=== PATIENT | male | born 1955 | race African-American/Black ===

== ENCOUNTER 2017-11-21 19:51 | Emergency (ER) | payer MEDICARE, MEDICAID ==
[~2017-11-21] VITALS: Ht 177.8 cm; Wt 61.0 kg
[2017-11-21] MEDS ORDERED: SODIUM CHLORIDE 0.9% 1,000 ML IV ONE (20:51)
[2017-11-21] MEDS ORDERED: VANCOMYCIN 1 G PREMIX 200 ML IV SCH (21:00)
[2017-11-21 21:15] LABS: EOSINOPHILS % 1.5 % (0.0-5.0); HEMATOCRIT. 34.4 % (42.0-52.0); HEMOGLOBIN. 10.4 g/dL (14.0-18.0); LYMPHOCYTES % 13.8 % (20.0-50.0); MEAN CORPUSCULAR HEMOGLOBIN 22.1 pg (28.0-32.0); MEAN PLATELET VOLUME 7.6 fl (7.4-10.4); MONOCYTES % 3.9 % (2.0-8.0); NEUTROPHILS % 79.8 % (40.0-76.0); PLATELET 410 x1000/uL (130-400); RED BLOOD CELL COUNT 4.72 mill/uL (4.7-6.1); RED CELL DISTRIBUTION WIDTH 20.7 % (11.6-14.6)
[2017-11-21 21:18] LABS: CHLORIDE 112 mEq/L (98-107)
[2017-11-21 21:25] LABS: BETA HYDROXYBUTYRATE 0.1 mMol/L (0.0-0.3)
[2017-11-22 01:08] LABS: CLARITY URINE CLEAR (CLEAR); COLOR URINE YELLOW (YELLOW); KETONES URINE NEGATIVE (NEGATIVE); LEUKOCYTE ESTERASE URINE NEGATIVE (NEGATIVE); NITRITE URINE NEGATIVE (NEGATIVE); OCCULT BLOOD URINE NEGATIVE (NEGATIVE); PROTEIN URINE 1+ (NEGATIVE); SPECIFIC GRAVITY URINE 1.033 (1.005-1.030)
[2017-11-22 07:39] VITALS: BP 138/88
== END 2017-11-22 08:36 | disposition short-term general hospital (02) ==
LOC: ER 21:19
DX: B08.4 Enteroviral vesicular stomatitis with exanthem (principal); M79.89 Other specified soft tissue disorders; E11.65 Type 2 diabetes mellitus with hyperglycemia
CPT/HCPCS: 36415; 71045; 73140; 80053; 81003; 82010; 85025; 93005; 96365; 99285; J3370; J7030

== ENCOUNTER 2020-09-15 14:27 | Inpatient (IN) | payer MEDICARE, MEDICAID ==
[~2020-09-15] VITALS: Ht 177.8 cm; Wt 72.7 kg
[2020-09-15] MEDS ORDERED: SODIUM CHLORIDE 0.9% 1,000 ML IV ONE (15:30)
[2020-09-15 15:56] LABS: EOSINOPHILS % 0.3 % (0.0-5.0); HEMATOCRIT. 35.1 % (42.0-52.0); HEMOGLOBIN. 10.3 g/dL (14.0-18.0); LYMPHOCYTES % 8.9 % (20.0-50.0); MEAN CORPUSCULAR HEMOGLOBIN 21.9 pg (28.0-32.0); MEAN CORPUSCULAR VOLUME 74.3 fL (80.0-94.0); MEAN PLATELET VOLUME 7.6 fl (7.4-10.4); MONOCYTES % 4.5 % (2.0-8.0); NEUTROPHILS % 85.3 % (40.0-76.0); PLATELET 399 x1000/uL (130-400); RED BLOOD CELL COUNT 4.72 mill/uL (4.7-6.1); RED CELL DISTRIBUTION WIDTH 20.1 % (11.6-14.6)
[2020-09-15] MEDS ORDERED: LORAZEPAM 2MG/ML CPJ IV ONE (16:00)
[2020-09-15 16:04] LABS: CHLORIDE 109 mEq/L (98-107)
[2020-09-15] MEDS ORDERED: SODIUM CHLORIDE 0.9% 1000ML BAG (SEPSIS BOLUS) IV ONE (16:45)
[2020-09-15 17:42] LABS: CLARITY URINE CLEAR (CLEAR); COLOR URINE YELLOW (YELLOW); KETONES URINE 1+ (NEGATIVE); LEUKOCYTE ESTERASE URINE NEGATIVE (NEGATIVE); NITRITE URINE NEGATIVE (NEGATIVE); OCCULT BLOOD URINE NEGATIVE (NEGATIVE); PROTEIN URINE TRACE (NEGATIVE)
[2020-09-15] MEDS ORDERED: ONDANSETRON HCL 4MG/2ML INJ IV PRN (18:00)
[2020-09-15] MEDS ORDERED: CEFTRIAXONE 1 G PREMIX 50 ML IV SCH (18:00)
[2020-09-15] MEDS ORDERED: AZITHROMYCIN 500 MG in DEXT 5% WATER 250 ML IV SCH (19:00)
[2020-09-15] MEDS: DEXT 5%/0.45% NACL 1000ML 1,000 ML IV SCH (20:24)
[2020-09-15] MEDS: HEPARIN 5000 UNITS/ML VIAL SUBCUT SCH (21:47)
[2020-09-16 04:00] VITALS: BP 112/61
[2020-09-16 04:08] VITALS: BP 112/61
[2020-09-16 08:00] VITALS: BP 104/59
[2020-09-16] MEDS: HEPARIN 5000 UNITS/ML VIAL SUBCUT SCH ×2 (08:57→21:26)
[2020-09-16 09:10] LABS: BASOPHILS % 0.3 % (0.0-2.0); EOSINOPHILS % 0.7 % (0.0-5.0); HEMATOCRIT. 35.2 % (42.0-52.0); HEMOGLOBIN. 10.5 g/dL (14.0-18.0); LYMPHOCYTES % 8.6 % (20.0-50.0); MEAN CORPUSCULAR HEMOGLOBIN 22.2 pg (28.0-32.0); MEAN CORPUSCULAR VOLUME 74.8 fL (80.0-94.0); MEAN PLATELET VOLUME 7.7 fl (7.4-10.4); MONOCYTES % 3.2 % (2.0-8.0); NEUTROPHILS % 87.2 % (40.0-76.0); PLATELET 412 x1000/uL (130-400); RED BLOOD CELL COUNT 4.71 mill/uL (4.7-6.1); RED CELL DISTRIBUTION WIDTH 20.1 % (11.6-14.6)
[2020-09-16 09:22] LABS: CHLORIDE 110 mEq/L (98-107)
[2020-09-16] MEDS: DEXT 5%/0.45% NACL 1000ML 1,000 ML IV SCH (10:50)
[2020-09-16 12:00] VITALS: BP 113/57
[2020-09-16 16:00] VITALS: BP 123/59
[2020-09-16] MEDS: AZITHROMYCIN 500 MG in DEXT 5% WATER 250 ML IV SCH (17:10)
[2020-09-16] MEDS: PANTOPRAZOLE SODIUM 40 MG/VIAL IV SCH (17:10)
[2020-09-16] MEDS: MORPHINE SULFATE 2 MG/ML CPJ (NOT FOR IM USE) IV PRN ×2 (19:04→22:51)
[2020-09-16 20:00] VITALS: BP 121/67
[2020-09-16] MEDS: CEFTRIAXONE 1,000 MG in DEXTROSE 5% WATER 50 ML IV SCH (22:51)
[2020-09-17] VITALS: BP 139/86
[2020-09-17] MEDS: IPRATROPIUM/ALBUTEROL 0.5-3(2.5)MG/3ML NEB HHN SCH ×4 (02:53→21:49)
[2020-09-17] MEDS: DEXT 5%/0.45% NACL 1000ML 1,000 ML IV SCH (03:50)
[2020-09-17 04:00] VITALS: BP 114/66
[2020-09-17] MEDS: MORPHINE SULFATE 2 MG/ML CPJ (NOT FOR IM USE) IV PRN ×2 (05:21→20:33)
[2020-09-17 07:46] LABS: BASOPHILS % 0.9 % (0.0-2.0); EOSINOPHILS % 2.2 % (0.0-5.0); HEMATOCRIT. 37.3 % (42.0-52.0); HEMOGLOBIN. 11.1 g/dL (14.0-18.0); LYMPHOCYTES % 11.6 % (20.0-50.0); MEAN CORPUSCULAR HEMOGLOBIN 22.3 pg (28.0-32.0); MEAN CORPUSCULAR VOLUME 75.4 fL (80.0-94.0); MEAN PLATELET VOLUME 8.3 fl (7.4-10.4); MONOCYTES % 6.5 % (2.0-8.0); NEUTROPHILS % 78.8 % (40.0-76.0); PLATELET 408 x1000/uL (130-400); RED BLOOD CELL COUNT 4.95 mill/uL (4.7-6.1)
[2020-09-17 07:56] LABS: CHLORIDE 107 mEq/L (98-107)
[2020-09-17 08:00] VITALS: BP 104/60
[2020-09-17 08:15] LABS: TOTAL IRON BINDING CAPACITY 337 ug/dL (250-450)
[2020-09-17 08:21] LABS: FOLIC ACID (FOLATE) SERUM 14.7 ng/mL (>5.38)
[2020-09-17] MEDS: HEPARIN 5000 UNITS/ML VIAL SUBCUT SCH ×2 (09:00→20:32)
[2020-09-17] MEDS: PANTOPRAZOLE SODIUM 40 MG/VIAL IV SCH (09:00)
[2020-09-17 12:00] VITALS: BP 109/61
[2020-09-17] MEDS: IRON SUCROSE COMPLEX 100 MG/5 ML ML IV SCH (13:26)
[2020-09-17 16:00] VITALS: BP 111/66
[2020-09-17] MEDS: AZITHROMYCIN 500 MG in DEXT 5% WATER 250 ML IV SCH (17:10)
[2020-09-17 20:00] VITALS: BP 114/66
[2020-09-17] MEDS: CEFTRIAXONE 1,000 MG in DEXTROSE 5% WATER 50 ML IV SCH (20:32)
[2020-09-17] MEDS: ATORVASTATIN CALCIUM 10MG TABLET PO SCH (20:32)
[2020-09-18] VITALS (7 sets, daily range): BP systolic 102–122; BP diastolic 58–68
[2020-09-18] MEDS: IPRATROPIUM/ALBUTEROL 0.5-3(2.5)MG/3ML NEB HHN SCH ×5 (01:42→21:40)
[2020-09-18] MEDS: DEXT 5%/0.45% NACL 1000ML 1,000 ML IV SCH ×2 (04:28→15:08)
[2020-09-18] MEDS: PANTOPRAZOLE SODIUM 40 MG/VIAL IV SCH (09:29)
[2020-09-18] MEDS: HEPARIN 5000 UNITS/ML VIAL SUBCUT SCH ×2 (09:29→20:03)
[2020-09-18] MEDS: IRON SUCROSE COMPLEX 100 MG/5 ML ML IV SCH (09:30)
[2020-09-18] MEDS: MORPHINE SULFATE 2 MG/ML CPJ (NOT FOR IM USE) IV PRN ×3 (09:30→20:04)
[2020-09-18 09:52] LABS: BASOPHILS % 1.1 % (0.0-2.0); EOSINOPHILS % 3.4 % (0.0-5.0); HEMATOCRIT. 37.7 % (42.0-52.0); HEMOGLOBIN. 11.1 g/dL (14.0-18.0); LYMPHOCYTES % 16.3 % (20.0-50.0); MEAN CORPUSCULAR HEMOGLOBIN 22.7 pg (28.0-32.0); MEAN CORPUSCULAR VOLUME 76.8 fL (80.0-94.0); MONOCYTES % 8.4 % (2.0-8.0); NEUTROPHILS % 70.8 % (40.0-76.0); RED CELL DISTRIBUTION WIDTH 20.2 % (11.6-14.6)
[2020-09-18 10:15] LABS: CHLORIDE 105 mEq/L (98-107)
[2020-09-18 10:39] LABS: BG BASE EXCESS 0.7 mmol/L (-2.0-2.0); BG CARBOXYHEMOGLOBIN 0.5 % (0.5-1.5); BG DEOXYHEMOGLOBIN 9.6 % (0.0-5.0); BG HCO3 ACT 25.8 mmol/L (22.0-26.0); BG METHEMOGLOBIN 0.3 % (0.0-1.5); BG OXYGEN SATURATION 90.3 % (92.0-98.5); BG OXYHEMOGLOBIN 89.6 % (94.0-97.0); BG PCO2 43.5 mmHg (35.0-45.0); BG PH 7.391 (7.350-7.450); BG PO2 58.6 mmHg (75.0-100.0); BG SAMPLE SITE RIGHT BRACHIAL; BG TOTAL HEMOGLOBIN 10.5 g/dL (12.0-18.0); BG VENT MODE ROOM AIR
[2020-09-18 10:56] LABS: PLATELET 338 x1000/uL (130-400)
[2020-09-18 10:57] LABS: MEAN PLATELET VOLUME 8.6 fl (7.4-10.4)
[2020-09-18 11:51] LABS: *AMPHETAMINES SCREEN URINE NEGATIVE (NEGATIVE); CANNABINOID URINE SCREEN NEGATIVE (NEGATIVE); OPIATES URINE SCREEN PRESUMTIVE POSITIVE (NEGATIVE)
[2020-09-18 11:52] LABS: *BARBITURATES SCREEN URINE NEGATIVE (NEGATIVE); *BENZODIAZEPINES SCREEN URINE NEGATIVE (NEGATIVE)
[2020-09-18 11:56] LABS: PHENCYCLIDINE URINE SCREEN NEGATIVE (NEGATIVE)
[2020-09-18 11:59] LABS: METHADONE URINE SCREEN NEGATIVE (NEGATIVE)
[2020-09-18 12:00] LABS: *COCAINE SCREEN URINE NEGATIVE (NEGATIVE)
[2020-09-18] MEDS: DOCUSATE SODIUM 250MG CAPSULE PO SCH (12:00)
[2020-09-18] MEDS: AZITHROMYCIN 500 MG in DEXT 5% WATER 250 ML IV SCH (17:21)
[2020-09-18] MEDS: ACETAMINOPHEN 325MG TABLET PO PRN (18:16)
[2020-09-18] MEDS: ATORVASTATIN CALCIUM 10MG TABLET PO SCH (20:03)
[2020-09-18] MEDS: CEFTRIAXONE 1,000 MG in DEXTROSE 5% WATER 50 ML IV SCH (20:03)
[2020-09-18] MEDS: TRAZODONE HCL 50MG TABLET PO PRN (20:32)
[2020-09-19] VITALS: BP 90/56
[2020-09-19] MEDS: IPRATROPIUM/ALBUTEROL 0.5-3(2.5)MG/3ML NEB HHN SCH ×4 (02:10→20:24)
[2020-09-19 08:00] VITALS: BP 114/56
[2020-09-19] MEDS: IRON SUCROSE COMPLEX 100 MG/5 ML ML IV SCH (09:33)
[2020-09-19] MEDS: DOCUSATE SODIUM 250MG CAPSULE PO SCH (09:33)
[2020-09-19] MEDS: PANTOPRAZOLE SODIUM 40 MG/VIAL IV SCH (09:33)
[2020-09-19] MEDS: HEPARIN 5000 UNITS/ML VIAL SUBCUT SCH ×2 (09:33→20:01)
[2020-09-19] MEDS: MORPHINE SULFATE 2 MG/ML CPJ (NOT FOR IM USE) IV PRN ×3 (10:09→20:05)
[2020-09-19 10:15] LABS: BASOPHILS % 0.9 % (0.0-2.0); EOSINOPHILS % 4.4 % (0.0-5.0); HEMATOCRIT. 36.4 % (42.0-52.0); HEMOGLOBIN. 10.6 g/dL (14.0-18.0); LYMPHOCYTES % 15.4 % (20.0-50.0); MEAN CORPUSCULAR HEMOGLOBIN 22.1 pg (28.0-32.0); MEAN CORPUSCULAR VOLUME 76.1 fL (80.0-94.0); MEAN PLATELET VOLUME 8.2 fl (7.4-10.4); MONOCYTES % 5.3 % (2.0-8.0); PLATELET 273 x1000/uL (130-400); RED BLOOD CELL COUNT 4.78 mill/uL (4.7-6.1); RED CELL DISTRIBUTION WIDTH 20.1 % (11.6-14.6)
[2020-09-19 10:19] LABS: CHLORIDE 105 mEq/L (98-107)
[2020-09-19 12:00] VITALS: BP 116/59
[2020-09-19 16:00] VITALS: BP 123/57
[2020-09-19] MEDS: AZITHROMYCIN 500 MG in DEXT 5% WATER 250 ML IV SCH (17:10)
[2020-09-19] MEDS: DEXT 5%/0.45% NACL 1000ML 1,000 ML IV SCH (17:42)
[2020-09-19] MEDS: CEFTRIAXONE 1,000 MG in DEXTROSE 5% WATER 50 ML IV SCH (20:00)
[2020-09-19] MEDS: ATORVASTATIN CALCIUM 10MG TABLET PO SCH (20:00)
[2020-09-19 21:08] VITALS: BP 108/70
[2020-09-20] VITALS: BP 131/61
[2020-09-20] MEDS: MORPHINE SULFATE 2 MG/ML CPJ (NOT FOR IM USE) IV PRN ×2 (00:06→06:19)
[2020-09-20] MEDS: IPRATROPIUM/ALBUTEROL 0.5-3(2.5)MG/3ML NEB HHN SCH ×4 (03:16→21:27)
[2020-09-20 04:00] VITALS: BP 127/50
[2020-09-20] MEDS ORDERED: BIMA2.5D4 EACHEYE (07:21)
[2020-09-20 08:00] VITALS: BP 132/72
[2020-09-20] MEDS: PANTOPRAZOLE SODIUM 40 MG/VIAL IV SCH (08:54)
[2020-09-20] MEDS: HYDROCODONE/ACETAMINOPHEN 10/325MG TABLET PO PRN ×2 (08:55→18:25)
[2020-09-20] MEDS: HEPARIN 5000 UNITS/ML VIAL SUBCUT SCH ×2 (08:55→21:12)
[2020-09-20] MEDS: DOCUSATE SODIUM 250MG CAPSULE PO SCH (08:55)
[2020-09-20] MEDS: MEROPENEM 1,000 MG in SODIUM CHLORIDE 0.9% 100 ML IV SCH ×2 (11:33→21:12)
[2020-09-20 12:00] VITALS: BP 104/50
[2020-09-20] MEDS: DEXT 5%/0.45% NACL 1000ML 1,000 ML IV SCH (12:17)
[2020-09-20 16:00] VITALS: BP 119/56
[2020-09-20 20:00] VITALS: BP 107/59
[2020-09-20] MEDS: ATORVASTATIN CALCIUM 10MG TABLET PO SCH (21:12)
[2020-09-20] MEDS: TRAZODONE HCL 50MG TABLET PO PRN (21:57)
[2020-09-21] VITALS: BP 121/61
[2020-09-21] MEDS: HYDROCODONE/ACETAMINOPHEN 10/325MG TABLET PO PRN ×5 (00:08→23:05)
[2020-09-21] MEDS: IPRATROPIUM/ALBUTEROL 0.5-3(2.5)MG/3ML NEB HHN SCH ×4 (01:19→22:05)
[2020-09-21 04:00] VITALS: BP 134/59
[2020-09-21] MEDS: MEROPENEM 1,000 MG in SODIUM CHLORIDE 0.9% 100 ML IV SCH ×3 (05:03→23:05)
[2020-09-21 08:00] VITALS: BP 122/69
[2020-09-21] MEDS: HEPARIN 5000 UNITS/ML VIAL SUBCUT SCH ×2 (08:52→21:00)
[2020-09-21] MEDS: DOCUSATE SODIUM 250MG CAPSULE PO SCH (08:52)
[2020-09-21] MEDS: DEXT 5%/0.45% NACL 1000ML 1,000 ML IV SCH (08:52)
[2020-09-21] MEDS: PANTOPRAZOLE SODIUM 40 MG/VIAL IV SCH (08:52)
[2020-09-21] MEDS: MORPHINE SULFATE 2 MG/ML CPJ (NOT FOR IM USE) IV PRN (08:53)
[2020-09-21 12:00] VITALS: BP 110/76
[2020-09-21 16:00] VITALS: BP 122/70
[2020-09-21 20:00] VITALS: BP 129/67
[2020-09-21] MEDS: ATORVASTATIN CALCIUM 10MG TABLET PO SCH (23:04)
[2020-09-21] MEDS: TRAZODONE HCL 50MG TABLET PO PRN (23:04)
[2020-09-22] VITALS: BP 128/69
[2020-09-22] MEDS: IPRATROPIUM/ALBUTEROL 0.5-3(2.5)MG/3ML NEB HHN SCH ×4 (02:40→20:42)
[2020-09-22 04:00] VITALS: BP 116/58
[2020-09-22] MEDS: MEROPENEM 1,000 MG in SODIUM CHLORIDE 0.9% 100 ML IV SCH ×3 (05:30→21:10)
[2020-09-22] MEDS: DEXT 5%/0.45% NACL 1000ML 1,000 ML IV SCH ×2 (05:36→17:10)
[2020-09-22 08:00] VITALS: BP 134/62
[2020-09-22] MEDS ORDERED: POTASSIUM CHLORIDE 20MEQ TABLET SR PO NR (09:15)
[2020-09-22] MEDS: DOCUSATE SODIUM 250MG CAPSULE PO SCH (09:26)
[2020-09-22] MEDS: PANTOPRAZOLE SODIUM 40 MG/VIAL IV SCH ×2 (09:26→21:11)
[2020-09-22] MEDS: HEPARIN 5000 UNITS/ML VIAL SUBCUT SCH (09:27)
[2020-09-22 10:02] LABS: BG BASE EXCESS 2.5 mmol/L (-2.0-2.0); BG CARBOXYHEMOGLOBIN 0.6 % (0.5-1.5); BG DEOXYHEMOGLOBIN 10.3 % (0.0-5.0); BG FRACTION INSPIRED OXYGEN 21; BG HCO3 ACT 27.5 mmol/L (22.0-26.0); BG METHEMOGLOBIN 0.3 % (0.0-1.5); BG OXYGEN SATURATION 89.6 % (92.0-98.5); BG OXYHEMOGLOBIN 88.8 % (94.0-97.0); BG PCO2 44.6 mmHg (35.0-45.0); BG PH 7.408 (7.350-7.450); BG SAMPLE SITE RIGHT RADIAL; BG TOTAL HEMOGLOBIN 10.7 g/dL (12.0-18.0); BG VENT MODE ROOM AIR
[2020-09-22] MEDS: HYDROCODONE/ACETAMINOPHEN 10/325MG TABLET PO PRN ×3 (10:05→21:30)
[2020-09-22 16:00] VITALS: BP 122/64
[2020-09-22 20:00] VITALS: BP 120/70
[2020-09-22] MEDS: BUDESONIDE 0.5MG/2ML NEB HHN SCH (20:42)
[2020-09-22] MEDS: ATORVASTATIN CALCIUM 10MG TABLET PO SCH (21:10)
[2020-09-23] VITALS: BP 105/60
[2020-09-23] MEDS: IPRATROPIUM/ALBUTEROL 0.5-3(2.5)MG/3ML NEB HHN SCH ×3 (01:42→21:38)
[2020-09-23 04:00] VITALS: BP 127/68
[2020-09-23] MEDS: MEROPENEM 1,000 MG in SODIUM CHLORIDE 0.9% 100 ML IV SCH ×3 (06:15→21:00)
[2020-09-23 07:25] LABS: INR 1.1; PARTIAL THROMBOPLASTIN TIME 36.2 sec (23.4-31.0); PROTHROMBIN TIME 11.9 sec (9.6-11.0)
[2020-09-23 07:35] LABS: BASOPHILS % 1.6 % (0.0-2.0); HEMATOCRIT. 30.8 % (42.0-52.0); HEMOGLOBIN. 9.4 g/dL (14.0-18.0); LYMPHOCYTES % 20.2 % (20.0-50.0); MEAN CORPUSCULAR HEMOGLOBIN 22.8 pg (28.0-32.0); MEAN CORPUSCULAR VOLUME 74.8 fL (80.0-94.0); MEAN PLATELET VOLUME 7.8 fl (7.4-10.4); NEUTROPHILS % 65.2 % (40.0-76.0); PLATELET 385 x1000/uL (130-400); RED BLOOD CELL COUNT 4.12 mill/uL (4.7-6.1)
[2020-09-23 08:34] LABS: CHLORIDE 103 mEq/L (98-107)
[2020-09-23] MEDS: DOCUSATE SODIUM 250MG CAPSULE PO SCH (09:00)
[2020-09-23] MEDS: DEXT 5%/0.45% NACL 1000ML 1,000 ML IV SCH (09:21)
[2020-09-23] MEDS: PANTOPRAZOLE SODIUM 40 MG/VIAL IV SCH ×2 (09:21→20:59)
[2020-09-23 12:00] VITALS: BP 121/74
[2020-09-23] MEDS: BUDESONIDE 0.5MG/2ML NEB HHN SCH ×2 (13:06→21:38)
[2020-09-23 16:00] VITALS: BP 136/72
[2020-09-23] MEDS ORDERED: PROPOFOL 200MG/20ML VIAL IV ONE (17:30)
[2020-09-23] MEDS ORDERED: LIDOCAINE HCL 1% 20ML VIAL (Pyxis) INJ ONE ×2 (17:30→17:36)
[2020-09-23] MEDS ORDERED: ONDANSETRON HCL 4MG/2ML INJ IV PRN (18:15)
[2020-09-23] MEDS ORDERED: HYDROMORPHONE HCL/PF 2MG/ML CPJ IV PRN (18:15)
[2020-09-23] MEDS ORDERED: MEPERIDINE HCL/PF 25MG/ML CPJ IV PRN (18:15)
[2020-09-23] MEDS ORDERED: LABETALOL 5MG/ML SYR 20 MG/4 ML SYRINGE IV PRN (18:15)
[2020-09-23 20:00] VITALS: BP 121/71
[2020-09-23] MEDS: ATORVASTATIN CALCIUM 10MG TABLET PO SCH (21:00)
[2020-09-24] VITALS: BP 137/71
[2020-09-24] MEDS: IPRATROPIUM/ALBUTEROL 0.5-3(2.5)MG/3ML NEB HHN SCH ×4 (02:15→21:13)
[2020-09-24] MEDS: DEXT 5%/0.45% NACL 1000ML 1,000 ML IV SCH ×2 (02:30→19:03)
[2020-09-24 04:00] VITALS: BP 207/121
[2020-09-24] MEDS: MEROPENEM 1,000 MG in SODIUM CHLORIDE 0.9% 100 ML IV SCH ×3 (05:45→20:37)
[2020-09-24 08:00] VITALS: BP 128/69
[2020-09-24] MEDS: DOCUSATE SODIUM 250MG CAPSULE PO SCH (08:35)
[2020-09-24] MEDS: BUDESONIDE 0.5MG/2ML NEB HHN SCH ×2 (09:41→21:10)
[2020-09-24] MEDS: PANTOPRAZOLE SODIUM 40 MG/VIAL IV SCH ×2 (10:11→20:37)
[2020-09-24 12:00] VITALS: BP 131/66
[2020-09-24 16:00] VITALS: BP 131/68
[2020-09-24 20:00] VITALS: BP 133/74
[2020-09-24] MEDS: MORPHINE SULFATE 2 MG/ML CPJ (NOT FOR IM USE) IV PRN (20:38)
[2020-09-24] MEDS: ATORVASTATIN CALCIUM 10MG TABLET PO SCH (21:00)
[2020-09-24] MEDS: TRAZODONE HCL 50MG TABLET PO PRN (22:56)
[2020-09-25] VITALS: BP 129/69
[2020-09-25] MEDS: MORPHINE SULFATE 2 MG/ML CPJ (NOT FOR IM USE) IV PRN ×6 (00:58→22:06)
[2020-09-25] MEDS: IPRATROPIUM/ALBUTEROL 0.5-3(2.5)MG/3ML NEB HHN SCH ×4 (01:35→21:11)
[2020-09-25] MEDS: MEROPENEM 1,000 MG in SODIUM CHLORIDE 0.9% 100 ML IV SCH (05:09)
[2020-09-25] MEDS: BUDESONIDE 0.5MG/2ML NEB HHN SCH (07:47)
[2020-09-25 08:00] VITALS: BP 103/55
[2020-09-25] MEDS: DOCUSATE SODIUM 250MG CAPSULE PO SCH (08:49)
[2020-09-25] MEDS: PANTOPRAZOLE SODIUM 40 MG/VIAL IV SCH ×2 (08:50→21:13)
[2020-09-25] MEDS: DEXT 5%/0.45% NACL 1000ML 1,000 ML IV SCH (12:30)
[2020-09-25] MEDS: LIDOCAINE/PRILOCAINE CREAM 5 GM TUBE TOP SCH (15:38)
[2020-09-25 16:00] VITALS: BP_SYST 120; BP_SYST 126; BP_DIAS 84
[2020-09-25 20:00] VITALS: BP 145/73
[2020-09-25] MEDS: ATORVASTATIN CALCIUM 10MG TABLET PO SCH (21:00)
[2020-09-26] VITALS: BP 121/64
[2020-09-26] MEDS: IPRATROPIUM/ALBUTEROL 0.5-3(2.5)MG/3ML NEB HHN SCH ×4 (02:43→20:18)
[2020-09-26 04:00] VITALS: BP 124/62
[2020-09-26] MEDS: DEXT 5%/0.45% NACL 1000ML 1,000 ML IV SCH (06:52)
[2020-09-26 08:00] VITALS: BP 123/66
[2020-09-26] MEDS: LIDOCAINE/PRILOCAINE CREAM 5 GM TUBE TOP SCH (08:42)
[2020-09-26] MEDS: DOCUSATE SODIUM 250MG CAPSULE PO SCH (08:42)
[2020-09-26] MEDS: PANTOPRAZOLE SODIUM 40 MG/VIAL IV SCH ×2 (08:42→21:16)
[2020-09-26] MEDS: MORPHINE SULFATE 2 MG/ML CPJ (NOT FOR IM USE) IV PRN ×3 (08:43→17:19)
[2020-09-26 12:00] VITALS: BP 127/66
[2020-09-26] MEDS: MEROPENEM 1,000 MG in SODIUM CHLORIDE 0.9% 100 ML IV SCH ×2 (12:59→21:16)
[2020-09-26 16:00] VITALS: BP 135/70
[2020-09-26 16:50] LABS: BASOPHILS % 1.3 % (0.0-2.0); EOSINOPHILS % 3.7 % (0.0-5.0); HEMATOCRIT. 39.7 % (42.0-52.0); HEMOGLOBIN. 11.5 g/dL (14.0-18.0); LYMPHOCYTES % 17.8 % (20.0-50.0); MEAN CORPUSCULAR HEMOGLOBIN 22.8 pg (28.0-32.0); MEAN CORPUSCULAR VOLUME 78.4 fL (80.0-94.0); MEAN PLATELET VOLUME 7.9 fl (7.4-10.4); MONOCYTES % 5.7 % (2.0-8.0); NEUTROPHILS % 71.5 % (40.0-76.0); PLATELET 369 x1000/uL (130-400); RED BLOOD CELL COUNT 5.06 mill/uL (4.7-6.1); RED CELL DISTRIBUTION WIDTH 21.1 % (11.6-14.6)
[2020-09-26 16:57] LABS: CHLORIDE 104 mEq/L (98-107)
[2020-09-26 20:00] VITALS: BP 151/67
[2020-09-26] MEDS: ATORVASTATIN CALCIUM 10MG TABLET PO SCH (21:00)
[2020-09-27] VITALS: BP 120/53
[2020-09-27] MEDS: IPRATROPIUM/ALBUTEROL 0.5-3(2.5)MG/3ML NEB HHN SCH ×3 (03:02→20:43)
[2020-09-27 08:00] VITALS: BP 105/54
[2020-09-27] MEDS: DOCUSATE SODIUM 250MG CAPSULE PO SCH (09:00)
[2020-09-27] MEDS: PANTOPRAZOLE SODIUM 40 MG/VIAL IV SCH ×2 (09:00→21:01)
[2020-09-27] MEDS: LIDOCAINE/PRILOCAINE CREAM 5 GM TUBE TOP SCH (09:18)
[2020-09-27 10:48] LABS: INR 1.2; PARTIAL THROMBOPLASTIN TIME 34.7 sec (23.4-31.0); PROTHROMBIN TIME 12.7 sec (9.6-11.0)
[2020-09-27 11:09] LABS: CHLORIDE 104 mEq/L (98-107)
[2020-09-27] MEDS ORDERED: LIDOCAINE HCL 1% 20ML VIAL (Pyxis) INJ ONE (11:57)
[2020-09-27 12:00] VITALS: BP 109/64
[2020-09-27] MEDS: DEXT 5%/0.45% NACL 1000ML 1,000 ML IV SCH (13:09)
[2020-09-27] MEDS: MORPHINE SULFATE 2 MG/ML CPJ (NOT FOR IM USE) IV PRN ×3 (13:09→21:20)
[2020-09-27] MEDS: MEROPENEM 1,000 MG in SODIUM CHLORIDE 0.9% 100 ML IV SCH ×2 (13:10→21:02)
[2020-09-27 16:00] VITALS: BP 106/64
[2020-09-27] MEDS: BLOOD SUGAR DIAGNOSTIC STRIP TEST SCH (17:40)
[2020-09-27] MEDS ORDERED: DEXTROSE 50% WATER 50ML SYRINGE IV NR (17:45)
[2020-09-27] MEDS: TOTAL PARENTERAL NUTRITION 2,500 ML IV SCH (18:28)
[2020-09-27 20:00] VITALS: BP 109/57
[2020-09-27] MEDS: ATORVASTATIN CALCIUM 10MG TABLET PO SCH (20:42)
[2020-09-27] MEDS ORDERED: CHLORHEXIDINE GLUCONATE 4% EXTERNAL USE TOP SCH (21:00)
[2020-09-27] MEDS: FAT EMULSIONS 500 ML IV SCH (21:56)
[2020-09-28] VITALS (51 sets, daily range): BP systolic 76–149; BP diastolic 31–73
[2020-09-28] MEDS: BLOOD SUGAR DIAGNOSTIC STRIP TEST SCH ×5 (00:55→17:12)
[2020-09-28] MEDS: MORPHINE SULFATE 2 MG/ML CPJ (NOT FOR IM USE) IV PRN ×4 (02:15→22:16)
[2020-09-28] MEDS: IPRATROPIUM/ALBUTEROL 0.5-3(2.5)MG/3ML NEB HHN SCH ×4 (02:40→21:02)
[2020-09-28] MEDS: MEROPENEM 1,000 MG in SODIUM CHLORIDE 0.9% 100 ML IV SCH ×3 (05:00→21:42)
[2020-09-28] MEDS: CHLORHEXIDINE GLUCONATE 4% EXTERNAL USE TOP SCH ×2 (05:02→09:00)
[2020-09-28] MEDS ORDERED: BUPIVACAINE HCL/PF 0.5% (5MG/ML) 10ML ONE (06:25)
[2020-09-28] MEDS ORDERED: SKIN ADHESIVE 0.7 GM EA TOP ONE (06:25)
[2020-09-28] MEDS ORDERED: TETRACAINE/BENZOCAINE/BUTAMBEN 20 GM SPRAY MM ONE (06:25)
[2020-09-28] MEDS ORDERED: BACITRACIN 50,000 UNITS/VIAL ONE (06:26)
[2020-09-28] MEDS: DEXT 5%/0.45% NACL 1000ML 1,000 ML IV SCH (06:30)
[2020-09-28 07:16] LABS: EOSINOPHILS % 3.9 % (0.0-5.0); HEMATOCRIT. 38.4 % (42.0-52.0); HEMOGLOBIN. 10.1 g/dL (14.0-18.0); LYMPHOCYTES % 9.6 % (20.0-50.0); MEAN CORPUSCULAR HEMOGLOBIN 23.6 pg (28.0-32.0); MEAN CORPUSCULAR VOLUME 89.6 fL (80.0-94.0); MONOCYTES % 4.9 % (2.0-8.0); NEUTROPHILS % 80.6 % (40.0-76.0); PLATELET 349 x1000/uL (130-400); RED BLOOD CELL COUNT 4.28 mill/uL (4.7-6.1)
[2020-09-28] MEDS ORDERED: MORPHINE SULFATE/PF 1MG/ML 10ML AMP ONE (07:33)
[2020-09-28] MEDS ORDERED: ROCURONIUM BROMIDE 10MG/ML VIAL 5ML IV ONE ×2 (07:37→10:18)
[2020-09-28] MEDS ORDERED: DEXAMETHASONE 4MG/ML 1ML VIAL ONE (07:49)
[2020-09-28] MEDS ORDERED: CEFAZOLIN SODIUM 1000MG/VIAL ONE (07:49)
[2020-09-28] MEDS ORDERED: ALBUMIN HUMAN 12.5G/250ML (5%) IV ONE ×2 (08:13→08:15)
[2020-09-28] MEDS ORDERED: ALBUMIN HUMAN 25GM/100ML (25%) IV ONE (08:16)
[2020-09-28] MEDS ORDERED: METOPROLOL TARTRATE 5MG/5ML VIAL IV ONE (08:20)
[2020-09-28] MEDS ORDERED: HYDRALAZINE 20MG/ML VIAL ONE (08:25)
[2020-09-28] MEDS: LIDOCAINE/PRILOCAINE CREAM 5 GM TUBE TOP SCH (09:00)
[2020-09-28] MEDS: DOCUSATE SODIUM 250MG CAPSULE PO SCH (09:00)
[2020-09-28] MEDS: PANTOPRAZOLE SODIUM 40 MG/VIAL IV SCH ×2 (09:00→21:49)
[2020-09-28] MEDS ORDERED: CALCIUM CHLORIDE 1GM/10ML SYR IV ONE (09:30)
[2020-09-28] MEDS ORDERED: BACITRACIN 15GM TUBE TOP ONE (09:49)
[2020-09-28] MEDS ORDERED: VASOPRESSIN 20 UNIT/ML 1ML ONE (09:49)
[2020-09-28] MEDS ORDERED: KETOROLAC 30MG/ML VIAL ONE (10:58)
[2020-09-28] MEDS ORDERED: NEOSTIGMINE METHYLSULFATE 1MG/ML 10 ML VIAL ONE (11:07)
[2020-09-28] MEDS ORDERED: GLYCOPYRROLATE 0.2 MG/ML 2ML VIAL ONE (11:07)
[2020-09-28] MEDS ORDERED: MAGNESIUM 1 G PREMIX 100 ML IV PRN (11:15)
[2020-09-28] MEDS ORDERED: MAGNESIUM 2 G PREMIX 50 ML IV PRN (11:15)
[2020-09-28] MEDS ORDERED: ONDANSETRON HCL 4MG/2ML INJ IV PRN (11:15)
[2020-09-28] MEDS ORDERED: ALBUMIN HUMAN 25GM/100ML (25%) IV NR (11:15)
[2020-09-28] MEDS ORDERED: ALBUMIN HUMAN 12.5G/250ML (5%) IV PRN (11:15)
[2020-09-28] MEDS ORDERED: DOPAMINE 400MG/250ML PREMIX 250 ML IV SCH (11:15)
[2020-09-28] MEDS ORDERED: FAMOTIDINE 20MG/2ML VIAL IV SCH (11:15)
[2020-09-28] MEDS ORDERED: SODIUM CHLORIDE 0.9% 500 ML IV PRN (11:15)
[2020-09-28] MEDS ORDERED: CALCIUM CHLORIDE 3,000 MG in DEXT 5% WATER 250 ML IV PRN (11:15)
[2020-09-28] MEDS ORDERED: KCL 10MEQ/50ML PREMIX 200 ML IV PRN (11:45)
[2020-09-28] MEDS ORDERED: KCL 10MEQ/50ML PREMIX 150 ML IV PRN (11:45)
[2020-09-28] MEDS ORDERED: KCL 10MEQ/50ML PREMIX 100 ML IV PRN (11:45)
[2020-09-28 12:01] LABS: BG BASE EXCESS 1.5 mmol/L (-2.0-2.0); BG CARBOXYHEMOGLOBIN 0.3 % (0.5-1.5); BG DEOXYHEMOGLOBIN 0.6 % (0.0-5.0); BG FRACTION INSPIRED OXYGEN 40; BG HCO3 ACT 28.1 mmol/L (22.0-26.0); BG METHEMOGLOBIN 0.2 % (0.0-1.5); BG OXYGEN SATURATION 99.4 % (92.0-98.5); BG OXYHEMOGLOBIN 98.9 % (94.0-97.0); BG PCO2 54.9 mmHg (35.0-45.0); BG PH 7.327 (7.350-7.450); BG PO2 239.6 mmHg (75.0-100.0); BG SAMPLE SITE ALINE; BG TOTAL HEMOGLOBIN 9.4 g/dL (12.0-18.0); BG VENT MODE MASK - SIMPLE
[2020-09-28 12:30] LABS: HEMATOCRIT. 27.6 % (42.0-52.0); HEMOGLOBIN. 8.4 g/dL (14.0-18.0); MEAN CORPUSCULAR HEMOGLOBIN 22.8 pg (28.0-32.0); MEAN CORPUSCULAR VOLUME 75.2 fL (80.0-94.0); MEAN PLATELET VOLUME 7.7 fl (7.4-10.4); PLATELET 326 x1000/uL (130-400); RED BLOOD CELL COUNT 3.67 mill/uL (4.7-6.1); RED CELL DISTRIBUTION WIDTH 21.2 % (11.6-14.6)
[2020-09-28] MEDS ORDERED: MAGNESIUM SULFATE 3 GM in DEXT 5% WATER 100 ML IV PRN (12:30)
[2020-09-28 12:42] LABS: CHLORIDE 106 mEq/L (98-107)
[2020-09-28 13:06] LABS: PLATELET ESTIMATE NORMAL
[2020-09-28 13:08] LABS: PHOSPHORUS 2.4 mg/dL (2.5-4.9)
[2020-09-28 13:46] LABS: PLATELET ESTIMATE NORMAL
[2020-09-28] MEDS: CEFAZOLIN 1000MG PREMIX 50 ML IV SCH ×2 (13:48→21:36)
[2020-09-28 13:55] LABS: INR 1.3; PARTIAL THROMBOPLASTIN TIME 30.5 sec (23.4-31.0); PROTHROMBIN TIME 13.6 sec (9.6-11.0)
[2020-09-28] MEDS: LIDOCAINE HCL 4% CREAM 76GM TUBE TP SCH (15:00)
[2020-09-28] MEDS ORDERED: BACITRACIN 15GM TUBE TOP SCH (17:00)
[2020-09-28] MEDS: KETOROLAC 30MG/ML VIAL IV PRN (17:15)
[2020-09-28] MEDS: TOTAL PARENTERAL NUTRITION 2,500 ML IV SCH (18:07)
[2020-09-28 19:01] LABS: BG BASE EXCESS -1.7 mmol/L (-2.0-2.0); BG CARBOXYHEMOGLOBIN 0.6 % (0.5-1.5); BG DEOXYHEMOGLOBIN 12.7 % (0.0-5.0); BG FRACTION INSPIRED OXYGEN 21; BG HCO3 ACT 24.1 mmol/L (22.0-26.0); BG METHEMOGLOBIN 0.3 % (0.0-1.5); BG OXYGEN SATURATION 87.2 % (92.0-98.5); BG OXYHEMOGLOBIN 86.4 % (94.0-97.0); BG PCO2 45.7 mmHg (35.0-45.0); BG PO2 53.5 mmHg (75.0-100.0); BG SAMPLE SITE ALINE; BG TOTAL HEMOGLOBIN 8.8 g/dL (12.0-18.0); BG VENT MODE ROOM AIR
[2020-09-28 19:16] LABS: HEMOGLOBIN. 7.9 g/dL (14.0-18.0); MEAN CORPUSCULAR VOLUME 79.4 fL (80.0-94.0); MEAN PLATELET VOLUME 7.7 fl (7.4-10.4); PLATELET 220 x1000/uL (130-400); RED BLOOD CELL COUNT 3.28 mill/uL (4.7-6.1)
[2020-09-28] MEDS ORDERED: FUROSEMIDE 40MG/4ML VIAL IVP NR (20:00)
[2020-09-28 20:13] LABS: PLATELET ESTIMATE NORMAL
[2020-09-28] MEDS: ATORVASTATIN CALCIUM 10MG TABLET PO SCH (21:00)
[2020-09-28] MEDS: FAT EMULSIONS 500 ML IV SCH (21:06)
[2020-09-28] MEDS ORDERED: MAGNESIUM 2 G PREMIX 50 ML IV NR (21:30)
[2020-09-29] VITALS (57 sets, daily range): BP systolic 22–174; BP diastolic 14–93
[2020-09-29] MEDS: BLOOD SUGAR DIAGNOSTIC STRIP TEST SCH ×3 (00:04→11:39)
[2020-09-29] MEDS: IPRATROPIUM/ALBUTEROL 0.5-3(2.5)MG/3ML NEB HHN SCH ×6 (00:29→21:01)
[2020-09-29] MEDS: DEXT 5%/0.45% NACL 1000ML 1,000 ML IV SCH (01:46)
[2020-09-29] MEDS: KETOROLAC 30MG/ML VIAL IV PRN (03:16)
[2020-09-29] MEDS: CEFAZOLIN 1000MG PREMIX 50 ML IV SCH ×2 (05:00→12:13)
[2020-09-29 05:54] LABS: CHLORIDE 101 mEq/L (98-107)
[2020-09-29] MEDS: MEROPENEM 1,000 MG in SODIUM CHLORIDE 0.9% 100 ML IV SCH ×3 (06:00→22:10)
[2020-09-29 06:05] LABS: HEMATOCRIT. 32.6 % (42.0-52.0); HEMOGLOBIN. 10.5 g/dL (14.0-18.0); MEAN CORPUSCULAR VOLUME 80.8 fL (80.0-94.0); PLATELET 185 x1000/uL (130-400); RED BLOOD CELL COUNT 4.04 mill/uL (4.7-6.1); RED CELL DISTRIBUTION WIDTH 20.2 % (11.6-14.6)
[2020-09-29 06:18] LABS: PHOSPHORUS 0.7 mg/dL (2.5-4.9)
[2020-09-29] MEDS ORDERED: FUROSEMIDE 40MG/4ML VIAL IVP NR (07:15)
[2020-09-29] MEDS: PANTOPRAZOLE SODIUM 40 MG/VIAL IV SCH ×2 (07:59→21:23)
[2020-09-29] MEDS: MORPHINE SULFATE 2 MG/ML CPJ (NOT FOR IM USE) IV PRN (08:00)
[2020-09-29] MEDS ORDERED: MAGNESIUM 2 G PREMIX 50 ML IV ONE (08:00)
[2020-09-29 08:07] LABS: BG BASE EXCESS -0.1 mmol/L (-2.0-2.0); BG CARBOXYHEMOGLOBIN 0.3 % (0.5-1.5); BG DEOXYHEMOGLOBIN 2.8 % (0.0-5.0); BG HCO3 ACT 24.6 mmol/L (22.0-26.0); BG METHEMOGLOBIN 0.3 % (0.0-1.5); BG OXYGEN SATURATION 97.2 % (92.0-98.5); BG OXYHEMOGLOBIN 96.6 % (94.0-97.0); BG PCO2 40.6 mmHg (35.0-45.0); BG PH 7.401 (7.350-7.450); BG PO2 98.4 mmHg (75.0-100.0); BG SAMPLE SITE ALINE; BG TOTAL HEMOGLOBIN 10.5 g/dL (12.0-18.0); BG VENT MODE NASAL CANNULA
[2020-09-29] MEDS: LIDOCAINE HCL 4% CREAM 76GM TUBE TP SCH (08:18)
[2020-09-29] MEDS: DOCUSATE SODIUM 250MG CAPSULE PO SCH (09:00)
[2020-09-29] MEDS ORDERED: SODIUM PHOS,M-BASIC-D-BASIC 30 MM in SODIUM CHLORIDE 0.9% 500 ML IV SCH (11:00)
[2020-09-29] MEDS ORDERED: SODIUM PHOS,M-BASIC-D-BASIC 20 MM in SODIUM CHLORIDE 0.9% 250 ML IV SCH (12:00)
[2020-09-29] MEDS ORDERED: ALBUMIN HUMAN 25GM/100ML (25%) IV NR (13:00)
[2020-09-29 14:44] LABS: PLATELET ESTIMATE NORMAL
[2020-09-29] MEDS ORDERED: BACITRACIN 50,000 UNITS/VIAL ONE (17:23)
[2020-09-29] MEDS ORDERED: BUPIVACAINE HCL/PF 0.5% (5MG/ML) 10ML ONE (17:23)
[2020-09-29] MEDS ORDERED: LIDOCAINE HCL 1% 20ML VIAL (Pyxis) INJ ONE (17:23)
[2020-09-29] MEDS ORDERED: ROCURONIUM BROMIDE 10MG/ML VIAL 5ML IV ONE (18:37)
[2020-09-29] MEDS ORDERED: HYDROMORPHONE HCL/PF 2MG/ML (OR) ONE (18:39)
[2020-09-29] MEDS ORDERED: CALCIUM CHLORIDE 1GM/10ML SYR IV ONE (18:54)
[2020-09-29] MEDS: TOTAL PARENTERAL NUTRITION 2,500 ML IV SCH (20:18)
[2020-09-29] MEDS: ATORVASTATIN CALCIUM 10MG TABLET PO SCH (20:20)
[2020-09-30] VITALS (22 sets, daily range): BP systolic 76–164; BP diastolic 41–94
[2020-09-30] MEDS: ATORVASTATIN CALCIUM 10MG TABLET PO SCH (01:09)
[2020-09-30] MEDS: TRAZODONE HCL 50MG TABLET PO PRN (01:10)
[2020-09-30] MEDS: ACETAMINOPHEN 325MG TABLET PO PRN (01:11)
[2020-09-30] MEDS: IPRATROPIUM/ALBUTEROL 0.5-3(2.5)MG/3ML NEB HHN SCH ×6 (04:30→21:08)
[2020-09-30 06:46] LABS: CHLORIDE 107 mEq/L (98-107); HEMATOCRIT. 34.4 % (42.0-52.0); HEMOGLOBIN. 10.8 g/dL (14.0-18.0); MEAN CORPUSCULAR HEMOGLOBIN 25.6 pg (28.0-32.0); MEAN CORPUSCULAR VOLUME 81.3 fL (80.0-94.0); MEAN PLATELET VOLUME 8.3 fl (7.4-10.4); PLATELET 187 x1000/uL (130-400); RED BLOOD CELL COUNT 4.24 mill/uL (4.7-6.1); RED CELL DISTRIBUTION WIDTH 20.6 % (11.6-14.6)
[2020-09-30 06:53] LABS: PHOSPHORUS 1.1 mg/dL (2.5-4.9)
[2020-09-30] MEDS: MEROPENEM 1,000 MG in SODIUM CHLORIDE 0.9% 100 ML IV SCH ×2 (07:24→16:24)
[2020-09-30] MEDS ORDERED: MORPHINE SULFATE 2 MG/ML CPJ (NOT FOR IM USE) IV PRN (07:30)
[2020-09-30] MEDS: DOCUSATE SODIUM 250MG CAPSULE PO SCH (08:15)
[2020-09-30] MEDS: PANTOPRAZOLE SODIUM 40 MG/VIAL IV SCH ×2 (08:15→20:51)
[2020-09-30] MEDS: LIDOCAINE HCL 4% CREAM 76GM TUBE TP SCH (08:16)
[2020-09-30] MEDS ORDERED: HYDRALAZINE 20MG/ML VIAL IV PRN (10:00)
[2020-09-30 10:41] LABS: PLATELET ESTIMATE NORMAL
[2020-09-30] MEDS ORDERED: SODIUM PHOS,M-BASIC-D-BASIC 20 MM in DEXT 5% WATER 243.3333 ML IV SCH (11:00)
[2020-09-30] MEDS ORDERED: MAGNESIUM 2 G PREMIX 50 ML IV NR (13:00)
[2020-09-30] MEDS: MORPHINE SULFATE 2 MG/ML CPJ (NOT FOR IM USE) IV PRN ×2 (16:25→19:58)
[2020-09-30] MEDS ORDERED: BISACODYL 10MG SUPP PR PRN (17:00)
[2020-09-30] MEDS ORDERED: MINERAL OIL ENEMA 133ML PR NR (18:30)
[2020-10-01] VITALS (12 sets, daily range): BP systolic 95–145; BP diastolic 57–83
[2020-10-01] MEDS: IPRATROPIUM/ALBUTEROL 0.5-3(2.5)MG/3ML NEB HHN SCH ×6 (00:33→20:25)
[2020-10-01] MEDS: MORPHINE SULFATE 2 MG/ML CPJ (NOT FOR IM USE) IV PRN ×2 (01:17→08:05)
[2020-10-01] MEDS: MEROPENEM 1,000 MG in SODIUM CHLORIDE 0.9% 100 ML IV SCH ×4 (01:30→21:40)
[2020-10-01] MEDS: TOTAL PARENTERAL NUTRITION 1,600 ML IV SCH ×2 (05:56→21:45)
[2020-10-01 07:00] LABS: HEMATOCRIT. 35.5 % (42.0-52.0); HEMOGLOBIN. 11.2 g/dL (14.0-18.0); MEAN CORPUSCULAR HEMOGLOBIN 26.1 pg (28.0-32.0); MEAN CORPUSCULAR VOLUME 82.4 fL (80.0-94.0); PLATELET 182 x1000/uL (130-400); RED CELL DISTRIBUTION WIDTH 21.3 % (11.6-14.6)
[2020-10-01 07:07] LABS: CHLORIDE 101 mEq/L (98-107)
[2020-10-01 07:17] LABS: PHOSPHORUS 1.7 mg/dL (2.5-4.9)
[2020-10-01] MEDS: PANTOPRAZOLE SODIUM 40 MG/VIAL IV SCH ×2 (08:03→21:39)
[2020-10-01] MEDS: LIDOCAINE HCL 4% CREAM 76GM TUBE TP SCH ×2 (08:06→09:00)
[2020-10-01] MEDS: HYDROCODONE/ACETAMINOPHEN 5/325MG TABLET JT PRN ×3 (10:48→22:35)
[2020-10-01 14:21] LABS: PLATELET ESTIMATE NORMAL
[2020-10-01] MEDS: DOCUSATE SODIUM SUGAR FREE 100MG/10ML UDC NG SCH (16:55)
[2020-10-01] MEDS: ACETYLCYSTEINE 100MG/ML 10% VIAL 4ML INH SCH (17:22)
[2020-10-01] MEDS ORDERED: SODIUM PHOS,M-BASIC-D-BASIC 20 MM in DEXT 5% WATER 243.3333 ML IV NR (18:30)
[2020-10-01] MEDS: ATORVASTATIN CALCIUM 10MG TABLET PO SCH (21:39)
[2020-10-01] MEDS: FAT EMULSIONS 500 ML IV SCH ×2 (21:40→23:33)
[2020-10-02] VITALS (26 sets, daily range): BP systolic 101–154; BP diastolic 47–98
[2020-10-02] MEDS: IPRATROPIUM/ALBUTEROL 0.5-3(2.5)MG/3ML NEB HHN SCH ×4 (00:57→13:40)
[2020-10-02] MEDS: ACETYLCYSTEINE 100MG/ML 10% VIAL 4ML INH SCH ×3 (00:58→13:40)
[2020-10-02] MEDS ORDERED: AMIODARONE HCL 900 MG in DEXT 5% WATER 482 ML IV PRN (03:30)
[2020-10-02] MEDS ORDERED: AMIODARONE HCL 150 MG in DEXT 5% WATER 100 ML IV NR (03:30)
[2020-10-02] MEDS: MEROPENEM 1,000 MG in SODIUM CHLORIDE 0.9% 100 ML IV SCH ×3 (06:00→23:46)
[2020-10-02] MEDS: DOCUSATE SODIUM SUGAR FREE 100MG/10ML UDC NG SCH ×3 (08:50→16:43)
[2020-10-02] MEDS: HYDROCODONE/ACETAMINOPHEN 5/325MG TABLET JT PRN ×3 (08:50→19:57)
[2020-10-02] MEDS: PANTOPRAZOLE SODIUM 40 MG/VIAL IV SCH ×2 (08:51→23:46)
[2020-10-02 09:22] LABS: HEMATOCRIT. 39.4 % (42.0-52.0); HEMOGLOBIN. 12.1 g/dL (14.0-18.0); MEAN CORPUSCULAR HEMOGLOBIN 25.7 pg (28.0-32.0); MEAN CORPUSCULAR VOLUME 83.6 fL (80.0-94.0); MEAN PLATELET VOLUME 8.3 fl (7.4-10.4); PLATELET 227 x1000/uL (130-400); RED BLOOD CELL COUNT 4.71 mill/uL (4.7-6.1)
[2020-10-02 09:33] LABS: CHLORIDE 98 mEq/L (98-107)
[2020-10-02] MEDS ORDERED: MAGNESIUM SULFATE 3 GM in DEXT 5% WATER 96 ML IV NR (11:30)
[2020-10-02 12:36] LABS: PLATELET ESTIMATE NORMAL
[2020-10-02 12:59] LABS: PHOSPHORUS 2.2 mg/dL (2.5-4.9)
[2020-10-02 16:33] LABS: BG BASE EXCESS 4.9 mmol/L (-2.0-2.0); BG DEOXYHEMOGLOBIN 2.4 % (0.0-5.0); BG FRACTION INSPIRED OXYGEN 28; BG HCO3 ACT 28.9 mmol/L (22.0-26.0); BG METHEMOGLOBIN 0.2 % (0.0-1.5); BG OXYGEN SATURATION 97.6 % (92.0-98.5); BG OXYHEMOGLOBIN 96.4 % (94.0-97.0); BG PH 7.476 (7.350-7.450); BG PO2 98.7 mmHg (75.0-100.0); BG SAMPLE SITE LEFT RADIAL; BG VENT MODE NASAL CANNULA
[2020-10-02] MEDS: MORPHINE SULFATE 2 MG/ML CPJ (NOT FOR IM USE) IV PRN (16:42)
[2020-10-02] MEDS ORDERED: TOTAL PARENTERAL NUTRITION 1,000 ML IV SCH (21:00)
[2020-10-02] MEDS ORDERED: HEPARIN 5000 UNITS/ML VIAL SUBCUT SCH (21:00)
[2020-10-02] MEDS ORDERED: AMIODARONE HCL 200 MG TABLET PO NR (21:00)
[2020-10-02] MEDS: IPRATROPIUM/ALBUTEROL 0.5-3(2.5)MG/3ML NEB HHN PRN (21:07)
[2020-10-02] MEDS ORDERED: IOHEXOL-350 100 ML BOTTLE ONE (21:11)
[2020-10-02] MEDS: ATORVASTATIN CALCIUM 10MG TABLET PO SCH (23:46)
[2020-10-03] VITALS (14 sets, daily range): BP systolic 106–140; BP diastolic 64–97
[2020-10-03] MEDS: HYDROCODONE/ACETAMINOPHEN 5/325MG TABLET JT PRN ×3 (02:04→21:12)
[2020-10-03] MEDS: IPRATROPIUM/ALBUTEROL 0.5-3(2.5)MG/3ML NEB HHN PRN (03:18)
[2020-10-03 06:25] LABS: HEMATOCRIT. 39.6 % (42.0-52.0); HEMOGLOBIN. 12.3 g/dL (14.0-18.0); MEAN CORPUSCULAR HEMOGLOBIN 26.2 pg (28.0-32.0); MEAN CORPUSCULAR VOLUME 84.2 fL (80.0-94.0); MEAN PLATELET VOLUME 8.6 fl (7.4-10.4); PLATELET 236 x1000/uL (130-400); RED BLOOD CELL COUNT 4.71 mill/uL (4.7-6.1); RED CELL DISTRIBUTION WIDTH 20.6 % (11.6-14.6)
[2020-10-03 06:29] LABS: CHLORIDE 95 mEq/L (98-107)
[2020-10-03] MEDS: MEROPENEM 1,000 MG in SODIUM CHLORIDE 0.9% 100 ML IV SCH ×4 (06:34→22:25)
[2020-10-03] MEDS ORDERED: AMIODARONE HCL 200 MG TABLET JT SCH (09:00)
[2020-10-03] MEDS: PANTOPRAZOLE SODIUM 40 MG/VIAL IV SCH ×2 (09:55→21:11)
[2020-10-03] MEDS: DOCUSATE SODIUM SUGAR FREE 100MG/10ML UDC NG SCH ×2 (09:55→16:01)
[2020-10-03] MEDS ORDERED: FUROSEMIDE 40MG/4ML VIAL IVP NR (10:45)
[2020-10-03] MEDS ORDERED: AMIODARONE HCL 50MG/ML 3ML VIAL IV ONE (11:30)
[2020-10-03] MEDS ORDERED: AMIODARONE HCL 150 MG in DEXT 5% WATER 100 ML IV ONE (11:45)
[2020-10-03] MEDS ORDERED: DILTIAZEM HCL 5MG/ML 5ML VIAL IV PRN ×2 (12:00→15:45)
[2020-10-03] MEDS ORDERED: MAGNESIUM 2 G PREMIX 50 ML IV NR (13:00)
[2020-10-03] MEDS ORDERED: AMIODARONE HCL 150 MG in DEXT 5% WATER 100 ML IV SCH (13:00)
[2020-10-03] MEDS ORDERED: DILTIAZEM HCL 5MG/ML 5ML VIAL IV SCH (14:15)
[2020-10-03 14:29] LABS: PLATELET ESTIMATE NORMAL
[2020-10-03] MEDS: AMIODARONE HCL 900 MG in DEXT 5% WATER 482 ML IV SCH (15:38)
[2020-10-03] MEDS ORDERED: DILTIAZEM HCL 30MG TABLET PO SCH (18:00)
[2020-10-03] MEDS ORDERED: DILTIAZEM HCL 5MG/ML 5ML VIAL IV NR (21:00)
[2020-10-03] MEDS: ATORVASTATIN CALCIUM 10MG TABLET PO SCH (21:12)
[2020-10-03] MEDS ORDERED: MAGNESIUM SULFATE 3 GM in DEXT 5% WATER 96 ML IV NR (23:15)
[2020-10-03] MEDS ORDERED: AMIODARONE HCL 150 MG in DEXT 5% WATER 100 ML IV NR (23:15)
[2020-10-03] MEDS: TRAZODONE HCL 50MG TABLET PO PRN (23:33)
[2020-10-03] MEDS: METOPROLOL TARTRATE 25MG TABLET PO SCH (23:34)
[2020-10-04] VITALS (58 sets, daily range): BP systolic 47–156; BP diastolic 17–103
[2020-10-04] MEDS: MORPHINE SULFATE 2 MG/ML CPJ (NOT FOR IM USE) IV PRN (01:15)
[2020-10-04] MEDS ORDERED: IPRATROPIUM/ALBUTEROL 0.5-3(2.5)MG/3ML NEB HHN PRN (01:30)
[2020-10-04] MEDS ORDERED: FUROSEMIDE 40MG/4ML VIAL IVP NR (02:00)
[2020-10-04 03:42] LABS: BG BASE EXCESS 1.2 mmol/L (-2.0-2.0); BG CARBOXYHEMOGLOBIN 1.4 % (0.5-1.5); BG DEOXYHEMOGLOBIN 5.7 % (0.0-5.0); BG FRACTION INSPIRED OXYGEN 28; BG HCO3 ACT 24.2 mmol/L (22.0-26.0); BG METHEMOGLOBIN 0.2 % (0.0-1.5); BG OXYGEN SATURATION 94.2 % (92.0-98.5); BG OXYHEMOGLOBIN 92.7 % (94.0-97.0); BG PCO2 33.6 mmHg (35.0-45.0); BG PH 7.476 (7.350-7.450); BG PO2 67.5 mmHg (75.0-100.0); BG SAMPLE SITE RIGHT RADIAL; BG VENT MODE NASAL CANNULA
[2020-10-04] MEDS: DILTIAZEM HCL 60MG TABLET PO SCH ×4 (06:07→18:00)
[2020-10-04] MEDS: MEROPENEM 1,000 MG in SODIUM CHLORIDE 0.9% 100 ML IV SCH ×2 (06:07→12:54)
[2020-10-04 07:00] LABS: HEMATOCRIT. 44.2 % (42.0-52.0); HEMOGLOBIN. 14.1 g/dL (14.0-18.0); MEAN CORPUSCULAR HEMOGLOBIN 26.3 pg (28.0-32.0); MEAN CORPUSCULAR VOLUME 82.5 fL (80.0-94.0); MEAN PLATELET VOLUME 8.1 fl (7.4-10.4); PLATELET 266 x1000/uL (130-400); RED BLOOD CELL COUNT 5.36 mill/uL (4.7-6.1); RED CELL DISTRIBUTION WIDTH 20.2 % (11.6-14.6)
[2020-10-04 07:15] LABS: CHLORIDE 93 mEq/L (98-107)
[2020-10-04] MEDS: DOCUSATE SODIUM SUGAR FREE 100MG/10ML UDC NG SCH ×2 (09:05→17:00)
[2020-10-04] MEDS: PANTOPRAZOLE SODIUM 40 MG/VIAL IV SCH ×2 (09:05→20:46)
[2020-10-04] MEDS: METOPROLOL TARTRATE 25MG TABLET PO SCH ×2 (09:52→21:00)
[2020-10-04] MEDS ORDERED: ENOXAPARIN 40MG/0.4ML SYR SUBCUT NR (11:30)
[2020-10-04 12:20] LABS: CREATINE KINASE MB FRACTION 1.5 ng/mL (0.5-3.6)
[2020-10-04] MEDS: HYDROCODONE/ACETAMINOPHEN 5/325MG TABLET JT PRN (12:54)
[2020-10-04] MEDS ORDERED: SODIUM POLYSTYRENE SULFONATE 15 G/60 ML BOT PO SCH (14:00)
[2020-10-04] MEDS: AMIODARONE HCL 900 MG in DEXT 5% WATER 482 ML IV SCH (14:20)
[2020-10-04 15:30] LABS: ATYPICAL LYMPHOCYTES 2; NUCLEATED RED BLOOD CELLS 1 /100 WBC; PLATELET ESTIMATE NORMAL
[2020-10-04] MEDS ORDERED: DIGOXIN 500MCG/2ML AMP IV NR (16:30)
[2020-10-04] MEDS ORDERED: SODIUM CHLORIDE 0.9% 250 ML IV NR (16:30)
[2020-10-04] MEDS ORDERED: DIGOXIN 500MCG/2ML AMP IV PRN (17:00)
[2020-10-04] MEDS: PHENYLEPHRINE 100 MG in DEXT 5% WATER 240 ML IV PRN (19:34)
[2020-10-04] MEDS ORDERED: FENTANYL CITRATE/PF 50MCG/ML 2ML VIAL IV NR (19:37)
[2020-10-04] MEDS ORDERED: LIDOCAINE HCL/PF 1% 10 MG/ML 5ML VIAL ONE (19:40)
[2020-10-04] MEDS ORDERED: NOREPINEPHRINE 32 MG in DEXT 5% WATER 218 ML IV PRN (20:00)
[2020-10-04] MEDS ORDERED: VASOPRESSIN 20 UNIT in SODIUM CHLORIDE 0.9% 99 ML IV PRN (20:00)
[2020-10-04] MEDS ORDERED: MIDODRINE HCL 5MG TABLET PO SCH (20:00)
[2020-10-04] MEDS: ATORVASTATIN CALCIUM 10MG TABLET PO SCH (20:46)
[2020-10-04] MEDS ORDERED: AMIODARONE HCL 150 MG in DEXT 5% WATER 100 ML IV NR (21:00)
[2020-10-04 21:23] LABS: HEMATOCRIT. 44.2 % (42.0-52.0); HEMOGLOBIN. 13.9 g/dL (14.0-18.0); MEAN CORPUSCULAR HEMOGLOBIN 26.3 pg (28.0-32.0); MEAN CORPUSCULAR VOLUME 83.7 fL (80.0-94.0); MEAN PLATELET VOLUME 8.4 fl (7.4-10.4); PLATELET 296 x1000/uL (130-400); RED BLOOD CELL COUNT 5.28 mill/uL (4.7-6.1); RED CELL DISTRIBUTION WIDTH 20.5 % (11.6-14.6)
[2020-10-04 21:55] LABS: ATYPICAL LYMPHOCYTES 3; NUCLEATED RED BLOOD CELLS 3 /100 WBC; PLATELET ESTIMATE NORMAL
[2020-10-04 21:58] LABS: PHOSPHORUS 5.1 mg/dL (2.5-4.9)
[2020-10-04] MEDS ORDERED: ALBUMIN HUMAN 25GM/500ML (5%) IV NR (23:00)
[2020-10-05] VITALS (139 sets, daily range): BP systolic 63–174; BP diastolic 19–153
[2020-10-05] MEDS ORDERED: CEFTRIAXONE 1,000 MG in DEXTROSE 5% WATER 50 ML IV NR
[2020-10-05] MEDS ORDERED: MIDODRINE HCL 5MG TABLET PO NR (00:30)
[2020-10-05] MEDS: DILTIAZEM HCL 60MG TABLET PO SCH ×4 (00:30→17:34)
[2020-10-05] MEDS: MEROPENEM 1,000 MG in SODIUM CHLORIDE 0.9% 100 ML IV SCH (00:32)
[2020-10-05] MEDS: METOPROLOL TARTRATE 25MG TABLET PO SCH ×3 (00:32→21:00)
[2020-10-05] MEDS: HYDROCODONE/ACETAMINOPHEN 5/325MG TABLET JT PRN ×4 (01:21→19:52)
[2020-10-05] MEDS: PHENYLEPHRINE 100 MG in DEXT 5% WATER 240 ML IV PRN ×2 (05:45→20:03)
[2020-10-05 06:23] LABS: MEAN CORPUSCULAR HEMOGLOBIN 25.4 pg (28.0-32.0); MEAN CORPUSCULAR VOLUME 82.4 fL (80.0-94.0); MEAN PLATELET VOLUME 8.4 fl (7.4-10.4); PLATELET 266 x1000/uL (130-400); RED BLOOD CELL COUNT 4.74 mill/uL (4.7-6.1); RED CELL DISTRIBUTION WIDTH 20.8 % (11.6-14.6)
[2020-10-05 06:37] LABS: CHLORIDE 101 mEq/L (98-107)
[2020-10-05 06:49] LABS: PHOSPHORUS 4.3 mg/dL (2.5-4.9)
[2020-10-05] MEDS ORDERED: KCL 10MEQ/50ML PREMIX 150 ML IV PRN (08:00)
[2020-10-05] MEDS ORDERED: MAGNESIUM SULFATE 3 GM in DEXT 5% WATER 100 ML IV PRN (08:00)
[2020-10-05] MEDS ORDERED: MAGNESIUM 1 G PREMIX 100 ML IV PRN (08:00)
[2020-10-05] MEDS ORDERED: KCL 10MEQ/50ML PREMIX 200 ML IV PRN (08:00)
[2020-10-05] MEDS ORDERED: MAGNESIUM 2 G PREMIX 50 ML IV PRN (08:00)
[2020-10-05] MEDS: DOCUSATE SODIUM SUGAR FREE 100MG/10ML UDC NG SCH ×2 (08:14→16:28)
[2020-10-05] MEDS: MIDODRINE HCL 5MG TABLET PO SCH ×3 (09:17→16:34)
[2020-10-05] MEDS: PANTOPRAZOLE SODIUM 40 MG/VIAL IV SCH ×2 (09:19→22:08)
[2020-10-05] MEDS: KCL 10MEQ/50ML PREMIX 100 ML IV PRN ×2 (10:02→11:35)
[2020-10-05 10:03] LABS: NUCLEATED RED BLOOD CELLS 1 /100 WBC; PLATELET ESTIMATE NORMAL
[2020-10-05] MEDS ORDERED: DIGOXIN 500MCG/2ML AMP IV NR (10:45)
[2020-10-05] MEDS ORDERED: AMIODARONE HCL 150 MG in DEXT 5% WATER 100 ML IV SCH (11:30)
[2020-10-05] MEDS ORDERED: ALBUMIN HUMAN 25GM/500ML (5%) IV NR (12:00)
[2020-10-05 13:59] LABS: HEMATOCRIT 37.1 % (42.0-52.0); HEMOGLOBIN 11.6 g/dL (14.0-18.0)
[2020-10-05] MEDS: AMIODARONE HCL 200 MG TABLET JT SCH ×2 (16:33→22:03)
[2020-10-05] MEDS ORDERED: AMIODARONE HCL 200 MG TABLET JT SCH (21:00)
[2020-10-05] MEDS: MICAFUNGIN 100 MG in SODIUM CHLORIDE 0.9% 100 ML IV SCH (22:02)
[2020-10-05] MEDS: ATORVASTATIN CALCIUM 10MG TABLET PO SCH (22:03)
[2020-10-05] MEDS: TRAZODONE HCL 50MG TABLET PO PRN (22:03)
[2020-10-06] VITALS (72 sets, daily range): BP systolic 74–172; BP diastolic 16–106
[2020-10-06] MEDS: DILTIAZEM HCL 60MG TABLET PO SCH ×2 (01:08→07:16)
[2020-10-06 06:56] LABS: HEMATOCRIT. 33.9 % (42.0-52.0); HEMOGLOBIN. 10.4 g/dL (14.0-18.0); MEAN CORPUSCULAR HEMOGLOBIN 25.5 pg (28.0-32.0); MEAN CORPUSCULAR VOLUME 83.4 fL (80.0-94.0); MEAN PLATELET VOLUME 8.6 fl (7.4-10.4); PLATELET 253 x1000/uL (130-400); RED BLOOD CELL COUNT 4.06 mill/uL (4.7-6.1); RED CELL DISTRIBUTION WIDTH 20.3 % (11.6-14.6)
[2020-10-06 07:11] LABS: CHLORIDE 104 mEq/L (98-107)
[2020-10-06 08:29] LABS: PLATELET ESTIMATE NORMAL
[2020-10-06] MEDS: MIDODRINE HCL 5MG TABLET PO SCH ×3 (09:00→18:03)
[2020-10-06] MEDS: METOPROLOL TARTRATE 25MG TABLET PO SCH ×2 (09:00→21:00)
[2020-10-06] MEDS: ENOXAPARIN 40MG/0.4ML SYR SUBCUT SCH (09:00)
[2020-10-06] MEDS: AMIODARONE HCL 200 MG TABLET JT SCH ×2 (09:41→21:10)
[2020-10-06] MEDS: DOCUSATE SODIUM SUGAR FREE 100MG/10ML UDC NG SCH ×2 (09:41→17:30)
[2020-10-06] MEDS: PANTOPRAZOLE SODIUM 40 MG/VIAL IV SCH ×2 (09:41→21:10)
[2020-10-06 11:15] LABS: BG BASE EXCESS 0.9 mmol/L (-2.0-2.0); BG CARBOXYHEMOGLOBIN 0.4 % (0.5-1.5); BG DEOXYHEMOGLOBIN 0.8 % (0.0-5.0); BG FRACTION INSPIRED OXYGEN 99.9; BG HCO3 ACT 24.9 mmol/L (22.0-26.0); BG METHEMOGLOBIN 0.3 % (0.0-1.5); BG OXYGEN SATURATION 99.2 % (92.0-98.5); BG OXYHEMOGLOBIN 98.5 % (94.0-97.0); BG PCO2 37.6 mmHg (35.0-45.0); BG PH 7.439 (7.350-7.450); BG PO2 191.2 mmHg (75.0-100.0); BG SAMPLE SITE RIGHT RADIAL; BG TOTAL HEMOGLOBIN 11.4 g/dL (12.0-18.0); BG VENT MODE MASK - NRB
[2020-10-06] MEDS: DILTIAZEM HCL 90MG TABLET PO SCH ×2 (12:00→17:30)
[2020-10-06] MEDS: HYDROCODONE/ACETAMINOPHEN 5/325MG TABLET PO PRN ×3 (12:44→22:39)
[2020-10-06] MEDS: FERROUS SULFATE 325MG TABLET PO SCH ×2 (13:42→17:29)
[2020-10-06] MEDS ORDERED: DIGOXIN 500MCG/2ML AMP IV SCH (18:00)
[2020-10-06] MEDS ORDERED: MORPHINE SULFATE 2 MG/ML CPJ (NOT FOR IM USE) IV NR (18:15)
[2020-10-06] MEDS: ATORVASTATIN CALCIUM 10MG TABLET PO SCH (21:10)
[2020-10-06] MEDS: MICAFUNGIN 100 MG in SODIUM CHLORIDE 0.9% 100 ML IV SCH (21:10)
[2020-10-06] MEDS: SODIUM CHLORIDE 23.4% 77 MEQ in DEXT 10% WATER 1,000 ML IV SCH (23:48)
[2020-10-06] MEDS: MEROPENEM 500 MG in SODIUM CHLORIDE 0.9% 50 ML IV SCH (23:49)
[2020-10-07] VITALS (76 sets, daily range): BP systolic 72–133; BP diastolic 31–75
[2020-10-07] MEDS: HYDROCODONE/ACETAMINOPHEN 5/325MG TABLET PO PRN ×2 (02:57→06:42)
[2020-10-07 05:49] LABS: HEMATOCRIT. 37.6 % (42.0-52.0); HEMOGLOBIN. 11.4 g/dL (14.0-18.0); MEAN CORPUSCULAR HEMOGLOBIN 25.7 pg (28.0-32.0); MEAN CORPUSCULAR VOLUME 84.9 fL (80.0-94.0); PLATELET 244 x1000/uL (130-400); RED BLOOD CELL COUNT 4.43 mill/uL (4.7-6.1); RED CELL DISTRIBUTION WIDTH 20.4 % (11.6-14.6)
[2020-10-07 05:51] LABS: CHLORIDE 106 mEq/L (98-107)
[2020-10-07] MEDS: DILTIAZEM HCL 90MG TABLET PO SCH ×4 (06:41→18:28)
[2020-10-07] MEDS ORDERED: BUPIVACAINE HCL/PF 0.25% (2.5MG/ML) 10ML ONE (06:54)
[2020-10-07] MEDS ORDERED: TETRACAINE/BENZOCAINE/BUTAMBEN 20 GM SPRAY MM ONE (06:55)
[2020-10-07] MEDS ORDERED: SKIN ADHESIVE 0.7 GM EA TOP ONE ×2 (06:55→06:56)
[2020-10-07] MEDS ORDERED: BACITRACIN 15GM TUBE TOP ONE ×2 (06:56→07:43)
[2020-10-07] MEDS ORDERED: BACITRACIN 50,000 UNITS/VIAL ONE ×2 (06:56→07:44)
[2020-10-07 06:59] LABS: PLATELET ESTIMATE NORMAL
[2020-10-07] MEDS ORDERED: BUPIVACAINE HCL/PF 0.5% (5MG/ML) 10ML ONE (07:44)
[2020-10-07] MEDS ORDERED: SODIUM CHLORIDE 0.9% INJ 10ML FLUSH IVF ONE (07:44)
[2020-10-07] MEDS ORDERED: THROMBIN (BOVINE) 5000 UNITS/VIAL TOP ONE (07:44)
[2020-10-07] MEDS: FERROUS SULFATE 325MG TABLET PO SCH ×3 (08:20→18:47)
[2020-10-07] MEDS: METOPROLOL TARTRATE 25MG TABLET PO SCH ×2 (09:00→21:11)
[2020-10-07] MEDS: DOCUSATE SODIUM SUGAR FREE 100MG/10ML UDC NG SCH ×2 (09:00→17:56)
[2020-10-07] MEDS: MEROPENEM 500 MG in SODIUM CHLORIDE 0.9% 50 ML IV SCH ×2 (09:00→16:16)
[2020-10-07] MEDS: PANTOPRAZOLE SODIUM 40 MG/VIAL IV SCH ×2 (09:00→20:56)
[2020-10-07] MEDS: MIDODRINE HCL 5MG TABLET PO SCH ×3 (09:00→17:56)
[2020-10-07] MEDS: AMIODARONE HCL 200 MG TABLET JT SCH ×2 (09:00→20:57)
[2020-10-07] MEDS ORDERED: ONDANSETRON HCL 4MG/2ML INJ ONE (09:45)
[2020-10-07] MEDS ORDERED: PROPOFOL 200MG/20ML VIAL IV ONE (09:48)
[2020-10-07] MEDS ORDERED: ROCURONIUM BROMIDE 10MG/ML VIAL 5ML IV ONE (09:48)
[2020-10-07] MEDS ORDERED: FENTANYL CITRATE/PF 50MCG/ML 2ML VIAL ONE (09:49)
[2020-10-07] MEDS ORDERED: MORPHINE SULFATE/PF 1MG/ML 10ML AMP ONE (09:51)
[2020-10-07] MEDS ORDERED: ETOMIDATE 2MG/ML 10ML VIAL IV ONE (10:14)
[2020-10-07] MEDS ORDERED: ALBUMIN HUMAN 12.5G/250ML (5%) IV ONE (11:32)
[2020-10-07] MEDS ORDERED: NEOSTIGMINE METHYLSULFATE 1MG/ML 10 ML VIAL ONE (11:49)
[2020-10-07] MEDS ORDERED: CALCIUM CHLORIDE 5,000 MG in DEXT 5% WATER 500 ML IV PRN (12:00)
[2020-10-07] MEDS ORDERED: MAGNESIUM 1 G PREMIX 100 ML IV PRN (12:00)
[2020-10-07] MEDS ORDERED: MAGNESIUM 2 G PREMIX 50 ML IV PRN (12:00)
[2020-10-07] MEDS ORDERED: MAGNESIUM SULFATE 3 GM in DEXT 5% WATER 100 ML IV PRN (12:00)
[2020-10-07] MEDS ORDERED: CALCIUM CHLORIDE 3,000 MG in DEXT 5% WATER 250 ML IV PRN (12:00)
[2020-10-07] MEDS ORDERED: SODIUM CHLORIDE 0.9% 500 ML IV PRN (12:00)
[2020-10-07] MEDS ORDERED: ALBUMIN HUMAN 12.5G/250ML (5%) IV PRN (12:00)
[2020-10-07] MEDS ORDERED: ALBUMIN HUMAN 25GM/100ML (25%) IV PRN (12:00)
[2020-10-07] MEDS ORDERED: ONDANSETRON HCL 4MG/2ML INJ IV PRN (12:00)
[2020-10-07 12:39] LABS: BG BASE EXCESS -0.8 mmol/L (-2.0-2.0); BG CARBOXYHEMOGLOBIN 0.1 % (0.5-1.5); BG DEOXYHEMOGLOBIN 3.9 % (0.0-5.0); BG HCO3 ACT 24.8 mmol/L (22.0-26.0); BG METHEMOGLOBIN 0.1 % (0.0-1.5); BG OXYGEN SATURATION 96.1 % (92.0-98.5); BG OXYHEMOGLOBIN 95.9 % (94.0-97.0); BG PCO2 45.5 mmHg (35.0-45.0); BG PH 7.355 (7.350-7.450); BG PO2 92.3 mmHg (75.0-100.0); BG SAMPLE SITE ALINE; BG TOTAL HEMOGLOBIN 10.5 g/dL (12.0-18.0); BG VENT MODE MASK - SIMPLE
[2020-10-07] MEDS ORDERED: AMIODARONE HCL 150 MG in DEXT 5% WATER 100 ML IV SCH (13:00)
[2020-10-07] MEDS: PHENYLEPHRINE 100 MG in DEXT 5% WATER 240 ML IV PRN (14:40)
[2020-10-07 14:44] LABS: HEMATOCRIT. 27.5 % (42.0-52.0); HEMOGLOBIN. 8.6 g/dL (14.0-18.0); MEAN CORPUSCULAR VOLUME 83.2 fL (80.0-94.0); MEAN PLATELET VOLUME 8.1 fl (7.4-10.4); PLATELET 251 x1000/uL (130-400); RED CELL DISTRIBUTION WIDTH 20.7 % (11.6-14.6)
[2020-10-07] MEDS: FAMOTIDINE 20MG/2ML VIAL IV SCH (14:44)
[2020-10-07 14:51] LABS: CHLORIDE 108 mEq/L (98-107)
[2020-10-07] MEDS: IPRATROPIUM/ALBUTEROL 0.5-3(2.5)MG/3ML NEB HHN SCH ×3 (14:52→20:33)
[2020-10-07 14:57] LABS: PHOSPHORUS 3.4 mg/dL (2.5-4.9)
[2020-10-07 14:58] LABS: INR 1.2; PARTIAL THROMBOPLASTIN TIME 46.8 sec (23.4-31.0); PROTHROMBIN TIME 12.6 sec (9.6-11.0)
[2020-10-07 15:25] LABS: PLATELET ESTIMATE NORMAL
[2020-10-07] MEDS: KETOROLAC 30MG/ML VIAL IV PRN ×2 (15:34→20:29)
[2020-10-07 15:46] LABS: HEMATOCRIT. 26.6 % (42.0-52.0); HEMOGLOBIN. 8.3 g/dL (14.0-18.0); MEAN CORPUSCULAR HEMOGLOBIN 25.6 pg (28.0-32.0); MEAN PLATELET VOLUME 8.1 fl (7.4-10.4); PLATELET 247 x1000/uL (130-400); RED BLOOD CELL COUNT 3.24 mill/uL (4.7-6.1); RED CELL DISTRIBUTION WIDTH 20.2 % (11.6-14.6)
[2020-10-07] MEDS: KCL 10MEQ/50ML PREMIX 100 ML IV PRN ×2 (15:55→17:33)
[2020-10-07] MEDS ORDERED: FUROSEMIDE 40MG/4ML VIAL IVP NR (16:00)
[2020-10-07] MEDS ORDERED: BACITRACIN 15GM TUBE TOP SCH (17:00)
[2020-10-07 17:17] LABS: NUCLEATED RED BLOOD CELLS 1 /100 WBC; PLATELET ESTIMATE NORMAL
[2020-10-07] MEDS ORDERED: DEXTROSE 50% WATER 50ML SYRINGE IV ONE (18:04)
[2020-10-07] MEDS: SODIUM CHLORIDE 23.4% 77 MEQ in DEXT 10% WATER 1,000 ML IV SCH (18:10)
[2020-10-07] MEDS: ATORVASTATIN CALCIUM 10MG TABLET PO SCH (20:56)
[2020-10-07] MEDS: MICAFUNGIN 100 MG in SODIUM CHLORIDE 0.9% 100 ML IV SCH (21:12)
[2020-10-08] VITALS (91 sets, daily range): BP systolic 84–127; BP diastolic 33–73
[2020-10-08] MEDS: MEROPENEM 500 MG in SODIUM CHLORIDE 0.9% 50 ML IV SCH ×3 (00:13→16:06)
[2020-10-08 00:14] LABS: HEMATOCRIT. 40.1 % (42.0-52.0); HEMOGLOBIN. 12.2 g/dL (14.0-18.0); MEAN CORPUSCULAR HEMOGLOBIN 26.2 pg (28.0-32.0); MEAN CORPUSCULAR VOLUME 86.3 fL (80.0-94.0); MEAN PLATELET VOLUME 8.6 fl (7.4-10.4); PLATELET 256 x1000/uL (130-400); RED BLOOD CELL COUNT 4.64 mill/uL (4.7-6.1); RED CELL DISTRIBUTION WIDTH 18.4 % (11.6-14.6)
[2020-10-08] MEDS: IPRATROPIUM/ALBUTEROL 0.5-3(2.5)MG/3ML NEB HHN SCH ×6 (00:15→20:21)
[2020-10-08 01:03] LABS: PLATELET ESTIMATE NORMAL
[2020-10-08 02:53] LABS: INR 1.1; PROTHROMBIN TIME 11.9 sec (9.6-11.0)
[2020-10-08] MEDS: DILTIAZEM HCL 90MG TABLET PO SCH ×4 (06:00→17:48)
[2020-10-08 06:36] LABS: HEMATOCRIT. 37.2 % (42.0-52.0); HEMOGLOBIN. 11.8 g/dL (14.0-18.0); MEAN CORPUSCULAR HEMOGLOBIN 26.6 pg (28.0-32.0); MEAN CORPUSCULAR VOLUME 83.9 fL (80.0-94.0); MEAN PLATELET VOLUME 8.4 fl (7.4-10.4); PLATELET 285 x1000/uL (130-400); RED BLOOD CELL COUNT 4.44 mill/uL (4.7-6.1); RED CELL DISTRIBUTION WIDTH 18.3 % (11.6-14.6)
[2020-10-08] MEDS ORDERED: MIDODRINE HCL 5MG TABLET PO SCH (07:15)
[2020-10-08 07:36] LABS: CHLORIDE 109 mEq/L (98-107)
[2020-10-08] MEDS: FERROUS SULFATE 325MG TABLET PO SCH ×3 (07:47→17:48)
[2020-10-08] MEDS: SODIUM CHLORIDE 23.4% 77 MEQ in DEXT 10% WATER 1,000 ML IV SCH (07:48)
[2020-10-08] MEDS: KETOROLAC 30MG/ML VIAL IV PRN (07:48)
[2020-10-08] MEDS: PHENYLEPHRINE 100 MG in DEXT 5% WATER 240 ML IV PRN (09:05)
[2020-10-08] MEDS: FAMOTIDINE 20MG/2ML VIAL IV SCH (09:06)
[2020-10-08] MEDS: DOCUSATE SODIUM SUGAR FREE 100MG/10ML UDC NG SCH ×2 (09:06→17:49)
[2020-10-08] MEDS: PANTOPRAZOLE SODIUM 40 MG/VIAL IV SCH ×2 (09:06→21:27)
[2020-10-08] MEDS: MIDODRINE HCL 5MG TABLET PO SCH ×3 (09:09→17:49)
[2020-10-08] MEDS: METOPROLOL TARTRATE 25MG TABLET PO SCH ×2 (09:09→21:00)
[2020-10-08] MEDS: AMIODARONE HCL 200 MG TABLET JT SCH ×2 (09:12→21:00)
[2020-10-08] MEDS: BLOOD SUGAR DIAGNOSTIC STRIP TEST SCH ×2 (12:22→18:03)
[2020-10-08 12:52] LABS: PLATELET ESTIMATE NORMAL
[2020-10-08] MEDS: HYDROCODONE/ACETAMINOPHEN 5/325MG TABLET PO PRN (16:24)
[2020-10-08] MEDS: MICAFUNGIN 100 MG in SODIUM CHLORIDE 0.9% 100 ML IV SCH (21:13)
[2020-10-08] MEDS: TOTAL PARENTERAL NUTRITION 1,800 ML IV SCH (21:19)
[2020-10-08] MEDS: ATORVASTATIN CALCIUM 10MG TABLET PO SCH (21:27)
[2020-10-09] VITALS (86 sets, daily range): BP systolic 67–141; BP diastolic 37–78
[2020-10-09] MEDS: IPRATROPIUM/ALBUTEROL 0.5-3(2.5)MG/3ML NEB HHN SCH ×6 (00:24→20:40)
[2020-10-09] MEDS: HYDROCODONE/ACETAMINOPHEN 5/325MG TABLET PO PRN ×4 (00:41→23:28)
[2020-10-09] MEDS: MEROPENEM 500 MG in SODIUM CHLORIDE 0.9% 50 ML IV SCH ×3 (00:42→15:38)
[2020-10-09] MEDS: BLOOD SUGAR DIAGNOSTIC STRIP TEST SCH ×4 (00:43→18:28)
[2020-10-09] MEDS: PHENYLEPHRINE 100 MG in DEXT 5% WATER 240 ML IV PRN (03:08)
[2020-10-09 06:50] LABS: HEMOGLOBIN. 10.9 g/dL (14.0-18.0); MEAN CORPUSCULAR VOLUME 84.4 fL (80.0-94.0); MEAN PLATELET VOLUME 8.9 fl (7.4-10.4); PLATELET 356 x1000/uL (130-400); RED BLOOD CELL COUNT 4.03 mill/uL (4.7-6.1); RED CELL DISTRIBUTION WIDTH 18.6 % (11.6-14.6)
[2020-10-09 06:54] LABS: CHLORIDE 110 mEq/L (98-107)
[2020-10-09] MEDS: DILTIAZEM HCL 90MG TABLET PO SCH ×4 (07:15→17:52)
[2020-10-09] MEDS: FERROUS SULFATE 325MG TABLET PO SCH ×3 (08:28→17:55)
[2020-10-09] MEDS: MIDODRINE HCL 5MG TABLET PO SCH ×3 (08:28→17:53)
[2020-10-09] MEDS: AMIODARONE HCL 200 MG TABLET JT SCH ×2 (08:29→21:20)
[2020-10-09] MEDS: PANTOPRAZOLE SODIUM 40 MG/VIAL IV SCH ×2 (08:30→20:30)
[2020-10-09] MEDS: FAMOTIDINE 20MG/2ML VIAL IV SCH (08:31)
[2020-10-09] MEDS: DOCUSATE SODIUM SUGAR FREE 100MG/10ML UDC NG SCH ×2 (08:31→17:52)
[2020-10-09] MEDS: METOPROLOL TARTRATE 25MG TABLET PO SCH ×2 (08:31→20:53)
[2020-10-09 10:41] LABS: PLATELET ESTIMATE NORMAL
[2020-10-09] MEDS: KCL 10MEQ/50ML PREMIX 100 ML IV PRN (11:35)
[2020-10-09] MEDS: MICAFUNGIN 100 MG in SODIUM CHLORIDE 0.9% 100 ML IV SCH (20:30)
[2020-10-09] MEDS: FAT EMULSIONS 500 ML IV SCH (20:32)
[2020-10-09] MEDS: TOTAL PARENTERAL NUTRITION 1,800 ML IV SCH (20:45)
[2020-10-09] MEDS: ATORVASTATIN CALCIUM 10MG TABLET PO SCH (20:53)
[2020-10-10] VITALS (14 sets, daily range): BP systolic 90–120; BP diastolic 47–79
[2020-10-10] MEDS: BLOOD SUGAR DIAGNOSTIC STRIP TEST SCH ×5 (00:14→17:34)
[2020-10-10] MEDS: MEROPENEM 500 MG in SODIUM CHLORIDE 0.9% 50 ML IV SCH ×3 (00:22→15:03)
[2020-10-10] MEDS: IPRATROPIUM/ALBUTEROL 0.5-3(2.5)MG/3ML NEB HHN SCH ×3 (00:50→09:52)
[2020-10-10] MEDS: HYDROCODONE/ACETAMINOPHEN 5/325MG TABLET PO PRN ×2 (05:12→07:45)
[2020-10-10] MEDS: DILTIAZEM HCL 90MG TABLET PO SCH ×4 (06:00→17:32)
[2020-10-10] MEDS: FERROUS SULFATE 325MG TABLET PO SCH ×3 (07:47→18:45)
[2020-10-10 08:46] LABS: CHLORIDE 108 mEq/L (98-107)
[2020-10-10] MEDS: METOPROLOL TARTRATE 25MG TABLET PO SCH ×2 (09:00→21:00)
[2020-10-10] MEDS: MIDODRINE HCL 5MG TABLET PO SCH ×3 (09:21→18:45)
[2020-10-10] MEDS: PANTOPRAZOLE SODIUM 40 MG/VIAL IV SCH ×2 (09:21→20:41)
[2020-10-10 09:22] LABS: HEMATOCRIT. 35.7 % (42.0-52.0); MEAN CORPUSCULAR HEMOGLOBIN 26.4 pg (28.0-32.0); MEAN CORPUSCULAR VOLUME 85.8 fL (80.0-94.0); MEAN PLATELET VOLUME 8.6 fl (7.4-10.4); PLATELET 378 x1000/uL (130-400); RED BLOOD CELL COUNT 4.17 mill/uL (4.7-6.1); RED CELL DISTRIBUTION WIDTH 18.6 % (11.6-14.6)
[2020-10-10] MEDS: FAMOTIDINE 20MG/2ML VIAL IV SCH (09:22)
[2020-10-10] MEDS: AMIODARONE HCL 200 MG TABLET JT SCH ×2 (09:24→21:36)
[2020-10-10] MEDS: ENOXAPARIN 40MG/0.4ML SYR SUBCUT SCH (09:26)
[2020-10-10] MEDS: DOCUSATE SODIUM SUGAR FREE 100MG/10ML UDC NG SCH ×2 (09:32→18:44)
[2020-10-10] MEDS ORDERED: TRAMADOL 50MG TABLET PO PRN (10:45)
[2020-10-10] MEDS: METOCLOPRAMIDE HCL 10MG/2ML VIAL IV SCH ×2 (12:15→18:44)
[2020-10-10 13:46] LABS: PLATELET ESTIMATE NORMAL
[2020-10-10] MEDS: HYDROCODONE/ACETAMINOPHEN 10/325MG TABLET PO PRN ×2 (14:21→19:46)
[2020-10-10] MEDS: DIGOXIN 125MCG TABLET PO SCH (15:00)
[2020-10-10] MEDS ORDERED: LATA2.5D14 EACHEYE (15:49)
[2020-10-10] MEDS ORDERED: PANT40TA51 PO (15:49)
[2020-10-10] MEDS ORDERED: TRAM50TA3 PO (15:49)
[2020-10-10] MEDS ORDERED: CLON0.1T PO (15:49)
[2020-10-10] MEDS ORDERED: QUET100T33 PO (15:49)
[2020-10-10] MEDS ORDERED: RISP1SOL4 PO (15:49)
[2020-10-10] MEDS: IPRATROPIUM BROMIDE (0.02%) 0.5MG/2.5ML NEB HHN SCH ×2 (16:33→20:25)
[2020-10-10] MEDS: TOTAL PARENTERAL NUTRITION 1,800 ML IV SCH (20:44)
[2020-10-10] MEDS: DILTIAZEM HCL 125 MG in DEXT 5% WATER 100 ML IV SCH (20:58)
[2020-10-10] MEDS: ATORVASTATIN CALCIUM 10MG TABLET PO SCH (21:35)
[2020-10-10] MEDS: MICAFUNGIN 100 MG in SODIUM CHLORIDE 0.9% 100 ML IV SCH (21:37)
[2020-10-11] VITALS (11 sets, daily range): BP systolic 92–127; BP diastolic 49–77
[2020-10-11] MEDS: BLOOD SUGAR DIAGNOSTIC STRIP TEST SCH ×4 (00:59→17:18)
[2020-10-11] MEDS ORDERED: DEXTROSE 50% WATER 50ML SYRINGE IV ONE (01:10)
[2020-10-11] MEDS ORDERED: DEXTROSE 50% WATER 50ML SYRINGE IV NR ×2 (01:15→02:00)
[2020-10-11] MEDS: METOCLOPRAMIDE HCL 10MG/2ML VIAL IV SCH ×4 (01:19→17:18)
[2020-10-11] MEDS: MEROPENEM 500 MG in SODIUM CHLORIDE 0.9% 50 ML IV SCH ×3 (01:19→16:48)
[2020-10-11] MEDS ORDERED: DEXT 10% WATER 1,000 ML IV SCH (01:45)
[2020-10-11] MEDS: IPRATROPIUM BROMIDE (0.02%) 0.5MG/2.5ML NEB HHN SCH ×4 (01:50→20:39)
[2020-10-11] MEDS: HYDROCODONE/ACETAMINOPHEN 10/325MG TABLET PO PRN ×4 (04:27→22:50)
[2020-10-11] MEDS: DILTIAZEM HCL 90MG TABLET PO SCH ×4 (06:00→18:00)
[2020-10-11 06:29] LABS: HEMATOCRIT. 38.3 % (42.0-52.0); HEMOGLOBIN. 11.9 g/dL (14.0-18.0); MEAN CORPUSCULAR HEMOGLOBIN 26.6 pg (28.0-32.0); MEAN CORPUSCULAR VOLUME 85.8 fL (80.0-94.0); MEAN PLATELET VOLUME 8.5 fl (7.4-10.4); PLATELET 423 x1000/uL (130-400); RED BLOOD CELL COUNT 4.46 mill/uL (4.7-6.1); RED CELL DISTRIBUTION WIDTH 19.2 % (11.6-14.6)
[2020-10-11 06:40] LABS: CHLORIDE 107 mEq/L (98-107)
[2020-10-11] MEDS: DILTIAZEM HCL 125 MG in DEXT 5% WATER 100 ML IV SCH ×2 (07:06→19:53)
[2020-10-11] MEDS: METOPROLOL TARTRATE 25MG TABLET PO SCH ×2 (09:00→22:06)
[2020-10-11] MEDS: PANTOPRAZOLE SODIUM 40 MG/VIAL IV SCH ×2 (09:15→22:06)
[2020-10-11] MEDS: FERROUS SULFATE 325MG TABLET PO SCH ×3 (09:15→16:47)
[2020-10-11] MEDS: FAMOTIDINE 20MG/2ML VIAL IV SCH (09:15)
[2020-10-11] MEDS: DOCUSATE SODIUM SUGAR FREE 100MG/10ML UDC NG SCH ×2 (09:17→16:47)
[2020-10-11] MEDS: AMIODARONE HCL 200 MG TABLET JT SCH ×2 (09:17→22:03)
[2020-10-11] MEDS: MIDODRINE HCL 5MG TABLET PO SCH ×3 (09:18→16:47)
[2020-10-11] MEDS: ENOXAPARIN 40MG/0.4ML SYR SUBCUT SCH (09:19)
[2020-10-11] MEDS ORDERED: LACTULOSE 20G/30ML UDC JT ONE (11:00)
[2020-10-11 11:17] LABS: ATYPICAL LYMPHOCYTES 1
[2020-10-11 11:18] LABS: PLATELET ESTIMATE SLIGHTLY INCREASED
[2020-10-11] MEDS: POLYETHYLENE GLYCOL 3350 (17GM) 1 DOSE PACK JT SCH (11:49)
[2020-10-11] MEDS: DIGOXIN 125MCG TABLET PO SCH (17:18)
[2020-10-11] MEDS ORDERED: TOTAL PARENTERAL NUTRITION 1,000 ML IV SCH (21:00)
[2020-10-11] MEDS: ATORVASTATIN CALCIUM 10MG TABLET PO SCH (22:03)
[2020-10-11] MEDS: DEXT 10% WATER 1,000 ML IV SCH (22:03)
[2020-10-11] MEDS: TRAZODONE HCL 50MG TABLET PO PRN (22:04)
[2020-10-12] VITALS (13 sets, daily range): BP systolic 98–128; BP diastolic 53–70
[2020-10-12] MEDS: METOCLOPRAMIDE HCL 10MG/2ML VIAL IV SCH ×4 (00:17→17:34)
[2020-10-12] MEDS: MEROPENEM 500 MG in SODIUM CHLORIDE 0.9% 50 ML IV SCH ×3 (00:17→16:22)
[2020-10-12] MEDS: BLOOD SUGAR DIAGNOSTIC STRIP TEST SCH ×4 (00:18→17:35)
[2020-10-12] MEDS: DILTIAZEM HCL 90MG TABLET PO SCH ×4 (00:18→17:35)
[2020-10-12] MEDS: IPRATROPIUM BROMIDE (0.02%) 0.5MG/2.5ML NEB HHN SCH ×4 (01:57→18:31)
[2020-10-12] MEDS: HYDROCODONE/ACETAMINOPHEN 10/325MG TABLET PO PRN (05:00)
[2020-10-12 06:38] LABS: HEMATOCRIT. 37.6 % (42.0-52.0); HEMOGLOBIN. 11.8 g/dL (14.0-18.0); MEAN CORPUSCULAR HEMOGLOBIN 26.7 pg (28.0-32.0); MEAN CORPUSCULAR VOLUME 85.3 fL (80.0-94.0); MEAN PLATELET VOLUME 8.3 fl (7.4-10.4); PLATELET 411 x1000/uL (130-400); RED BLOOD CELL COUNT 4.41 mill/uL (4.7-6.1); RED CELL DISTRIBUTION WIDTH 18.7 % (11.6-14.6)
[2020-10-12 07:34] LABS: CHLORIDE 101 mEq/L (98-107)
[2020-10-12] MEDS: ENOXAPARIN 40MG/0.4ML SYR SUBCUT SCH ×3 (09:00→10:49)
[2020-10-12] MEDS: ERYTHROMYCIN EC 250MG TABLET JT SCH ×3 (09:00→22:00)
[2020-10-12] MEDS: PANTOPRAZOLE SODIUM 40 MG/VIAL IV SCH ×2 (09:27→22:26)
[2020-10-12] MEDS: DOCUSATE SODIUM SUGAR FREE 100MG/10ML UDC NG SCH ×2 (09:27→17:34)
[2020-10-12] MEDS: FAMOTIDINE 20MG/2ML VIAL IV SCH (09:30)
[2020-10-12] MEDS: FERROUS SULFATE 325MG TABLET PO SCH ×3 (09:30→17:34)
[2020-10-12] MEDS: METOPROLOL TARTRATE 25MG TABLET PO SCH ×2 (09:30→22:28)
[2020-10-12] MEDS: POLYETHYLENE GLYCOL 3350 (17GM) 1 DOSE PACK JT SCH (09:31)
[2020-10-12] MEDS: AMIODARONE HCL 200 MG TABLET JT SCH ×2 (09:31→22:26)
[2020-10-12] MEDS: MIDODRINE HCL 5MG TABLET PO SCH ×3 (09:31→17:35)
[2020-10-12] MEDS ORDERED: DILTIAZEM HCL 125 MG in DEXT 5% WATER 100 ML IV SCH (10:39)
[2020-10-12] MEDS: DILTIAZEM HCL 125 MG in DEXT 5% WATER 100 ML IV SCH (10:58)
[2020-10-12 12:20] LABS: PLATELET ESTIMATE INCREASED
[2020-10-12] MEDS: DEXT 10% WATER 1,000 ML IV SCH (16:22)
[2020-10-12] MEDS: DIGOXIN 125MCG TABLET PO SCH (17:34)
[2020-10-12] MEDS: IPRATROPIUM BROMIDE (0.02%) 0.5MG/2.5ML NEB HHN PRN (20:17)
[2020-10-12] MEDS: TOTAL PARENTERAL NUTRITION 1,000 ML IV SCH (22:25)
[2020-10-12] MEDS: ATORVASTATIN CALCIUM 10MG TABLET PO SCH (22:26)
[2020-10-12] MEDS: FAT EMULSIONS 500 ML IV SCH (22:26)
[2020-10-13] VITALS (25 sets, daily range): BP systolic 92–150; BP diastolic 41–91
[2020-10-13] MEDS: METOCLOPRAMIDE HCL 10MG/2ML VIAL IV SCH ×4 (00:24→22:05)
[2020-10-13] MEDS: DILTIAZEM HCL 90MG TABLET PO SCH ×3 (00:25→10:06)
[2020-10-13] MEDS: BLOOD SUGAR DIAGNOSTIC STRIP TEST SCH ×4 (00:25→17:17)
[2020-10-13] MEDS: MEROPENEM 500 MG in SODIUM CHLORIDE 0.9% 50 ML IV SCH ×3 (00:25→17:17)
[2020-10-13] MEDS: DEXTROSE 50% WATER 50ML SYRINGE IV PRN (00:29)
[2020-10-13] MEDS: DEXT 10% WATER 1,000 ML IV SCH ×4 (00:40→23:46)
[2020-10-13] MEDS: LORAZEPAM 0.5MG TABLET PO PRN ×2 (01:07→18:18)
[2020-10-13] MEDS: IPRATROPIUM BROMIDE (0.02%) 0.5MG/2.5ML NEB HHN SCH ×5 (02:13→20:35)
[2020-10-13] MEDS: ERYTHROMYCIN EC 250MG TABLET JT SCH (06:00)
[2020-10-13] MEDS: HYDROCODONE/ACETAMINOPHEN 10/325MG TABLET PO PRN ×2 (07:00→14:10)
[2020-10-13 07:07] LABS: HEMATOCRIT. 34.8 % (42.0-52.0); MEAN CORPUSCULAR HEMOGLOBIN 26.9 pg (28.0-32.0); MEAN CORPUSCULAR VOLUME 84.7 fL (80.0-94.0); MEAN PLATELET VOLUME 8.1 fl (7.4-10.4); PLATELET 437 x1000/uL (130-400); RED BLOOD CELL COUNT 4.11 mill/uL (4.7-6.1)
[2020-10-13 09:13] LABS: CHLORIDE 101 mEq/L (98-107)
[2020-10-13 09:37] LABS: DIGOXIN 0.6 ng/mL (0.9-2.0)
[2020-10-13] MEDS: POLYETHYLENE GLYCOL 3350 (17GM) 1 DOSE PACK JT SCH (10:01)
[2020-10-13] MEDS: PANTOPRAZOLE SODIUM 40 MG/VIAL IV SCH ×2 (10:02→22:05)
[2020-10-13] MEDS: FAMOTIDINE 20MG/2ML VIAL IV SCH (10:02)
[2020-10-13] MEDS: DOCUSATE SODIUM SUGAR FREE 100MG/10ML UDC NG SCH ×2 (10:02→16:55)
[2020-10-13] MEDS: METOPROLOL TARTRATE 25MG TABLET PO SCH (10:07)
[2020-10-13] MEDS: MIDODRINE HCL 5MG TABLET PO SCH ×3 (10:25→16:55)
[2020-10-13] MEDS: FERROUS SULFATE 325MG TABLET PO SCH ×3 (10:25→17:25)
[2020-10-13] MEDS: AMIODARONE HCL 200 MG TABLET JT SCH ×2 (10:27→21:00)
[2020-10-13] MEDS: DILTIAZEM HCL 125 MG in DEXT 5% WATER 100 ML IV SCH (11:16)
[2020-10-13 12:04] LABS: BG BASE EXCESS 2.5 mmol/L (-2.0-2.0); BG CARBOXYHEMOGLOBIN 0.6 % (0.5-1.5); BG DEOXYHEMOGLOBIN 17.4 % (0.0-5.0); BG FRACTION INSPIRED OXYGEN 36; BG HCO3 ACT 26.5 mmol/L (22.0-26.0); BG METHEMOGLOBIN 0.1 % (0.0-1.5); BG OXYGEN SATURATION 82.5 % (92.0-98.5); BG OXYHEMOGLOBIN 81.9 % (94.0-97.0); BG PCO2 38.5 mmHg (35.0-45.0); BG PH 7.455 (7.350-7.450); BG PO2 46.3 mmHg (75.0-100.0); BG SAMPLE SITE RIGHT RADIAL; BG TOTAL HEMOGLOBIN 12.2 g/dL (12.0-18.0); BG VENT MODE NASAL CANNULA
[2020-10-13 12:55] LABS: PLATELET ESTIMATE SLIGHTLY INCREASED
[2020-10-13 13:27] LABS: BG DEOXYHEMOGLOBIN 0.7 % (0.0-5.0); BG FRACTION INSPIRED OXYGEN 99.9; BG HCO3 ACT 26.7 mmol/L (22.0-26.0); BG METHEMOGLOBIN 0.1 % (0.0-1.5); BG OXYGEN SATURATION 99.3 % (92.0-98.5); BG OXYHEMOGLOBIN 99.2 % (94.0-97.0); BG PCO2 41.8 mmHg (35.0-45.0); BG PH 7.423 (7.350-7.450); BG PO2 279.4 mmHg (75.0-100.0); BG SAMPLE SITE RIGHT RADIAL; BG TOTAL HEMOGLOBIN 11.8 g/dL (12.0-18.0); BG VENT MODE MASK - NRB
[2020-10-13] MEDS: IPRATROPIUM BROMIDE (0.02%) 0.5MG/2.5ML NEB HHN PRN (17:12)
[2020-10-13] MEDS: ACETYLCYSTEINE 100MG/ML 10% VIAL 4ML INH SCH ×2 (17:12→20:35)
[2020-10-13] MEDS ORDERED: TOTAL PARENTERAL NUTRITION 1,000 ML IV SCH (21:00)
[2020-10-13] MEDS: ATORVASTATIN CALCIUM 10MG TABLET PO SCH (21:00)
[2020-10-13] MEDS ORDERED: TOTAL PARENTERAL NUTRITION 1,560 ML IV SCH (21:00)
[2020-10-14] VITALS (44 sets, daily range): BP systolic 64–131; BP diastolic 23–75
[2020-10-14] MEDS: IPRATROPIUM BROMIDE (0.02%) 0.5MG/2.5ML NEB HHN SCH ×4 (02:06→21:24)
[2020-10-14] MEDS: METOCLOPRAMIDE HCL 10MG/2ML VIAL IV SCH ×4 (04:00→21:33)
[2020-10-14 05:48] LABS: HEMATOCRIT. 33.5 % (42.0-52.0); HEMOGLOBIN. 10.4 g/dL (14.0-18.0); MEAN CORPUSCULAR HEMOGLOBIN 26.5 pg (28.0-32.0); MEAN CORPUSCULAR VOLUME 85.1 fL (80.0-94.0); MEAN PLATELET VOLUME 8.2 fl (7.4-10.4); PLATELET 426 x1000/uL (130-400); RED BLOOD CELL COUNT 3.94 mill/uL (4.7-6.1)
[2020-10-14 05:59] LABS: CHLORIDE 103 mEq/L (98-107)
[2020-10-14] MEDS ORDERED: DEXTROSE 20% WATER 500 ML IV SCH (06:00)
[2020-10-14] MEDS: BLOOD SUGAR DIAGNOSTIC STRIP TEST SCH ×4 (06:00→18:09)
[2020-10-14] MEDS ORDERED: TOTAL PARENTERAL NUTRITION 1,000 ML IV SCH (07:15)
[2020-10-14] MEDS: TOTAL PARENTERAL NUTRITION 1,000 ML IV SCH (07:34)
[2020-10-14] MEDS: FERROUS SULFATE 325MG TABLET PO SCH ×2 (08:20→13:02)
[2020-10-14] MEDS: POLYETHYLENE GLYCOL 3350 (17GM) 1 DOSE PACK JT SCH (08:59)
[2020-10-14] MEDS: DOCUSATE SODIUM SUGAR FREE 100MG/10ML UDC NG SCH ×2 (09:00→18:13)
[2020-10-14] MEDS: AMIODARONE HCL 200 MG TABLET JT SCH ×2 (09:00→20:54)
[2020-10-14] MEDS: MIDODRINE HCL 5MG TABLET PO SCH ×3 (09:00→18:13)
[2020-10-14] MEDS: FAMOTIDINE 20MG/2ML VIAL IV SCH (09:12)
[2020-10-14] MEDS: PANTOPRAZOLE SODIUM 40 MG/VIAL IV SCH ×2 (09:12→20:53)
[2020-10-14] MEDS: ENOXAPARIN 40MG/0.4ML SYR SUBCUT SCH (09:13)
[2020-10-14] MEDS: DILTIAZEM HCL 125 MG in DEXT 5% WATER 100 ML IV SCH (11:16)
[2020-10-14] MEDS ORDERED: TOTAL PARENTERAL NUTRITION 1,700 ML IV SCH ×2 (12:45→21:00)
[2020-10-14 13:58] LABS: PLATELET ESTIMATE SLIGHTLY INCREASED
[2020-10-14] MEDS: MORPHINE SULFATE 2 MG/ML CPJ (NOT FOR IM USE) IV PRN ×2 (14:38→20:53)
[2020-10-14] MEDS: ERYTHROMYCIN ETHYLSUCCINATE 200MG/5ML 100ML JT SCH ×2 (15:09→22:00)
[2020-10-14] MEDS: FERROUS SULFATE 300MG/5ML UDC JT SCH (18:13)
[2020-10-14] MEDS: FAT EMULSIONS 500 ML IV SCH (20:54)
[2020-10-14] MEDS: ATORVASTATIN CALCIUM 10MG TABLET PO SCH (20:54)
[2020-10-15] VITALS (40 sets, daily range): BP systolic 82–122; BP diastolic 44–81
[2020-10-15] MEDS: IPRATROPIUM BROMIDE (0.02%) 0.5MG/2.5ML NEB HHN SCH ×4 (01:24→20:09)
[2020-10-15] MEDS: MORPHINE SULFATE 2 MG/ML CPJ (NOT FOR IM USE) IV PRN ×4 (03:15→20:36)
[2020-10-15] MEDS: METOCLOPRAMIDE HCL 10MG/2ML VIAL IV SCH ×4 (04:20→21:27)
[2020-10-15 05:56] LABS: HEMATOCRIT. 34.7 % (42.0-52.0); HEMOGLOBIN. 11.4 g/dL (14.0-18.0); MEAN CORPUSCULAR HEMOGLOBIN 27.9 pg (28.0-32.0); MEAN CORPUSCULAR VOLUME 84.8 fL (80.0-94.0); MEAN PLATELET VOLUME 8.4 fl (7.4-10.4); PLATELET 454 x1000/uL (130-400); RED BLOOD CELL COUNT 4.09 mill/uL (4.7-6.1); RED CELL DISTRIBUTION WIDTH 18.7 % (11.6-14.6)
[2020-10-15] MEDS: BLOOD SUGAR DIAGNOSTIC STRIP TEST SCH ×5 (06:00→20:20)
[2020-10-15 06:03] LABS: CHLORIDE 103 mEq/L (98-107)
[2020-10-15] MEDS: ERYTHROMYCIN ETHYLSUCCINATE 200MG/5ML 100ML JT SCH ×3 (07:17→21:27)
[2020-10-15] MEDS: AMIODARONE HCL 200 MG TABLET JT SCH ×2 (08:33→21:27)
[2020-10-15] MEDS: POLYETHYLENE GLYCOL 3350 (17GM) 1 DOSE PACK JT SCH (08:33)
[2020-10-15] MEDS: DOCUSATE SODIUM SUGAR FREE 100MG/10ML UDC NG SCH ×2 (08:33→16:39)
[2020-10-15] MEDS: FERROUS SULFATE 300MG/5ML UDC JT SCH ×3 (08:33→18:31)
[2020-10-15] MEDS: ENOXAPARIN 40MG/0.4ML SYR SUBCUT SCH ×2 (08:34→09:00)
[2020-10-15] MEDS: FAMOTIDINE 20MG/2ML VIAL IV SCH (08:35)
[2020-10-15] MEDS: MIDODRINE HCL 5MG TABLET PO SCH ×3 (08:35→16:39)
[2020-10-15] MEDS: PANTOPRAZOLE SODIUM 40 MG/VIAL IV SCH ×2 (08:35→21:27)
[2020-10-15] MEDS ORDERED: BISACODYL 10MG SUPP PR PRN (11:00)
[2020-10-15] MEDS ORDERED: MAGNESIUM 2 G PREMIX 50 ML IV NR (11:00)
[2020-10-15 11:50] LABS: PLATELET ESTIMATE INCREASED
[2020-10-15] MEDS: MINERAL OIL ENEMA 133ML PR NR ×2 (12:00→15:33)
[2020-10-15] MEDS ORDERED: PHENOL/SODIUM PHENOLATE 1.4% SRPAY 177ML MM PRN (12:00)
[2020-10-15] MEDS ORDERED: DEXT 10% WATER 1,000 ML IV SCH ×2 (19:30→19:45)
[2020-10-15] MEDS: DEXTROSE 50% WATER 50ML SYRINGE IV PRN (20:15)
[2020-10-15] MEDS: TOTAL PARENTERAL NUTRITION 1,000 ML IV SCH (21:00)
[2020-10-15] MEDS: ATORVASTATIN CALCIUM 10MG TABLET PO SCH (21:27)
[2020-10-16] VITALS (52 sets, daily range): BP systolic 79–206; BP diastolic 35–169
[2020-10-16] MEDS: MORPHINE SULFATE 2 MG/ML CPJ (NOT FOR IM USE) IV PRN ×6 (00:22→21:23)
[2020-10-16] MEDS: BLOOD SUGAR DIAGNOSTIC STRIP TEST SCH ×6 (00:46→20:00)
[2020-10-16] MEDS: IPRATROPIUM BROMIDE (0.02%) 0.5MG/2.5ML NEB HHN SCH ×4 (01:29→20:43)
[2020-10-16] MEDS: METOCLOPRAMIDE HCL 10MG/2ML VIAL IV SCH ×4 (03:45→21:10)
[2020-10-16 05:00] LABS: BASOPHILS % 1.1 % (0.0-2.0); EOSINOPHILS % 1.5 % (0.0-5.0); HEMATOCRIT. 38.4 % (42.0-52.0); HEMOGLOBIN. 12.1 g/dL (14.0-18.0); LYMPHOCYTES % 7.3 % (20.0-50.0); MEAN CORPUSCULAR HEMOGLOBIN 26.6 pg (28.0-32.0); MEAN CORPUSCULAR VOLUME 84.2 fL (80.0-94.0); MEAN PLATELET VOLUME 8.1 fl (7.4-10.4); MONOCYTES % 7.7 % (2.0-8.0); NEUTROPHILS % 82.4 % (40.0-76.0); PLATELET 480 x1000/uL (130-400); RED BLOOD CELL COUNT 4.56 mill/uL (4.7-6.1); RED CELL DISTRIBUTION WIDTH 18.9 % (11.6-14.6)
[2020-10-16 05:08] LABS: CHLORIDE 104 mEq/L (98-107)
[2020-10-16] MEDS: ERYTHROMYCIN ETHYLSUCCINATE 200MG/5ML 100ML JT SCH ×3 (05:17→21:10)
[2020-10-16] MEDS ORDERED: LIDOCAINE HCL 1% 20ML VIAL (Pyxis) INJ ONE (07:42)
[2020-10-16] MEDS: FERROUS SULFATE 300MG/5ML UDC JT SCH ×3 (08:25→17:20)
[2020-10-16] MEDS: DOCUSATE SODIUM SUGAR FREE 100MG/10ML UDC NG SCH ×2 (08:25→17:20)
[2020-10-16] MEDS: MIDODRINE HCL 5MG TABLET PO SCH ×3 (08:26→17:21)
[2020-10-16] MEDS: FAMOTIDINE 20MG/2ML VIAL IV SCH (08:27)
[2020-10-16] MEDS: PANTOPRAZOLE SODIUM 40 MG/VIAL IV SCH ×2 (08:27→21:10)
[2020-10-16] MEDS: AMIODARONE HCL 200 MG TABLET JT SCH ×2 (08:27→21:10)
[2020-10-16] MEDS: POLYETHYLENE GLYCOL 3350 (17GM) 1 DOSE PACK JT SCH (09:00)
[2020-10-16] MEDS ORDERED: HYDROCODONE/ACETAMINOPHEN 5/325MG TABLET PO PRN (10:30)
[2020-10-16] MEDS: TOTAL PARENTERAL NUTRITION 1,000 ML IV SCH (11:00)
[2020-10-16] MEDS: FAT EMULSIONS 500 ML IV SCH (21:10)
[2020-10-17] VITALS (37 sets, daily range): BP systolic 95–125; BP diastolic 40–70
[2020-10-17] MEDS: MORPHINE SULFATE 2 MG/ML CPJ (NOT FOR IM USE) IV PRN ×5 (01:42→21:18)
[2020-10-17] MEDS: IPRATROPIUM BROMIDE (0.02%) 0.5MG/2.5ML NEB HHN SCH ×4 (02:08→20:14)
[2020-10-17] MEDS: LORAZEPAM 0.5MG TABLET PO PRN (03:52)
[2020-10-17] MEDS: METOCLOPRAMIDE HCL 10MG/2ML VIAL IV SCH ×4 (03:52→21:49)
[2020-10-17] MEDS: BLOOD SUGAR DIAGNOSTIC STRIP TEST SCH ×7 (04:00→21:41)
[2020-10-17] MEDS: ERYTHROMYCIN ETHYLSUCCINATE 200MG/5ML 100ML JT SCH ×3 (05:15→21:49)
[2020-10-17 05:49] LABS: CHLORIDE 102 mEq/L (98-107)
[2020-10-17 05:50] LABS: HEMATOCRIT. 36.8 % (42.0-52.0); HEMOGLOBIN. 12.1 g/dL (14.0-18.0); MEAN CORPUSCULAR HEMOGLOBIN 27.1 pg (28.0-32.0); MEAN CORPUSCULAR VOLUME 82.7 fL (80.0-94.0); MEAN PLATELET VOLUME 8.3 fl (7.4-10.4); PLATELET 489 x1000/uL (130-400); RED BLOOD CELL COUNT 4.46 mill/uL (4.7-6.1); RED CELL DISTRIBUTION WIDTH 18.9 % (11.6-14.6)
[2020-10-17] MEDS: FAMOTIDINE 20MG/2ML VIAL IV SCH (08:24)
[2020-10-17] MEDS: PANTOPRAZOLE SODIUM 40 MG/VIAL IV SCH ×2 (08:24→21:17)
[2020-10-17] MEDS: DOCUSATE SODIUM SUGAR FREE 100MG/10ML UDC NG SCH ×2 (08:24→17:01)
[2020-10-17] MEDS: POLYETHYLENE GLYCOL 3350 (17GM) 1 DOSE PACK JT SCH (08:25)
[2020-10-17] MEDS: ENOXAPARIN 40MG/0.4ML SYR SUBCUT SCH ×2 (08:25→08:46)
[2020-10-17] MEDS: AMIODARONE HCL 200 MG TABLET JT SCH ×2 (08:25→21:17)
[2020-10-17] MEDS: FERROUS SULFATE 300MG/5ML UDC JT SCH ×3 (08:25→17:21)
[2020-10-17] MEDS: MIDODRINE HCL 5MG TABLET PO SCH ×3 (08:32→17:04)
[2020-10-17 10:36] LABS: PLATELET ESTIMATE INCREASED
[2020-10-17] MEDS: TOTAL PARENTERAL NUTRITION 1,000 ML IV SCH (10:46)
[2020-10-17] MEDS: DEXTROSE 50% WATER 50ML SYRINGE IV PRN ×2 (17:15→19:55)
[2020-10-17] MEDS ORDERED: NON FORMULARY PATIENT HOME MED XX SCH (19:30)
[2020-10-17] MEDS ORDERED: TOTAL PARENTERAL NUTRITION 1,200 ML IV SCH (21:00)
[2020-10-18] VITALS (67 sets, daily range): BP systolic 81–134; BP diastolic 30–82
[2020-10-18] MEDS: BLOOD SUGAR DIAGNOSTIC STRIP TEST SCH ×6 (00:20→20:00)
[2020-10-18] MEDS: DEXTROSE 50% WATER 50ML SYRINGE IV PRN (00:20)
[2020-10-18] MEDS: MORPHINE SULFATE 2 MG/ML CPJ (NOT FOR IM USE) IV PRN ×7 (01:06→21:31)
[2020-10-18] MEDS: IPRATROPIUM BROMIDE (0.02%) 0.5MG/2.5ML NEB HHN SCH ×2 (01:25→20:57)
[2020-10-18] MEDS: METOCLOPRAMIDE HCL 10MG/2ML VIAL IV SCH ×4 (05:17→21:21)
[2020-10-18 05:39] LABS: HEMATOCRIT 34.2 % (42.0-52.0); HEMOGLOBIN 10.8 g/dL (14.0-18.0); MEAN CORPUSCULAR VOLUME 82.4 fL (80.0-94.0); PLATELET 519 x1000/uL (130-400); RED BLOOD CELL COUNT 4.16 mill/uL (4.7-6.1); RED CELL DISTRIBUTION WIDTH 18.8 % (11.6-14.6)
[2020-10-18 05:50] LABS: CHLORIDE 102 mEq/L (98-107)
[2020-10-18] MEDS: ERYTHROMYCIN ETHYLSUCCINATE 200MG/5ML 100ML JT SCH ×3 (06:16→21:21)
[2020-10-18] MEDS: IPRATROPIUM BROMIDE (0.02%) 0.5MG/2.5ML NEB HHN PRN ×2 (08:15→14:16)
[2020-10-18] MEDS: ENOXAPARIN 40MG/0.4ML SYR SUBCUT SCH (08:30)
[2020-10-18] MEDS: POLYETHYLENE GLYCOL 3350 (17GM) 1 DOSE PACK JT SCH (08:31)
[2020-10-18] MEDS: FERROUS SULFATE 300MG/5ML UDC JT SCH ×3 (08:31→17:39)
[2020-10-18] MEDS: FAMOTIDINE 20MG/2ML VIAL IV SCH (08:31)
[2020-10-18] MEDS: DOCUSATE SODIUM SUGAR FREE 100MG/10ML UDC NG SCH ×2 (08:31→16:19)
[2020-10-18] MEDS: AMIODARONE HCL 200 MG TABLET JT SCH ×2 (08:31→20:19)
[2020-10-18] MEDS: PANTOPRAZOLE SODIUM 40 MG/VIAL IV SCH ×2 (08:31→20:19)
[2020-10-18] MEDS: MIDODRINE HCL 5MG TABLET PO SCH ×3 (08:31→16:18)
[2020-10-18] MEDS ORDERED: TOTAL PARENTERAL NUTRITION 1,200 ML IV SCH (21:00)
[2020-10-19] VITALS (71 sets, daily range): BP systolic 87–129; BP diastolic 48–84
[2020-10-19] MEDS: IPRATROPIUM BROMIDE (0.02%) 0.5MG/2.5ML NEB HHN SCH ×5 (02:22→21:08)
[2020-10-19] MEDS: MORPHINE SULFATE 2 MG/ML CPJ (NOT FOR IM USE) IV PRN ×5 (02:41→19:35)
[2020-10-19] MEDS: BLOOD SUGAR DIAGNOSTIC STRIP TEST SCH ×6 (04:00→20:00)
[2020-10-19] MEDS: METOCLOPRAMIDE HCL 10MG/2ML VIAL IV SCH ×2 (04:25→11:03)
[2020-10-19] MEDS: ERYTHROMYCIN ETHYLSUCCINATE 200MG/5ML 100ML JT SCH ×2 (04:25→13:23)
[2020-10-19 07:49] LABS: CHLORIDE 99 mEq/L (98-107)
[2020-10-19 07:50] LABS: HEMATOCRIT. 35.4 % (42.0-52.0); HEMOGLOBIN. 11.5 g/dL (14.0-18.0); MEAN CORPUSCULAR VOLUME 83.2 fL (80.0-94.0); PLATELET 480 x1000/uL (130-400); RED BLOOD CELL COUNT 4.25 mill/uL (4.7-6.1); RED CELL DISTRIBUTION WIDTH 18.1 % (11.6-14.6)
[2020-10-19] MEDS: FERROUS SULFATE 300MG/5ML UDC JT SCH ×3 (08:38→17:56)
[2020-10-19] MEDS: FAMOTIDINE 20MG/2ML VIAL IV SCH (08:38)
[2020-10-19] MEDS: MIDODRINE HCL 5MG TABLET PO SCH ×3 (08:38→17:56)
[2020-10-19] MEDS: AMIODARONE HCL 200 MG TABLET JT SCH ×2 (08:38→21:19)
[2020-10-19] MEDS: ENOXAPARIN 40MG/0.4ML SYR SUBCUT SCH ×2 (08:38→09:00)
[2020-10-19] MEDS: PANTOPRAZOLE SODIUM 40 MG/VIAL IV SCH ×2 (08:38→21:19)
[2020-10-19] MEDS: POLYETHYLENE GLYCOL 3350 (17GM) 1 DOSE PACK JT SCH (09:00)
[2020-10-19] MEDS: DOCUSATE SODIUM SUGAR FREE 100MG/10ML UDC NG SCH ×2 (09:00→17:00)
[2020-10-19 10:58] LABS: PLATELET ESTIMATE INCREASED
[2020-10-19] MEDS ORDERED: LIDOCAINE HCL/EPINEPHRINE 1%-EPI 1:100,000 20 ML VIAL INFIL ONE (13:30)
[2020-10-19] MEDS ORDERED: LIDOCAINE HCL 1% 20ML VIAL (Pyxis) INJ INFIL ONE (14:00)
[2020-10-19] MEDS: FAT EMULSIONS 500 ML IV SCH (21:19)
[2020-10-19] MEDS: METOPROLOL TARTRATE 25MG TABLET PO SCH (21:20)
[2020-10-19] MEDS: TOTAL PARENTERAL NUTRITION 1,600 ML IV SCH (21:21)
[2020-10-20] VITALS (91 sets, daily range): BP systolic 69–131; BP diastolic 34–75
[2020-10-20] MEDS: MORPHINE SULFATE 2 MG/ML CPJ (NOT FOR IM USE) IV PRN ×4 (00:16→22:52)
[2020-10-20] MEDS: BLOOD SUGAR DIAGNOSTIC STRIP TEST SCH ×7 (00:17→23:48)
[2020-10-20] MEDS: IPRATROPIUM BROMIDE (0.02%) 0.5MG/2.5ML NEB HHN SCH ×4 (01:07→20:29)
[2020-10-20 02:28] LABS: CHLORIDE 99 mEq/L (98-107)
[2020-10-20 02:29] LABS: HEMATOCRIT. 34.3 % (42.0-52.0); HEMOGLOBIN. 11.4 g/dL (14.0-18.0); MEAN CORPUSCULAR HEMOGLOBIN 27.7 pg (28.0-32.0); MEAN CORPUSCULAR VOLUME 83.3 fL (80.0-94.0); MEAN PLATELET VOLUME 7.8 fl (7.4-10.4); PLATELET 477 x1000/uL (130-400); RED BLOOD CELL COUNT 4.12 mill/uL (4.7-6.1); RED CELL DISTRIBUTION WIDTH 17.9 % (11.6-14.6)
[2020-10-20 02:34] LABS: PHOSPHORUS 3.5 mg/dL (2.5-4.9)
[2020-10-20] MEDS ORDERED: DIGOXIN 500MCG/2ML AMP IV NR (04:30)
[2020-10-20] MEDS: DIGOXIN 500MCG/2ML AMP IV PRN ×2 (04:38→06:38)
[2020-10-20] MEDS ORDERED: MAGNESIUM 2 G PREMIX 50 ML IV NR (05:00)
[2020-10-20 08:12] LABS: PLATELET ESTIMATE SLIGHTLY INCREASED
[2020-10-20] MEDS: DOCUSATE SODIUM SUGAR FREE 100MG/10ML UDC NG SCH ×3 (09:00→16:40)
[2020-10-20] MEDS: POLYETHYLENE GLYCOL 3350 (17GM) 1 DOSE PACK JT SCH (09:00)
[2020-10-20] MEDS: FERROUS SULFATE 300MG/5ML UDC JT SCH ×3 (09:09→17:17)
[2020-10-20] MEDS: MIDODRINE HCL 5MG TABLET PO SCH ×3 (09:10→17:17)
[2020-10-20] MEDS: AMIODARONE HCL 200 MG TABLET JT SCH ×2 (09:10→21:00)
[2020-10-20] MEDS: ENOXAPARIN 40MG/0.4ML SYR SUBCUT SCH (09:10)
[2020-10-20] MEDS: PANTOPRAZOLE SODIUM 40 MG/VIAL IV SCH ×2 (09:10→21:22)
[2020-10-20] MEDS: FAMOTIDINE 20MG/2ML VIAL IV SCH (09:10)
[2020-10-20] MEDS ORDERED: PHENYLEPHRINE 50 MG in DEXT 5% WATER 245 ML IV PRN (10:30)
[2020-10-20] MEDS ORDERED: SODIUM CHLORIDE 0.9% 1000ML BAG (SEPSIS BOLUS) IV NR (10:30)
[2020-10-20] MEDS: DILTIAZEM HCL 125 MG in DEXT 5% WATER 100 ML IV PRN (11:48)
[2020-10-20] MEDS: PHENYLEPHRINE 100 MG in DEXT 5% WATER 250 ML IV PRN (11:54)
[2020-10-20] MEDS: TOTAL PARENTERAL NUTRITION 1,600 ML IV SCH (21:25)
[2020-10-20] MEDS ORDERED: AMIODARONE HCL 900 MG in DEXT 5% WATER 482 ML IV PRN (22:45)
[2020-10-21] VITALS (52 sets, daily range): BP systolic 64–237; BP diastolic 32–130
[2020-10-21] MEDS: BLOOD SUGAR DIAGNOSTIC STRIP TEST SCH ×6 (03:38→23:25)
[2020-10-21 05:55] LABS: HEMATOCRIT. 34.8 % (42.0-52.0); HEMOGLOBIN. 10.9 g/dL (14.0-18.0); MEAN CORPUSCULAR HEMOGLOBIN 25.9 pg (28.0-32.0); MEAN CORPUSCULAR VOLUME 82.3 fL (80.0-94.0); MEAN PLATELET VOLUME 7.7 fl (7.4-10.4); PLATELET 499 x1000/uL (130-400); RED BLOOD CELL COUNT 4.23 mill/uL (4.7-6.1); RED CELL DISTRIBUTION WIDTH 17.9 % (11.6-14.6)
[2020-10-21 06:07] LABS: CHLORIDE 98 mEq/L (98-107)
[2020-10-21 06:56] LABS: PLATELET ESTIMATE INCREASED
[2020-10-21] MEDS: FERROUS SULFATE 300MG/5ML UDC JT SCH ×3 (08:00→17:35)
[2020-10-21] MEDS: DOCUSATE SODIUM SUGAR FREE 100MG/10ML UDC NG SCH ×2 (08:01→16:06)
[2020-10-21] MEDS: MIDODRINE HCL 5MG TABLET PO SCH ×3 (08:01→16:06)
[2020-10-21] MEDS: AMIODARONE HCL 200 MG TABLET JT SCH ×2 (08:01→20:59)
[2020-10-21] MEDS: POLYETHYLENE GLYCOL 3350 (17GM) 1 DOSE PACK JT SCH (08:01)
[2020-10-21] MEDS: IPRATROPIUM BROMIDE (0.02%) 0.5MG/2.5ML NEB HHN SCH ×3 (08:28→20:06)
[2020-10-21] MEDS: ENOXAPARIN 40MG/0.4ML SYR SUBCUT SCH (09:00)
[2020-10-21] MEDS: FAMOTIDINE 20MG/2ML VIAL IV SCH (09:00)
[2020-10-21] MEDS: DILTIAZEM HCL 125 MG in DEXT 5% WATER 100 ML IV PRN (10:15)
[2020-10-21] MEDS: MORPHINE SULFATE 2 MG/ML CPJ (NOT FOR IM USE) IV PRN ×2 (12:06→20:47)
[2020-10-21] MEDS: TOTAL PARENTERAL NUTRITION 1,600 ML IV SCH (20:48)
[2020-10-21] MEDS: FAT EMULSIONS 500 ML IV SCH (20:50)
[2020-10-21] MEDS: DEXTROSE 50% WATER 50ML SYRINGE IV PRN (23:12)
[2020-10-22] VITALS (59 sets, daily range): BP systolic 83–132; BP diastolic 22–100
[2020-10-22] MEDS: MORPHINE SULFATE 2 MG/ML CPJ (NOT FOR IM USE) IV PRN ×4 (01:21→21:36)
[2020-10-22] MEDS: IPRATROPIUM BROMIDE (0.02%) 0.5MG/2.5ML NEB HHN SCH ×4 (01:56→21:15)
[2020-10-22] MEDS: BLOOD SUGAR DIAGNOSTIC STRIP TEST SCH ×5 (04:00→20:00)
[2020-10-22 05:50] LABS: BASOPHILS % 1.5 % (0.0-2.0); EOSINOPHILS % 3.5 % (0.0-5.0); HEMATOCRIT. 33.5 % (42.0-52.0); HEMOGLOBIN. 10.7 g/dL (14.0-18.0); LYMPHOCYTES % 11.6 % (20.0-50.0); MEAN CORPUSCULAR HEMOGLOBIN 26.4 pg (28.0-32.0); MEAN CORPUSCULAR VOLUME 82.5 fL (80.0-94.0); MEAN PLATELET VOLUME 8.1 fl (7.4-10.4); MONOCYTES % 14.9 % (2.0-8.0); NEUTROPHILS % 68.5 % (40.0-76.0); PLATELET 463 x1000/uL (130-400); RED BLOOD CELL COUNT 4.06 mill/uL (4.7-6.1); RED CELL DISTRIBUTION WIDTH 18.1 % (11.6-14.6)
[2020-10-22 05:51] LABS: CHLORIDE 96 mEq/L (98-107)
[2020-10-22 05:56] LABS: INR 1.2; PARTIAL THROMBOPLASTIN TIME 32.9 sec (23.4-31.0)
[2020-10-22] MEDS: FERROUS SULFATE 300MG/5ML UDC JT SCH ×3 (08:44→18:20)
[2020-10-22] MEDS: AMIODARONE HCL 200 MG TABLET JT SCH ×2 (08:44→21:00)
[2020-10-22] MEDS: FAMOTIDINE 20MG/2ML VIAL IV SCH (08:44)
[2020-10-22] MEDS: ENOXAPARIN 40MG/0.4ML SYR SUBCUT SCH (08:45)
[2020-10-22] MEDS: MIDODRINE HCL 5MG TABLET PO SCH ×3 (08:46→17:00)
[2020-10-22] MEDS: POLYETHYLENE GLYCOL 3350 (17GM) 1 DOSE PACK JT SCH (09:01)
[2020-10-22] MEDS: DOCUSATE SODIUM SUGAR FREE 100MG/10ML UDC NG SCH ×2 (09:01→17:00)
[2020-10-22] MEDS: TOTAL PARENTERAL NUTRITION 1,600 ML IV SCH (21:34)
[2020-10-22] MEDS: DILTIAZEM HCL 125 MG in DEXT 5% WATER 100 ML IV PRN (21:36)
[2020-10-23] VITALS (83 sets, daily range): BP systolic 48–176; BP diastolic 30–101
[2020-10-23] MEDS: BLOOD SUGAR DIAGNOSTIC STRIP TEST SCH ×6 (00:31→20:00)
[2020-10-23] MEDS: IPRATROPIUM BROMIDE (0.02%) 0.5MG/2.5ML NEB HHN SCH ×4 (02:20→20:53)
[2020-10-23] MEDS: MORPHINE SULFATE 2 MG/ML CPJ (NOT FOR IM USE) IV PRN ×3 (04:15→12:41)
[2020-10-23] MEDS: PHENYLEPHRINE 100 MG in DEXT 5% WATER 250 ML IV PRN ×2 (04:17→12:48)
[2020-10-23] MEDS: FERROUS SULFATE 300MG/5ML UDC JT SCH ×3 (08:20→18:04)
[2020-10-23] MEDS: POLYETHYLENE GLYCOL 3350 (17GM) 1 DOSE PACK JT SCH (08:42)
[2020-10-23] MEDS: AMIODARONE HCL 200 MG TABLET JT SCH ×2 (08:42→21:39)
[2020-10-23] MEDS: DOCUSATE SODIUM SUGAR FREE 100MG/10ML UDC NG SCH ×2 (08:43→17:00)
[2020-10-23] MEDS: MIDODRINE HCL 5MG TABLET PO SCH ×3 (08:43→18:00)
[2020-10-23] MEDS ORDERED: IOHEXOL-300 50 ML BOTTLE IV ONE (09:37)
[2020-10-23] MEDS ORDERED: LIDOCAINE HCL 2% JELLY 5ML ONE (09:39)
[2020-10-23] MEDS ORDERED: LIDOCAINE HCL 1% 20ML VIAL (Pyxis) INJ ONE (09:39)
[2020-10-23] MEDS: FAMOTIDINE 20MG/2ML VIAL IV SCH (09:50)
[2020-10-23 12:19] LABS: HEMATOCRIT. 35.6 % (42.0-52.0); HEMOGLOBIN. 11.4 g/dL (14.0-18.0); MEAN CORPUSCULAR HEMOGLOBIN 26.5 pg (28.0-32.0); MEAN CORPUSCULAR VOLUME 83.2 fL (80.0-94.0); MEAN PLATELET VOLUME 7.8 fl (7.4-10.4); PLATELET 467 x1000/uL (130-400); RED BLOOD CELL COUNT 4.28 mill/uL (4.7-6.1); RED CELL DISTRIBUTION WIDTH 17.7 % (11.6-14.6)
[2020-10-23 12:22] LABS: CHLORIDE 96 mEq/L (98-107)
[2020-10-23 12:49] LABS: PLATELET ESTIMATE SLIGHTLY INCREASED
[2020-10-23] MEDS: FAT EMULSIONS 500 ML IV SCH (21:38)
[2020-10-23] MEDS: TOTAL PARENTERAL NUTRITION 1,600 ML IV SCH (21:40)
[2020-10-24] VITALS (93 sets, daily range): BP systolic 70–152; BP diastolic 35–90
[2020-10-24] MEDS: IPRATROPIUM BROMIDE (0.02%) 0.5MG/2.5ML NEB HHN SCH ×4 (02:17→19:55)
[2020-10-24] MEDS: MORPHINE SULFATE 2 MG/ML CPJ (NOT FOR IM USE) IV PRN ×5 (04:14→23:59)
[2020-10-24] MEDS: BLOOD SUGAR DIAGNOSTIC STRIP TEST SCH ×5 (04:15→16:00)
[2020-10-24 06:17] LABS: HEMATOCRIT. 33.9 % (42.0-52.0); HEMOGLOBIN. 10.8 g/dL (14.0-18.0); MEAN CORPUSCULAR HEMOGLOBIN 26.3 pg (28.0-32.0); MEAN CORPUSCULAR VOLUME 82.5 fL (80.0-94.0); MEAN PLATELET VOLUME 8.8 fl (7.4-10.4); PLATELET 481 x1000/uL (130-400); RED BLOOD CELL COUNT 4.11 mill/uL (4.7-6.1); RED CELL DISTRIBUTION WIDTH 18.2 % (11.6-14.6)
[2020-10-24 06:25] LABS: CHLORIDE 93 mEq/L (98-107)
[2020-10-24] MEDS: PHENYLEPHRINE 100 MG in DEXT 5% WATER 250 ML IV PRN ×2 (08:02→18:45)
[2020-10-24 08:42] LABS: PHOSPHORUS 3.4 mg/dL (2.5-4.9)
[2020-10-24] MEDS: FERROUS SULFATE 300MG/5ML UDC JT SCH ×3 (09:30→16:52)
[2020-10-24] MEDS: MIDODRINE HCL 5MG TABLET PO SCH ×3 (09:31→16:52)
[2020-10-24] MEDS: DOCUSATE SODIUM SUGAR FREE 100MG/10ML UDC NG SCH ×2 (09:31→16:13)
[2020-10-24] MEDS: FAMOTIDINE 20MG/2ML VIAL IV SCH (09:31)
[2020-10-24] MEDS: AMIODARONE HCL 200 MG TABLET JT SCH ×2 (09:31→21:08)
[2020-10-24] MEDS: POLYETHYLENE GLYCOL 3350 (17GM) 1 DOSE PACK JT SCH (09:32)
[2020-10-24] MEDS: ENOXAPARIN 40MG/0.4ML SYR SUBCUT SCH (09:34)
[2020-10-24 11:01] LABS: PLATELET ESTIMATE SLIGHTLY INCREASED
[2020-10-24] MEDS: DILTIAZEM HCL 125 MG in DEXT 5% WATER 100 ML IV PRN (12:21)
[2020-10-24] MEDS: TOTAL PARENTERAL NUTRITION 1,600 ML IV SCH (21:13)
[2020-10-25] VITALS (92 sets, daily range): BP systolic 85–187; BP diastolic 31–105
[2020-10-25] MEDS: BLOOD SUGAR DIAGNOSTIC STRIP TEST SCH ×4 (00:28→17:17)
[2020-10-25] MEDS: IPRATROPIUM BROMIDE (0.02%) 0.5MG/2.5ML NEB HHN SCH ×4 (01:54→20:25)
[2020-10-25 06:03] LABS: HEMATOCRIT. 36.9 % (42.0-52.0); HEMOGLOBIN. 11.7 g/dL (14.0-18.0); MEAN CORPUSCULAR HEMOGLOBIN 26.3 pg (28.0-32.0); MEAN CORPUSCULAR VOLUME 82.9 fL (80.0-94.0); MEAN PLATELET VOLUME 7.6 fl (7.4-10.4); PLATELET 465 x1000/uL (130-400); RED BLOOD CELL COUNT 4.44 mill/uL (4.7-6.1); RED CELL DISTRIBUTION WIDTH 18.2 % (11.6-14.6)
[2020-10-25 06:10] LABS: CHLORIDE 96 mEq/L (98-107)
[2020-10-25] MEDS: DOCUSATE SODIUM SUGAR FREE 100MG/10ML UDC NG SCH ×2 (08:42→17:16)
[2020-10-25] MEDS: FAMOTIDINE 20MG/2ML VIAL IV SCH (08:43)
[2020-10-25] MEDS: FERROUS SULFATE 300MG/5ML UDC JT SCH ×3 (08:43→17:15)
[2020-10-25] MEDS: POLYETHYLENE GLYCOL 3350 (17GM) 1 DOSE PACK JT SCH (08:43)
[2020-10-25] MEDS: AMIODARONE HCL 200 MG TABLET JT SCH ×2 (08:43→20:55)
[2020-10-25] MEDS: ENOXAPARIN 40MG/0.4ML SYR SUBCUT SCH (08:43)
[2020-10-25] MEDS: MIDODRINE HCL 5MG TABLET PO SCH ×3 (08:43→17:15)
[2020-10-25 10:21] LABS: PLATELET ESTIMATE SLIGHTLY INCREASED
[2020-10-25] MEDS: MORPHINE SULFATE 2 MG/ML CPJ (NOT FOR IM USE) IV PRN (13:35)
[2020-10-25] MEDS: TOTAL PARENTERAL NUTRITION 1,600 ML IV SCH (21:06)
[2020-10-26] VITALS (95 sets, daily range): BP systolic 81–142; BP diastolic 42–85
[2020-10-26] MEDS: MORPHINE SULFATE 2 MG/ML CPJ (NOT FOR IM USE) IV PRN ×4 (00:36→17:25)
[2020-10-26] MEDS: PHENYLEPHRINE 100 MG in DEXT 5% WATER 250 ML IV PRN (00:37)
[2020-10-26] MEDS: BLOOD SUGAR DIAGNOSTIC STRIP TEST SCH ×5 (00:38→23:35)
[2020-10-26] MEDS: IPRATROPIUM BROMIDE (0.02%) 0.5MG/2.5ML NEB HHN SCH ×4 (02:13→20:51)
[2020-10-26] MEDS: DILTIAZEM HCL 125 MG in DEXT 5% WATER 100 ML IV PRN (04:19)
[2020-10-26 05:26] LABS: HEMATOCRIT. 34.4 % (42.0-52.0); HEMOGLOBIN. 10.9 g/dL (14.0-18.0); MEAN CORPUSCULAR HEMOGLOBIN 26.2 pg (28.0-32.0); MEAN CORPUSCULAR VOLUME 82.5 fL (80.0-94.0); MEAN PLATELET VOLUME 7.4 fl (7.4-10.4); PLATELET 410 x1000/uL (130-400); RED BLOOD CELL COUNT 4.17 mill/uL (4.7-6.1); RED CELL DISTRIBUTION WIDTH 18.1 % (11.6-14.6)
[2020-10-26 05:27] LABS: CHLORIDE 96 mEq/L (98-107)
[2020-10-26] MEDS: ENOXAPARIN 40MG/0.4ML SYR SUBCUT SCH (08:04)
[2020-10-26] MEDS: FAMOTIDINE 20MG/2ML VIAL IV SCH (08:05)
[2020-10-26] MEDS: FERROUS SULFATE 300MG/5ML UDC JT SCH ×3 (08:05→17:25)
[2020-10-26] MEDS: MIDODRINE HCL 5MG TABLET PO SCH ×3 (08:05→21:28)
[2020-10-26] MEDS: AMIODARONE HCL 200 MG TABLET JT SCH ×2 (08:05→21:29)
[2020-10-26] MEDS: DOCUSATE SODIUM SUGAR FREE 100MG/10ML UDC NG SCH ×2 (08:07→17:00)
[2020-10-26] MEDS: POLYETHYLENE GLYCOL 3350 (17GM) 1 DOSE PACK JT SCH (08:07)
[2020-10-26 11:10] LABS: PLATELET ESTIMATE SLIGHTLY INCREASED
[2020-10-26] MEDS: DILTIAZEM HCL 60MG TABLET PO SCH ×2 (12:34→17:25)
[2020-10-26] MEDS: TOTAL PARENTERAL NUTRITION 1,600 ML IV SCH (21:27)
[2020-10-26] MEDS: FAT EMULSIONS 500 ML IV SCH (21:54)
[2020-10-27] VITALS (79 sets, daily range): BP systolic 88–131; BP diastolic 43–80
[2020-10-27] MEDS ORDERED: VANCOMYCIN 1 G PREMIX 200 ML IV SCH
[2020-10-27] MEDS: DILTIAZEM HCL 60MG TABLET PO SCH ×2 (01:02→07:39)
[2020-10-27] MEDS: MORPHINE SULFATE 2 MG/ML CPJ (NOT FOR IM USE) IV PRN ×3 (01:13→14:55)
[2020-10-27] MEDS: IPRATROPIUM BROMIDE (0.02%) 0.5MG/2.5ML NEB HHN SCH ×4 (01:47→20:49)
[2020-10-27 05:39] LABS: HEMATOCRIT. 35.5 % (42.0-52.0); HEMOGLOBIN. 11.2 g/dL (14.0-18.0); MEAN CORPUSCULAR HEMOGLOBIN 26.7 pg (28.0-32.0); MEAN CORPUSCULAR VOLUME 84.4 fL (80.0-94.0); PLATELET 406 x1000/uL (130-400); RED CELL DISTRIBUTION WIDTH 18.5 % (11.6-14.6)
[2020-10-27 05:45] LABS: CHLORIDE 95 mEq/L (98-107)
[2020-10-27] MEDS: BLOOD SUGAR DIAGNOSTIC STRIP TEST SCH ×3 (06:00→18:00)
[2020-10-27 07:30] LABS: NUCLEATED RED BLOOD CELLS 2 /100 WBC; PLATELET ESTIMATE NORMAL
[2020-10-27] MEDS: MIDODRINE HCL 5MG TABLET PO SCH ×3 (07:40→21:04)
[2020-10-27] MEDS: AMIODARONE HCL 200 MG TABLET JT SCH ×2 (08:36→21:03)
[2020-10-27] MEDS: ENOXAPARIN 40MG/0.4ML SYR SUBCUT SCH ×2 (08:36→09:00)
[2020-10-27] MEDS: FAMOTIDINE 20MG/2ML VIAL IV SCH (08:36)
[2020-10-27] MEDS: FERROUS SULFATE 300MG/5ML UDC JT SCH ×3 (08:36→18:48)
[2020-10-27] MEDS: POLYETHYLENE GLYCOL 3350 (17GM) 1 DOSE PACK JT SCH (08:37)
[2020-10-27] MEDS: DOCUSATE SODIUM SUGAR FREE 100MG/10ML UDC NG SCH ×2 (08:37→17:00)
[2020-10-27] MEDS: DILTIAZEM HCL 90MG TABLET PO SCH ×2 (11:01→18:49)
[2020-10-27] MEDS: HYDROCODONE/ACETAMINOPHEN 5/325MG TABLET JT PRN (18:48)
[2020-10-27] MEDS: TOTAL PARENTERAL NUTRITION 1,600 ML IV SCH (21:03)
[2020-10-28] VITALS (12 sets, daily range): BP systolic 98–121; BP diastolic 49–69
[2020-10-28] MEDS: IPRATROPIUM BROMIDE (0.02%) 0.5MG/2.5ML NEB HHN SCH ×4 (02:25→20:30)
[2020-10-28] MEDS: BLOOD SUGAR DIAGNOSTIC STRIP TEST SCH ×5 (06:00→17:10)
[2020-10-28] MEDS: DILTIAZEM HCL 90MG TABLET PO SCH ×4 (06:22→17:13)
[2020-10-28] MEDS: MIDODRINE HCL 5MG TABLET PO SCH ×3 (06:22→21:15)
[2020-10-28] MEDS: HYDROCODONE/ACETAMINOPHEN 5/325MG TABLET JT PRN ×3 (06:23→19:16)
[2020-10-28 07:04] LABS: HEMATOCRIT. 33.6 % (42.0-52.0); HEMOGLOBIN. 10.9 g/dL (14.0-18.0); MEAN CORPUSCULAR HEMOGLOBIN 27.1 pg (28.0-32.0); MEAN CORPUSCULAR VOLUME 83.6 fL (80.0-94.0); PLATELET 390 x1000/uL (130-400); RED BLOOD CELL COUNT 4.02 mill/uL (4.7-6.1); RED CELL DISTRIBUTION WIDTH 17.9 % (11.6-14.6)
[2020-10-28 07:52] LABS: CHLORIDE 94 mEq/L (98-107)
[2020-10-28] MEDS: AMIODARONE HCL 200 MG TABLET JT SCH ×2 (09:56→21:15)
[2020-10-28] MEDS: FERROUS SULFATE 300MG/5ML UDC JT SCH ×3 (09:56→16:46)
[2020-10-28] MEDS: FAMOTIDINE 20MG/2ML VIAL IV SCH (09:57)
[2020-10-28] MEDS: POLYETHYLENE GLYCOL 3350 (17GM) 1 DOSE PACK JT SCH (09:57)
[2020-10-28] MEDS: DOCUSATE SODIUM SUGAR FREE 100MG/10ML UDC NG SCH ×2 (09:57→16:46)
[2020-10-28] MEDS: ENOXAPARIN 40MG/0.4ML SYR SUBCUT NR ×2 (16:46→17:22)
[2020-10-28] MEDS ORDERED: HYDROCODONE/ACETAMINOPHEN 10/325MG TABLET PO PRN (19:30)
[2020-10-28] MEDS: FAT EMULSIONS 500 ML IV SCH (20:55)
[2020-10-28] MEDS: TOTAL PARENTERAL NUTRITION 1,600 ML IV SCH (20:56)
[2020-10-28] MEDS: METOPROLOL TARTRATE 25MG TABLET PO SCH (21:00)
[2020-10-28] MEDS ORDERED: FAT EMULSIONS 500 ML IV SCH (21:00)
[2020-10-28 22:25] LABS: PLATELET ESTIMATE NORMAL
[2020-10-29] VITALS (12 sets, daily range): BP systolic 93–122; BP diastolic 53–75
[2020-10-29] MEDS: DILTIAZEM HCL 90MG TABLET PO SCH ×3 (00:08→15:21)
[2020-10-29] MEDS: IPRATROPIUM BROMIDE (0.02%) 0.5MG/2.5ML NEB HHN SCH ×3 (01:25→21:22)
[2020-10-29] MEDS: MIDODRINE HCL 5MG TABLET PO SCH ×4 (05:41→20:46)
[2020-10-29] MEDS: BLOOD SUGAR DIAGNOSTIC STRIP TEST SCH ×4 (05:42→18:14)
[2020-10-29] MEDS: METOPROLOL TARTRATE 25MG TABLET PO SCH ×2 (09:00→21:44)
[2020-10-29] MEDS: ENOXAPARIN 40MG/0.4ML SYR SUBCUT SCH ×2 (09:00→18:17)
[2020-10-29] MEDS: POLYETHYLENE GLYCOL 3350 (17GM) 1 DOSE PACK JT SCH (09:00)
[2020-10-29] MEDS: FERROUS SULFATE 300MG/5ML UDC JT SCH ×4 (09:03→18:17)
[2020-10-29] MEDS: AMIODARONE HCL 200 MG TABLET JT SCH ×2 (09:03→21:44)
[2020-10-29] MEDS: FAMOTIDINE 20MG/2ML VIAL IV SCH (09:03)
[2020-10-29] MEDS: DOCUSATE SODIUM SUGAR FREE 100MG/10ML UDC NG SCH ×2 (09:03→17:00)
[2020-10-29] MEDS ORDERED: DIGOXIN 500MCG/2ML AMP IV NR (10:15)
[2020-10-29] MEDS: IPRATROPIUM BROMIDE (0.02%) 0.5MG/2.5ML NEB HHN PRN (16:50)
[2020-10-29 18:38] LABS: EOSINOPHILS % 1.4 % (0.0-5.0); HEMATOCRIT. 35.9 % (42.0-52.0); HEMOGLOBIN. 11.4 g/dL (14.0-18.0); LYMPHOCYTES % 8.2 % (20.0-50.0); MEAN CORPUSCULAR HEMOGLOBIN 26.5 pg (28.0-32.0); MEAN CORPUSCULAR VOLUME 83.3 fL (80.0-94.0); MEAN PLATELET VOLUME 8.6 fl (7.4-10.4); MONOCYTES % 11.7 % (2.0-8.0); NEUTROPHILS % 77.7 % (40.0-76.0); PLATELET 426 x1000/uL (130-400); RED BLOOD CELL COUNT 4.31 mill/uL (4.7-6.1); RED CELL DISTRIBUTION WIDTH 17.9 % (11.6-14.6)
[2020-10-29 18:51] LABS: CHLORIDE 95 mEq/L (98-107)
[2020-10-29] MEDS: TOTAL PARENTERAL NUTRITION 1,600 ML IV SCH (20:46)
[2020-10-30] VITALS (12 sets, daily range): BP systolic 93–117; BP diastolic 57–82
[2020-10-30] MEDS: DILTIAZEM HCL 90MG TABLET PO SCH ×5 (00:08→18:51)
[2020-10-30] MEDS: IPRATROPIUM BROMIDE (0.02%) 0.5MG/2.5ML NEB HHN SCH ×4 (03:21→20:22)
[2020-10-30] MEDS: MIDODRINE HCL 5MG TABLET PO SCH ×3 (05:24→21:50)
[2020-10-30] MEDS: BLOOD SUGAR DIAGNOSTIC STRIP TEST SCH ×4 (05:24→18:00)
[2020-10-30] MEDS: ENOXAPARIN 40MG/0.4ML SYR SUBCUT SCH (09:00)
[2020-10-30] MEDS: METOPROLOL TARTRATE 25MG TABLET PO SCH ×2 (09:00→21:00)
[2020-10-30] MEDS: FAMOTIDINE 20MG/2ML VIAL IV SCH (09:05)
[2020-10-30] MEDS: AMIODARONE HCL 200 MG TABLET JT SCH ×2 (09:05→21:24)
[2020-10-30] MEDS: POLYETHYLENE GLYCOL 3350 (17GM) 1 DOSE PACK JT SCH (09:05)
[2020-10-30] MEDS: FERROUS SULFATE 300MG/5ML UDC JT SCH ×3 (09:05→18:51)
[2020-10-30] MEDS: HYDROCODONE/ACETAMINOPHEN 10/325MG TABLET JT PRN (09:06)
[2020-10-30 09:49] LABS: BASOPHILS % 0.9 % (0.0-2.0); HEMATOCRIT. 33.4 % (42.0-52.0); HEMOGLOBIN. 10.6 g/dL (14.0-18.0); LYMPHOCYTES % 8.5 % (20.0-50.0); MEAN CORPUSCULAR HEMOGLOBIN 26.4 pg (28.0-32.0); MEAN CORPUSCULAR VOLUME 83.5 fL (80.0-94.0); MEAN PLATELET VOLUME 8.2 fl (7.4-10.4); MONOCYTES % 10.8 % (2.0-8.0); NEUTROPHILS % 78.8 % (40.0-76.0); PLATELET 398 x1000/uL (130-400); RED CELL DISTRIBUTION WIDTH 18.2 % (11.6-14.6)
[2020-10-30 09:50] LABS: CHLORIDE 95 mEq/L (98-107)
[2020-10-30] MEDS: MORPHINE SULFATE 2 MG/ML CPJ (NOT FOR IM USE) IV PRN ×2 (12:08→22:31)
[2020-10-30] MEDS: FAT EMULSIONS 500 ML IV SCH (21:24)
[2020-10-30] MEDS: TOTAL PARENTERAL NUTRITION 1,600 ML IV SCH (21:26)
[2020-10-31] VITALS (12 sets, daily range): BP systolic 93–110; BP diastolic 50–66
[2020-10-31] MEDS: DILTIAZEM HCL 90MG TABLET PO SCH ×5 (01:11→23:56)
[2020-10-31] MEDS: IPRATROPIUM BROMIDE (0.02%) 0.5MG/2.5ML NEB HHN SCH ×4 (02:16→21:36)
[2020-10-31] MEDS: MIDODRINE HCL 5MG TABLET PO SCH ×3 (05:53→21:31)
[2020-10-31] MEDS: BLOOD SUGAR DIAGNOSTIC STRIP TEST SCH ×5 (05:54→23:53)
[2020-10-31] MEDS: MORPHINE SULFATE 2 MG/ML CPJ (NOT FOR IM USE) IV PRN ×2 (05:54→23:09)
[2020-10-31 05:57] LABS: CHLORIDE 96 mEq/L (98-107)
[2020-10-31 06:07] LABS: BASOPHILS % 0.8 % (0.0-2.0); EOSINOPHILS % 1.8 % (0.0-5.0); HEMATOCRIT. 32.8 % (42.0-52.0); HEMOGLOBIN. 10.4 g/dL (14.0-18.0); LYMPHOCYTES % 7.3 % (20.0-50.0); MEAN CORPUSCULAR HEMOGLOBIN 26.7 pg (28.0-32.0); MEAN CORPUSCULAR VOLUME 84.2 fL (80.0-94.0); MEAN PLATELET VOLUME 8.2 fl (7.4-10.4); MONOCYTES % 8.2 % (2.0-8.0); NEUTROPHILS % 81.9 % (40.0-76.0); PLATELET 397 x1000/uL (130-400); RED BLOOD CELL COUNT 3.89 mill/uL (4.7-6.1); RED CELL DISTRIBUTION WIDTH 18.7 % (11.6-14.6)
[2020-10-31] MEDS: FAMOTIDINE 20MG/2ML VIAL IV SCH (08:05)
[2020-10-31] MEDS: POLYETHYLENE GLYCOL 3350 (17GM) 1 DOSE PACK JT SCH (08:05)
[2020-10-31] MEDS: FERROUS SULFATE 300MG/5ML UDC JT SCH ×3 (08:05→18:25)
[2020-10-31] MEDS: HYDROCODONE/ACETAMINOPHEN 10/325MG TABLET JT PRN ×2 (08:06→18:47)
[2020-10-31] MEDS: ENOXAPARIN 40MG/0.4ML SYR SUBCUT SCH (08:06)
[2020-10-31] MEDS: METOPROLOL TARTRATE 25MG TABLET PO SCH ×2 (08:06→20:54)
[2020-10-31] MEDS: AMIODARONE HCL 200 MG TABLET JT SCH ×2 (08:06→21:31)
[2020-10-31] MEDS: MEROPENEM 1,000 MG in SODIUM CHLORIDE 0.9% 100 ML IV SCH (18:25)
[2020-10-31] MEDS: TOTAL PARENTERAL NUTRITION 1,600 ML IV SCH (20:48)
[2020-11-01] VITALS (12 sets, daily range): BP systolic 90–119; BP diastolic 51–70
[2020-11-01] MEDS: MEROPENEM 1,000 MG in SODIUM CHLORIDE 0.9% 100 ML IV SCH ×4 (02:14→17:13)
[2020-11-01] MEDS: IPRATROPIUM BROMIDE (0.02%) 0.5MG/2.5ML NEB HHN SCH ×4 (02:37→21:17)
[2020-11-01] MEDS: BLOOD SUGAR DIAGNOSTIC STRIP TEST SCH ×3 (05:52→17:21)
[2020-11-01] MEDS: MIDODRINE HCL 5MG TABLET PO SCH ×3 (05:58→22:13)
[2020-11-01] MEDS: DILTIAZEM HCL 90MG TABLET PO SCH ×5 (05:59→23:34)
[2020-11-01] MEDS: MORPHINE SULFATE 2 MG/ML CPJ (NOT FOR IM USE) IV PRN ×2 (06:05→20:09)
[2020-11-01] MEDS: FERROUS SULFATE 300MG/5ML UDC JT SCH ×4 (07:20→16:57)
[2020-11-01] MEDS: METOPROLOL TARTRATE 25MG TABLET PO SCH ×2 (08:33→21:00)
[2020-11-01] MEDS: ENOXAPARIN 40MG/0.4ML SYR SUBCUT SCH (08:34)
[2020-11-01] MEDS: POLYETHYLENE GLYCOL 3350 (17GM) 1 DOSE PACK JT SCH (08:35)
[2020-11-01] MEDS: AMIODARONE HCL 200 MG TABLET JT SCH ×2 (08:35→20:08)
[2020-11-01] MEDS: FAMOTIDINE 20MG/2ML VIAL IV SCH (08:35)
[2020-11-01] MEDS ORDERED: MAGNESIUM 4 G PREMIX 100 ML IV ONE (09:00)
[2020-11-01 09:05] LABS: BASOPHILS % 0.9 % (0.0-2.0); EOSINOPHILS % 2.7 % (0.0-5.0); HEMATOCRIT. 31.7 % (42.0-52.0); HEMOGLOBIN. 9.7 g/dL (14.0-18.0); LYMPHOCYTES % 7.7 % (20.0-50.0); MEAN CORPUSCULAR HEMOGLOBIN 25.9 pg (28.0-32.0); MEAN CORPUSCULAR VOLUME 84.2 fL (80.0-94.0); MEAN PLATELET VOLUME 8.4 fl (7.4-10.4); MONOCYTES % 9.5 % (2.0-8.0); NEUTROPHILS % 79.2 % (40.0-76.0); PLATELET 412 x1000/uL (130-400); RED BLOOD CELL COUNT 3.77 mill/uL (4.7-6.1); RED CELL DISTRIBUTION WIDTH 18.5 % (11.6-14.6)
[2020-11-01 09:14] LABS: CHLORIDE 97 mEq/L (98-107)
[2020-11-01] MEDS: HYDROCODONE/ACETAMINOPHEN 10/325MG TABLET JT PRN (17:12)
[2020-11-01] MEDS: TOTAL PARENTERAL NUTRITION 1,600 ML IV SCH (20:10)
[2020-11-02] VITALS (12 sets, daily range): BP systolic 92–121; BP diastolic 52–75
[2020-11-02] MEDS: MEROPENEM 1,000 MG in SODIUM CHLORIDE 0.9% 100 ML IV SCH ×3 (01:33→17:56)
[2020-11-02] MEDS: MORPHINE SULFATE 2 MG/ML CPJ (NOT FOR IM USE) IV PRN ×3 (02:32→18:01)
[2020-11-02] MEDS: IPRATROPIUM BROMIDE (0.02%) 0.5MG/2.5ML NEB HHN SCH ×4 (03:37→21:36)
[2020-11-02] MEDS: DILTIAZEM HCL 90MG TABLET PO SCH ×3 (05:42→17:55)
[2020-11-02] MEDS: MIDODRINE HCL 5MG TABLET PO SCH (05:43)
[2020-11-02] MEDS: HYDROCODONE/ACETAMINOPHEN 10/325MG TABLET JT PRN (06:13)
[2020-11-02] MEDS: BLOOD SUGAR DIAGNOSTIC STRIP TEST SCH ×5 (06:13→23:08)
[2020-11-02] MEDS: AMIODARONE HCL 200 MG TABLET JT SCH ×2 (08:33→21:24)
[2020-11-02] MEDS: FERROUS SULFATE 300MG/5ML UDC JT SCH ×3 (08:33→17:55)
[2020-11-02] MEDS: POLYETHYLENE GLYCOL 3350 (17GM) 1 DOSE PACK JT SCH (08:33)
[2020-11-02] MEDS: FAMOTIDINE 20MG/2ML VIAL IV SCH (08:33)
[2020-11-02] MEDS: ENOXAPARIN 40MG/0.4ML SYR SUBCUT SCH (08:43)
[2020-11-02 19:45] LABS: BASOPHILS % 0.7 % (0.0-2.0); HEMATOCRIT. 34.3 % (42.0-52.0); HEMOGLOBIN. 11.2 g/dL (14.0-18.0); MEAN CORPUSCULAR HEMOGLOBIN 27.6 pg (28.0-32.0); MEAN CORPUSCULAR VOLUME 84.5 fL (80.0-94.0); MEAN PLATELET VOLUME 8.5 fl (7.4-10.4); MONOCYTES % 9.5 % (2.0-8.0); NEUTROPHILS % 79.8 % (40.0-76.0); PLATELET 391 x1000/uL (130-400); RED BLOOD CELL COUNT 4.06 mill/uL (4.7-6.1); RED CELL DISTRIBUTION WIDTH 18.3 % (11.6-14.6)
[2020-11-02 20:20] LABS: CHLORIDE 100 mEq/L (98-107)
[2020-11-02] MEDS: FAT EMULSIONS 500 ML IV SCH (21:20)
[2020-11-02] MEDS: TOTAL PARENTERAL NUTRITION 1,600 ML IV SCH (21:29)
[2020-11-03] VITALS (20 sets, daily range): BP systolic 90–127; BP diastolic 52–78
[2020-11-03] MEDS: DILTIAZEM HCL 90MG TABLET PO SCH ×5 (00:39→23:31)
[2020-11-03] MEDS: MEROPENEM 1,000 MG in SODIUM CHLORIDE 0.9% 100 ML IV SCH ×3 (01:35→18:08)
[2020-11-03] MEDS: IPRATROPIUM BROMIDE (0.02%) 0.5MG/2.5ML NEB HHN SCH ×4 (02:11→21:46)
[2020-11-03] MEDS: BLOOD SUGAR DIAGNOSTIC STRIP TEST SCH ×5 (05:43→23:30)
[2020-11-03 05:56] LABS: CHLORIDE 101 mEq/L (98-107)
[2020-11-03] MEDS: HYDROCODONE/ACETAMINOPHEN 10/325MG TABLET JT PRN (06:07)
[2020-11-03 06:18] LABS: BASOPHILS % 0.8 % (0.0-2.0); HEMATOCRIT. 34.9 % (42.0-52.0); HEMOGLOBIN. 11.1 g/dL (14.0-18.0); MEAN CORPUSCULAR HEMOGLOBIN 26.8 pg (28.0-32.0); MEAN CORPUSCULAR VOLUME 84.2 fL (80.0-94.0); MEAN PLATELET VOLUME 8.6 fl (7.4-10.4); MONOCYTES % 9.8 % (2.0-8.0); NEUTROPHILS % 77.4 % (40.0-76.0); PLATELET 426 x1000/uL (130-400); RED BLOOD CELL COUNT 4.14 mill/uL (4.7-6.1); RED CELL DISTRIBUTION WIDTH 18.8 % (11.6-14.6)
[2020-11-03] MEDS: FERROUS SULFATE 300MG/5ML UDC JT SCH ×4 (07:20→17:20)
[2020-11-03] MEDS: ENOXAPARIN 40MG/0.4ML SYR SUBCUT SCH ×2 (09:00→09:14)
[2020-11-03] MEDS: POLYETHYLENE GLYCOL 3350 (17GM) 1 DOSE PACK JT SCH ×2 (09:00→09:14)
[2020-11-03] MEDS: FAMOTIDINE 20MG/2ML VIAL IV SCH (09:14)
[2020-11-03] MEDS: MORPHINE SULFATE 2 MG/ML CPJ (NOT FOR IM USE) IV PRN ×2 (09:16→16:22)
[2020-11-03] MEDS ORDERED: HYDROCODONE/ACETAMINOPHEN 10/325MG TABLET JT PRN (15:45)
[2020-11-03] MEDS ORDERED: DIGOXIN 500MCG/2ML AMP IV NR ×2 (17:00→21:30)
[2020-11-03] MEDS: TOTAL PARENTERAL NUTRITION 1,600 ML IV SCH (20:30)
[2020-11-03] MEDS: DEXTROSE 50% WATER 50ML SYRINGE IV PRN (23:31)
[2020-11-04] VITALS (75 sets, daily range): BP systolic 70–130; BP diastolic 40–75
[2020-11-04] MEDS ORDERED: DILTIAZEM HCL 125 MG in DEXT 5% WATER 100 ML IV PRN (01:15)
[2020-11-04] MEDS: IPRATROPIUM BROMIDE (0.02%) 0.5MG/2.5ML NEB HHN SCH ×4 (01:32→20:10)
[2020-11-04] MEDS: PHENYLEPHRINE 100 MG in DEXT 5% WATER 240 ML IV PRN ×2 (02:01→23:10)
[2020-11-04] MEDS: DILTIAZEM HCL 125 MG in DEXT 5% WATER 100 ML IV PRN ×2 (02:01→17:54)
[2020-11-04] MEDS: MEROPENEM 1,000 MG in SODIUM CHLORIDE 0.9% 100 ML IV SCH ×3 (02:08→17:54)
[2020-11-04 05:07] LABS: CHLORIDE 99 mEq/L (98-107)
[2020-11-04] MEDS: DILTIAZEM HCL 90MG TABLET PO SCH ×4 (05:29→23:44)
[2020-11-04 05:33] LABS: EOSINOPHILS % 1.3 % (0.0-5.0); HEMATOCRIT. 40.1 % (42.0-52.0); HEMOGLOBIN. 12.2 g/dL (14.0-18.0); LYMPHOCYTES % 8.4 % (20.0-50.0); MEAN CORPUSCULAR HEMOGLOBIN 26.2 pg (28.0-32.0); MEAN PLATELET VOLUME 9.2 fl (7.4-10.4); MONOCYTES % 11.3 % (2.0-8.0); PLATELET 322 x1000/uL (130-400); RED BLOOD CELL COUNT 4.66 mill/uL (4.7-6.1); RED CELL DISTRIBUTION WIDTH 18.4 % (11.6-14.6)
[2020-11-04] MEDS: BLOOD SUGAR DIAGNOSTIC STRIP TEST SCH ×4 (06:00→23:46)
[2020-11-04] MEDS: FERROUS SULFATE 300MG/5ML UDC JT SCH ×3 (07:00→15:57)
[2020-11-04] MEDS: ENOXAPARIN 40MG/0.4ML SYR SUBCUT SCH (09:00)
[2020-11-04] MEDS: POLYETHYLENE GLYCOL 3350 (17GM) 1 DOSE PACK JT SCH (09:00)
[2020-11-04] MEDS: FAMOTIDINE 20MG/2ML VIAL IV SCH (11:26)
[2020-11-04] MEDS ORDERED: CALCIUM CHLORIDE 1GM/10ML SYR IV ONE (11:45)
[2020-11-04] MEDS ORDERED: SODIUM BICARBONATE 8.4% 1 MEQ/ML 50ML SYR IV SCH (12:00)
[2020-11-04] MEDS ORDERED: TOTAL PARENTERAL NUTRITION 1,600 ML IV SCH (12:45)
[2020-11-04] MEDS ORDERED: CALCIUM CHLORIDE 1000 MG in DEXTROSE 5% WATER 100 ML IV SCH (13:00)
[2020-11-04] MEDS: MORPHINE SULFATE 2 MG/ML CPJ (NOT FOR IM USE) IV PRN ×2 (16:38→21:09)
[2020-11-04] MEDS: FAT EMULSIONS 500 ML IV SCH (20:37)
[2020-11-04] MEDS: TOTAL PARENTERAL NUTRITION 1,600 ML IV SCH (20:46)
[2020-11-05] VITALS (89 sets, daily range): BP systolic 76–132; BP diastolic 40–93
[2020-11-05] MEDS: PHENYLEPHRINE 100 MG in DEXT 5% WATER 240 ML IV PRN (00:57)
[2020-11-05] MEDS: MEROPENEM 1,000 MG in SODIUM CHLORIDE 0.9% 100 ML IV SCH ×3 (01:04→18:18)
[2020-11-05] MEDS: DILTIAZEM HCL 125 MG in DEXT 5% WATER 100 ML IV PRN ×2 (01:55→22:41)
[2020-11-05] MEDS: IPRATROPIUM BROMIDE (0.02%) 0.5MG/2.5ML NEB HHN SCH ×4 (02:33→20:40)
[2020-11-05 05:53] LABS: BASOPHILS % 0.9 % (0.0-2.0); EOSINOPHILS % 2.8 % (0.0-5.0); HEMATOCRIT. 36.4 % (42.0-52.0); HEMOGLOBIN. 11.4 g/dL (14.0-18.0); LYMPHOCYTES % 9.4 % (20.0-50.0); MEAN CORPUSCULAR HEMOGLOBIN 26.6 pg (28.0-32.0); MEAN CORPUSCULAR VOLUME 84.6 fL (80.0-94.0); MEAN PLATELET VOLUME 9.3 fl (7.4-10.4); MONOCYTES % 10.9 % (2.0-8.0); PLATELET 480 x1000/uL (130-400); RED CELL DISTRIBUTION WIDTH 18.9 % (11.6-14.6)
[2020-11-05 05:59] LABS: CHLORIDE 99 mEq/L (98-107)
[2020-11-05] MEDS: DILTIAZEM HCL 90MG TABLET PO SCH ×4 (06:00→23:05)
[2020-11-05] MEDS: BLOOD SUGAR DIAGNOSTIC STRIP TEST SCH (06:00)
[2020-11-05] MEDS: MORPHINE SULFATE 2 MG/ML CPJ (NOT FOR IM USE) IV PRN ×4 (06:44→21:41)
[2020-11-05] MEDS: FERROUS SULFATE 300MG/5ML UDC JT SCH ×3 (07:00→16:16)
[2020-11-05] MEDS: POLYETHYLENE GLYCOL 3350 (17GM) 1 DOSE PACK JT SCH (09:00)
[2020-11-05] MEDS: ENOXAPARIN 40MG/0.4ML SYR SUBCUT SCH (09:00)
[2020-11-05] MEDS ORDERED: MAGNESIUM 2 G PREMIX 50 ML IV NR (10:30)
[2020-11-05] MEDS: ONDANSETRON HCL 4MG/2ML INJ IV PRN (10:33)
[2020-11-05] MEDS: TOTAL PARENTERAL NUTRITION 1,600 ML IV SCH (21:12)
[2020-11-06] VITALS (95 sets, daily range): BP systolic 83–133; BP diastolic 30–73
[2020-11-06] MEDS: MORPHINE SULFATE 2 MG/ML CPJ (NOT FOR IM USE) IV PRN ×5 (00:51→20:59)
[2020-11-06] MEDS: MEROPENEM 1,000 MG in SODIUM CHLORIDE 0.9% 100 ML IV SCH ×3 (01:11→17:31)
[2020-11-06] MEDS: IPRATROPIUM BROMIDE (0.02%) 0.5MG/2.5ML NEB HHN SCH ×3 (02:32→13:41)
[2020-11-06 05:28] LABS: CHLORIDE 99 mEq/L (98-107)
[2020-11-06 05:38] LABS: BASOPHILS % 0.5 % (0.0-2.0); EOSINOPHILS % 2.1 % (0.0-5.0); HEMOGLOBIN. 11.3 g/dL (14.0-18.0); LYMPHOCYTES % 8.8 % (20.0-50.0); MEAN CORPUSCULAR HEMOGLOBIN 26.2 pg (28.0-32.0); MEAN PLATELET VOLUME 8.3 fl (7.4-10.4); MONOCYTES % 14.6 % (2.0-8.0); PLATELET 408 x1000/uL (130-400); RED BLOOD CELL COUNT 4.32 mill/uL (4.7-6.1); RED CELL DISTRIBUTION WIDTH 19.3 % (11.6-14.6)
[2020-11-06] MEDS: DILTIAZEM HCL 90MG TABLET PO SCH ×4 (06:00→14:58)
[2020-11-06] MEDS: FERROUS SULFATE 300MG/5ML UDC JT SCH ×4 (06:05→14:58)
[2020-11-06] MEDS: ENOXAPARIN 40MG/0.4ML SYR SUBCUT SCH (08:23)
[2020-11-06] MEDS: POLYETHYLENE GLYCOL 3350 (17GM) 1 DOSE PACK JT SCH (08:29)
[2020-11-06] MEDS: IPRATROPIUM BROMIDE (0.02%) 0.5MG/2.5ML NEB HHN PRN (20:30)
[2020-11-06] MEDS: TOTAL PARENTERAL NUTRITION 1,600 ML IV SCH (20:57)
[2020-11-06] MEDS: DILTIAZEM HCL 125 MG in DEXT 5% WATER 100 ML IV PRN (20:59)
[2020-11-06] MEDS: FAT EMULSIONS 500 ML IV SCH (23:16)
[2020-11-07] VITALS (88 sets, daily range): BP systolic 75–132; BP diastolic 21–68
[2020-11-07] MEDS: IPRATROPIUM BROMIDE (0.02%) 0.5MG/2.5ML NEB HHN SCH ×4 (01:36→22:06)
[2020-11-07] MEDS: MEROPENEM 1,000 MG in SODIUM CHLORIDE 0.9% 100 ML IV SCH ×3 (01:36→17:02)
[2020-11-07] MEDS: MORPHINE SULFATE 2 MG/ML CPJ (NOT FOR IM USE) IV PRN ×4 (01:36→20:45)
[2020-11-07] MEDS: PHENYLEPHRINE 100 MG in DEXT 5% WATER 240 ML IV PRN (01:44)
[2020-11-07 05:25] LABS: BASOPHILS % 0.8 % (0.0-2.0); EOSINOPHILS % 4.1 % (0.0-5.0); HEMATOCRIT. 36.6 % (42.0-52.0); HEMOGLOBIN. 11.5 g/dL (14.0-18.0); LYMPHOCYTES % 11.6 % (20.0-50.0); MEAN CORPUSCULAR HEMOGLOBIN 26.5 pg (28.0-32.0); MEAN CORPUSCULAR VOLUME 84.7 fL (80.0-94.0); MONOCYTES % 12.9 % (2.0-8.0); NEUTROPHILS % 70.6 % (40.0-76.0); PLATELET 428 x1000/uL (130-400); RED BLOOD CELL COUNT 4.32 mill/uL (4.7-6.1); RED CELL DISTRIBUTION WIDTH 18.7 % (11.6-14.6)
[2020-11-07 05:32] LABS: CHLORIDE 100 mEq/L (98-107)
[2020-11-07] MEDS: DILTIAZEM HCL 90MG TABLET PO SCH ×4 (06:00→17:00)
[2020-11-07] MEDS: FERROUS SULFATE 300MG/5ML UDC JT SCH ×3 (06:02→16:50)
[2020-11-07] MEDS: POLYETHYLENE GLYCOL 3350 (17GM) 1 DOSE PACK JT SCH (09:00)
[2020-11-07] MEDS: ENOXAPARIN 40MG/0.4ML SYR SUBCUT SCH (09:05)
[2020-11-07] MEDS: DILTIAZEM HCL 125 MG in DEXT 5% WATER 100 ML IV PRN (14:40)
[2020-11-07] MEDS: TOTAL PARENTERAL NUTRITION 1,600 ML IV SCH (21:08)
[2020-11-08] VITALS (96 sets, daily range): BP systolic 84–147; BP diastolic 47–95
[2020-11-08] MEDS: MORPHINE SULFATE 2 MG/ML CPJ (NOT FOR IM USE) IV PRN ×5 (03:08→20:56)
[2020-11-08] MEDS: DILTIAZEM HCL 90MG TABLET PO SCH ×4 (05:42→11:27)
[2020-11-08] MEDS: FERROUS SULFATE 300MG/5ML UDC JT SCH ×3 (06:18→11:27)
[2020-11-08] MEDS: PHENYLEPHRINE 100 MG in DEXT 5% WATER 240 ML IV PRN ×3 (06:32→20:43)
[2020-11-08] MEDS: POLYETHYLENE GLYCOL 3350 (17GM) 1 DOSE PACK JT SCH (08:36)
[2020-11-08] MEDS: ENOXAPARIN 40MG/0.4ML SYR SUBCUT SCH (08:48)
[2020-11-08 12:39] LABS: BASOPHILS % 0.6 % (0.0-2.0); EOSINOPHILS % 1.9 % (0.0-5.0); HEMATOCRIT. 37.1 % (42.0-52.0); HEMOGLOBIN. 11.8 g/dL (14.0-18.0); LYMPHOCYTES % 7.6 % (20.0-50.0); MEAN CORPUSCULAR HEMOGLOBIN 27.2 pg (28.0-32.0); MEAN CORPUSCULAR VOLUME 85.4 fL (80.0-94.0); MEAN PLATELET VOLUME 8.2 fl (7.4-10.4); MONOCYTES % 8.4 % (2.0-8.0); NEUTROPHILS % 81.5 % (40.0-76.0); PLATELET 405 x1000/uL (130-400); RED BLOOD CELL COUNT 4.35 mill/uL (4.7-6.1); RED CELL DISTRIBUTION WIDTH 18.4 % (11.6-14.6)
[2020-11-08 12:46] LABS: CHLORIDE 104 mEq/L (98-107)
[2020-11-08] MEDS: DILTIAZEM HCL 125 MG in DEXT 5% WATER 100 ML IV PRN (20:44)
[2020-11-08] MEDS: TOTAL PARENTERAL NUTRITION 1,600 ML IV SCH (20:45)
[2020-11-09] VITALS (82 sets, daily range): BP systolic 67–132; BP diastolic 20–71
[2020-11-09] MEDS: MORPHINE SULFATE 2 MG/ML CPJ (NOT FOR IM USE) IV PRN ×6 (00:43→22:56)
[2020-11-09] MEDS: DILTIAZEM HCL 90MG TABLET PO SCH ×4 (05:02→17:02)
[2020-11-09] MEDS: FERROUS SULFATE 300MG/5ML UDC JT SCH ×3 (06:05→16:54)
[2020-11-09] MEDS: ENOXAPARIN 40MG/0.4ML SYR SUBCUT SCH (09:19)
[2020-11-09 09:20] LABS: BASOPHILS % 1.1 % (0.0-2.0); EOSINOPHILS % 1.8 % (0.0-5.0); HEMATOCRIT. 33.5 % (42.0-52.0); HEMOGLOBIN. 10.5 g/dL (14.0-18.0); LYMPHOCYTES % 8.9 % (20.0-50.0); MEAN CORPUSCULAR HEMOGLOBIN 26.8 pg (28.0-32.0); MEAN CORPUSCULAR VOLUME 85.2 fL (80.0-94.0); MEAN PLATELET VOLUME 7.8 fl (7.4-10.4); MONOCYTES % 10.1 % (2.0-8.0); NEUTROPHILS % 78.1 % (40.0-76.0); PLATELET 412 x1000/uL (130-400); RED BLOOD CELL COUNT 3.93 mill/uL (4.7-6.1); RED CELL DISTRIBUTION WIDTH 18.4 % (11.6-14.6)
[2020-11-09] MEDS ORDERED: MAGNESIUM 2 G PREMIX 50 ML IV ONE (10:00)
[2020-11-09 11:00] LABS: CHLORIDE 103 mEq/L (98-107)
[2020-11-09] MEDS ORDERED: LIDOCAINE HCL/EPINEPHRINE 1%-EPI 1:100,000 20 ML VIAL INFIL SCH (15:00)
[2020-11-09] MEDS: FAT EMULSIONS 500 ML IV SCH (21:50)
[2020-11-09] MEDS: TOTAL PARENTERAL NUTRITION 1,600 ML IV SCH (21:52)
[2020-11-10] VITALS (71 sets, daily range): BP systolic 86–140; BP diastolic 48–92
[2020-11-10] MEDS: DILTIAZEM HCL 125 MG in DEXT 5% WATER 100 ML IV PRN (00:56)
[2020-11-10] MEDS: PHENYLEPHRINE 100 MG in DEXT 5% WATER 240 ML IV PRN (01:00)
[2020-11-10] MEDS: MORPHINE SULFATE 2 MG/ML CPJ (NOT FOR IM USE) IV PRN ×5 (03:46→21:15)
[2020-11-10] MEDS: DILTIAZEM HCL 90MG TABLET PO SCH ×4 (05:14→17:42)
[2020-11-10 05:34] LABS: BASOPHILS % 1.3 % (0.0-2.0); CHLORIDE 101 mEq/L (98-107); EOSINOPHILS % 4.2 % (0.0-5.0); HEMATOCRIT. 35.3 % (42.0-52.0); HEMOGLOBIN. 11.4 g/dL (14.0-18.0); LYMPHOCYTES % 10.6 % (20.0-50.0); MEAN CORPUSCULAR HEMOGLOBIN 27.5 pg (28.0-32.0); MEAN CORPUSCULAR VOLUME 84.7 fL (80.0-94.0); MEAN PLATELET VOLUME 8.7 fl (7.4-10.4); MONOCYTES % 8.6 % (2.0-8.0); NEUTROPHILS % 75.3 % (40.0-76.0); PLATELET 423 x1000/uL (130-400); RED BLOOD CELL COUNT 4.17 mill/uL (4.7-6.1)
[2020-11-10] MEDS: FERROUS SULFATE 300MG/5ML UDC JT SCH ×3 (07:00→16:09)
[2020-11-10] MEDS: ENOXAPARIN 40MG/0.4ML SYR SUBCUT SCH (08:00)
[2020-11-10 15:22] LABS: INR 1.2; PROTHROMBIN TIME 13.1 sec (9.6-11.0)
[2020-11-10] MEDS: TOTAL PARENTERAL NUTRITION 1,600 ML IV SCH (20:34)
[2020-11-10] MEDS: ONDANSETRON HCL 4MG/2ML INJ IV PRN (21:20)
[2020-11-11] VITALS (60 sets, daily range): BP systolic 87–129; BP diastolic 44–99
[2020-11-11] MEDS: MORPHINE SULFATE 2 MG/ML CPJ (NOT FOR IM USE) IV PRN ×4 (02:03→20:56)
[2020-11-11] MEDS: ONDANSETRON HCL 4MG/2ML INJ IV PRN (04:17)
[2020-11-11 05:32] LABS: EOSINOPHILS % 4.6 % (0.0-5.0); HEMATOCRIT. 35.8 % (42.0-52.0); HEMOGLOBIN. 11.2 g/dL (14.0-18.0); LYMPHOCYTES % 12.5 % (20.0-50.0); MEAN CORPUSCULAR HEMOGLOBIN 26.2 pg (28.0-32.0); MEAN CORPUSCULAR VOLUME 83.9 fL (80.0-94.0); MEAN PLATELET VOLUME 8.3 fl (7.4-10.4); MONOCYTES % 12.4 % (2.0-8.0); NEUTROPHILS % 69.5 % (40.0-76.0); PLATELET 360 x1000/uL (130-400); RED BLOOD CELL COUNT 4.26 mill/uL (4.7-6.1); RED CELL DISTRIBUTION WIDTH 18.6 % (11.6-14.6)
[2020-11-11 05:36] LABS: CHLORIDE 101 mEq/L (98-107)
[2020-11-11] MEDS: DILTIAZEM HCL 90MG TABLET PO SCH ×4 (06:00→17:39)
[2020-11-11] MEDS: FERROUS SULFATE 300MG/5ML UDC JT SCH ×3 (06:40→17:00)
[2020-11-11] MEDS: ENOXAPARIN 40MG/0.4ML SYR SUBCUT SCH (08:31)
[2020-11-11] MEDS: LIDOCAINE 5% PATCH TOP SCH (09:45)
[2020-11-11] MEDS: PHENYLEPHRINE 100 MG in DEXT 5% WATER 240 ML IV PRN (12:16)
[2020-11-11] MEDS: DILTIAZEM HCL 125 MG in DEXT 5% WATER 100 ML IV PRN (16:22)
[2020-11-11] MEDS: FAT EMULSIONS 500 ML IV SCH (21:17)
[2020-11-11] MEDS: TOTAL PARENTERAL NUTRITION 1,600 ML IV SCH (21:20)
[2020-11-12] VITALS (51 sets, daily range): BP systolic 82–130; BP diastolic 38–88
[2020-11-12] MEDS: MORPHINE SULFATE 2 MG/ML CPJ (NOT FOR IM USE) IV PRN ×3 (01:41→15:26)
[2020-11-12] MEDS: DILTIAZEM HCL 90MG TABLET PO SCH ×5 (06:00→23:27)
[2020-11-12] MEDS: LIDOCAINE 5% PATCH TOP SCH (09:00)
[2020-11-12] MEDS: ENOXAPARIN 40MG/0.4ML SYR SUBCUT SCH (09:00)
[2020-11-12 09:04] LABS: BASOPHILS % 2.3 % (0.0-2.0); EOSINOPHILS % 5.2 % (0.0-5.0); HEMATOCRIT. 34.2 % (42.0-52.0); HEMOGLOBIN. 10.9 g/dL (14.0-18.0); LYMPHOCYTES % 15.8 % (20.0-50.0); MEAN CORPUSCULAR HEMOGLOBIN 26.9 pg (28.0-32.0); MEAN CORPUSCULAR VOLUME 84.1 fL (80.0-94.0); MEAN PLATELET VOLUME 7.9 fl (7.4-10.4); MONOCYTES % 12.8 % (2.0-8.0); NEUTROPHILS % 63.9 % (40.0-76.0); PLATELET 352 x1000/uL (130-400); RED BLOOD CELL COUNT 4.07 mill/uL (4.7-6.1); RED CELL DISTRIBUTION WIDTH 18.3 % (11.6-14.6)
[2020-11-12 09:21] LABS: CHLORIDE 102 mEq/L (98-107)
[2020-11-12] MEDS ORDERED: KCL 20MEQ/100ML PREMIX 100 ML IV ONE (09:30)
[2020-11-12] MEDS ORDERED: HYDROCODONE/ACETAMINOPHEN 10/325MG TABLET JT PRN (09:45)
[2020-11-12] MEDS ORDERED: MAGNESIUM 2 G PREMIX 50 ML IV NR (13:00)
[2020-11-12] MEDS ORDERED: KCL 20MEQ/100ML PREMIX 100 ML IV NR (13:00)
[2020-11-12] MEDS: DILTIAZEM HCL 125 MG in DEXT 5% WATER 100 ML IV PRN (13:24)
[2020-11-12] MEDS ORDERED: ETOMIDATE 2MG/ML 10ML VIAL IV ONE (16:24)
[2020-11-12] MEDS ORDERED: FENTANYL CITRATE/PF 50MCG/ML 2ML VIAL ONE ×2 (16:25→18:52)
[2020-11-12] MEDS ORDERED: MIDAZOLAM HCL 2 MG/2 ML VIAL ONE (16:25)
[2020-11-12] MEDS ORDERED: ROCURONIUM BROMIDE 10MG/ML VIAL 5ML IV ONE (16:25)
[2020-11-12] MEDS ORDERED: PHENYLEPHRINE HCL 10 MG/ML 1ML (IV VIAL) IV ONE (16:28)
[2020-11-12] MEDS ORDERED: LIDOCAINE HCL 1% 20ML VIAL (Pyxis) INJ ONE (16:30)
[2020-11-12] MEDS ORDERED: SKIN ADHESIVE 0.7 GM EA TOP ONE (16:30)
[2020-11-12] MEDS ORDERED: SODIUM CHLORIDE 0.9% INJ 10ML FLUSH IVF ONE (16:31)
[2020-11-12] MEDS ORDERED: BUPIVACAINE HCL 0.5% (5MG/ML) 50ML ONE (16:31)
[2020-11-12] MEDS ORDERED: POLYMYXIN B SULFATE 500000 UNITS/VIAL ONE (16:31)
[2020-11-12] MEDS ORDERED: CEFAZOLIN SODIUM 1000MG/VIAL ONE (18:06)
[2020-11-12] MEDS ORDERED: SODIUM CHLORIDE 0.9% 10ML VIAL ONE (18:08)
[2020-11-12] MEDS ORDERED: NEOSTIGMINE METHYLSULFATE 1MG/ML 10 ML VIAL ONE (18:40)
[2020-11-12] MEDS ORDERED: GLYCOPYRROLATE 0.2 MG/ML 2ML VIAL ONE (18:42)
[2020-11-12] MEDS: MORPHINE SULFATE 4 MG/ML CPJ (NOT FOR IM USE) IV PRN (20:42)
[2020-11-12] MEDS: TOTAL PARENTERAL NUTRITION 1,600 ML IV SCH (21:47)
[2020-11-13] VITALS (90 sets, daily range): BP systolic 94–150; BP diastolic 48–83
[2020-11-13] MEDS: DILTIAZEM HCL 125 MG in DEXT 5% WATER 100 ML IV PRN (00:22)
[2020-11-13 05:13] LABS: BASOPHILS % 0.7 % (0.0-2.0); EOSINOPHILS % 0.9 % (0.0-5.0); HEMATOCRIT. 35.1 % (42.0-52.0); HEMOGLOBIN. 10.9 g/dL (14.0-18.0); LYMPHOCYTES % 8.1 % (20.0-50.0); MEAN CORPUSCULAR HEMOGLOBIN 26.4 pg (28.0-32.0); MEAN CORPUSCULAR VOLUME 84.8 fL (80.0-94.0); MEAN PLATELET VOLUME 8.3 fl (7.4-10.4); MONOCYTES % 6.5 % (2.0-8.0); NEUTROPHILS % 83.8 % (40.0-76.0); PLATELET 340 x1000/uL (130-400); RED BLOOD CELL COUNT 4.14 mill/uL (4.7-6.1); RED CELL DISTRIBUTION WIDTH 18.3 % (11.6-14.6)
[2020-11-13 05:14] LABS: CHLORIDE 102 mEq/L (98-107)
[2020-11-13] MEDS: DILTIAZEM HCL 90MG TABLET PO SCH ×4 (06:00→22:57)
[2020-11-13] MEDS: MORPHINE SULFATE 4 MG/ML CPJ (NOT FOR IM USE) IV PRN ×3 (06:09→21:11)
[2020-11-13] MEDS: LIDOCAINE 5% PATCH TOP SCH ×2 (09:00→09:10)
[2020-11-13] MEDS: ENOXAPARIN 40MG/0.4ML SYR SUBCUT SCH (09:11)
[2020-11-13] MEDS: AMIODARONE HCL 200 MG TABLET PO SCH ×2 (10:29→17:14)
[2020-11-13] MEDS: MIDODRINE HCL 5MG TABLET PO SCH ×3 (10:30→17:13)
[2020-11-13] MEDS: MORPHINE SULFATE 2 MG/ML CPJ (NOT FOR IM USE) IV PRN (15:15)
[2020-11-13] MEDS: FAT EMULSIONS 500 ML IV SCH (20:18)
[2020-11-13] MEDS: TOTAL PARENTERAL NUTRITION 1,600 ML IV SCH (20:20)
[2020-11-13] MEDS: DILTIAZEM HCL 5MG/ML 5ML VIAL IV PRN (23:19)
[2020-11-14] VITALS (13 sets, daily range): BP systolic 82–116; BP diastolic 46–61
[2020-11-14] MEDS: MORPHINE SULFATE 2 MG/ML CPJ (NOT FOR IM USE) IV PRN ×2 (00:25→08:50)
[2020-11-14] MEDS: DILTIAZEM HCL 90MG TABLET PO SCH ×3 (06:21→18:00)
[2020-11-14 06:47] LABS: EOSINOPHILS % 4.2 % (0.0-5.0); HEMATOCRIT. 30.3 % (42.0-52.0); LYMPHOCYTES % 9.2 % (20.0-50.0); MEAN CORPUSCULAR HEMOGLOBIN 27.6 pg (28.0-32.0); MEAN CORPUSCULAR VOLUME 83.9 fL (80.0-94.0); MEAN PLATELET VOLUME 8.5 fl (7.4-10.4); MONOCYTES % 14.6 % (2.0-8.0); PLATELET 311 x1000/uL (130-400); RED BLOOD CELL COUNT 3.61 mill/uL (4.7-6.1); RED CELL DISTRIBUTION WIDTH 18.1 % (11.6-14.6)
[2020-11-14 06:54] LABS: CHLORIDE 101 mEq/L (98-107)
[2020-11-14] MEDS: AMIODARONE HCL 200 MG TABLET PO SCH ×2 (08:46→17:00)
[2020-11-14] MEDS: MIDODRINE HCL 5MG TABLET PO SCH ×3 (08:46→17:00)
[2020-11-14] MEDS: ENOXAPARIN 40MG/0.4ML SYR SUBCUT SCH (08:47)
[2020-11-14] MEDS: LIDOCAINE 5% PATCH TOP SCH (08:49)
[2020-11-14] MEDS: MORPHINE SULFATE 4 MG/ML CPJ (NOT FOR IM USE) IV PRN ×2 (13:28→22:08)
[2020-11-14] MEDS ORDERED: POTASSIUM CHLORIDE INJ 40 MEQ in DEXT 5% WATER 250 ML IV SCH (14:00)
[2020-11-14] MEDS: TOTAL PARENTERAL NUTRITION 1,600 ML IV SCH (20:36)
[2020-11-15] VITALS (14 sets, daily range): BP systolic 94–137; BP diastolic 52–74
[2020-11-15] MEDS: DILTIAZEM HCL 90MG TABLET PO SCH ×4 (02:02→18:27)
[2020-11-15] MEDS: MORPHINE SULFATE 4 MG/ML CPJ (NOT FOR IM USE) IV PRN ×2 (02:38→21:05)
[2020-11-15] MEDS: MORPHINE SULFATE 2 MG/ML CPJ (NOT FOR IM USE) IV PRN ×2 (05:29→16:18)
[2020-11-15] MEDS: LIDOCAINE 5% PATCH TOP SCH (09:00)
[2020-11-15] MEDS: ENOXAPARIN 40MG/0.4ML SYR SUBCUT SCH (09:00)
[2020-11-15] MEDS: AMIODARONE HCL 200 MG TABLET PO SCH ×2 (10:08→18:27)
[2020-11-15] MEDS: MIDODRINE HCL 5MG TABLET PO SCH ×3 (10:08→18:27)
[2020-11-15] MEDS: TOTAL PARENTERAL NUTRITION 1,600 ML IV SCH (21:07)
[2020-11-16] VITALS (10 sets, daily range): BP systolic 91–121; BP diastolic 15–71
[2020-11-16] MEDS: MORPHINE SULFATE 2 MG/ML CPJ (NOT FOR IM USE) IV PRN ×2 (03:47→16:46)
[2020-11-16] MEDS: MORPHINE SULFATE 4 MG/ML CPJ (NOT FOR IM USE) IV PRN ×3 (05:48→20:29)
[2020-11-16] MEDS: DILTIAZEM HCL 90MG TABLET PO SCH ×5 (05:49→17:14)
[2020-11-16] MEDS: AMIODARONE HCL 200 MG TABLET PO SCH ×2 (08:12→17:14)
[2020-11-16] MEDS: ENOXAPARIN 40MG/0.4ML SYR SUBCUT SCH (08:13)
[2020-11-16] MEDS: MIDODRINE HCL 5MG TABLET PO SCH ×3 (08:13→17:15)
[2020-11-16] MEDS: LIDOCAINE 5% PATCH TOP SCH (08:14)
[2020-11-16] MEDS ORDERED: POTASSIUM CHLORIDE INJ 40 MEQ in DEXT 5% WATER 250 ML IV ONE (08:45)
[2020-11-16] MEDS: DILTIAZEM HCL 5MG/ML 5ML VIAL IV PRN (10:20)
[2020-11-16 13:18] LABS: CHLORIDE 103 mEq/L (98-107)
[2020-11-16] MEDS: FAT EMULSIONS 500 ML IV SCH (20:29)
[2020-11-16] MEDS: METOPROLOL TARTRATE 25MG TABLET PO SCH (20:33)
[2020-11-16] MEDS: TOTAL PARENTERAL NUTRITION 1,600 ML IV SCH (20:33)
[2020-11-17] VITALS (18 sets, daily range): BP systolic 90–126; BP diastolic 45–87
[2020-11-17] MEDS: DILTIAZEM HCL 90MG TABLET PO SCH ×5 (04:25→23:59)
[2020-11-17] MEDS: MORPHINE SULFATE 4 MG/ML CPJ (NOT FOR IM USE) IV PRN ×4 (04:26→17:12)
[2020-11-17 07:26] LABS: BASOPHILS % 1.1 % (0.0-2.0); EOSINOPHILS % 7.7 % (0.0-5.0); HEMATOCRIT. 33.6 % (42.0-52.0); HEMOGLOBIN. 10.7 g/dL (14.0-18.0); LYMPHOCYTES % 12.4 % (20.0-50.0); MEAN CORPUSCULAR HEMOGLOBIN 27.3 pg (28.0-32.0); MEAN CORPUSCULAR VOLUME 85.8 fL (80.0-94.0); MEAN PLATELET VOLUME 8.6 fl (7.4-10.4); MONOCYTES % 13.7 % (2.0-8.0); NEUTROPHILS % 65.1 % (40.0-76.0); PLATELET 337 x1000/uL (130-400); RED BLOOD CELL COUNT 3.92 mill/uL (4.7-6.1); RED CELL DISTRIBUTION WIDTH 18.1 % (11.6-14.6)
[2020-11-17 07:36] LABS: CHLORIDE 103 mEq/L (98-107)
[2020-11-17] MEDS: ENOXAPARIN 40MG/0.4ML SYR SUBCUT SCH (08:02)
[2020-11-17] MEDS: AMIODARONE HCL 200 MG TABLET PO SCH ×2 (08:03→17:11)
[2020-11-17] MEDS: MIDODRINE HCL 5MG TABLET PO SCH ×3 (08:03→17:11)
[2020-11-17] MEDS: LIDOCAINE 5% PATCH TOP SCH (08:04)
[2020-11-17] MEDS: METOPROLOL TARTRATE 25MG TABLET PO SCH ×2 (08:09→21:31)
[2020-11-17] MEDS ORDERED: SODIUM POLYSTYRENE SULFONATE 15 G/60 ML BOT PO SCH (11:00)
[2020-11-17] MEDS: DILTIAZEM HCL 5MG/ML 5ML VIAL IV PRN ×2 (12:14→14:41)
[2020-11-17] MEDS ORDERED: DEXT 5%/LACTATED RINGERS 500 ML IV ONE (20:00)
[2020-11-17] MEDS: MORPHINE SULFATE 2 MG/ML CPJ (NOT FOR IM USE) IV PRN (21:32)
[2020-11-17] MEDS: TOTAL PARENTERAL NUTRITION 1,600 ML IV SCH (21:34)
[2020-11-18] VITALS (12 sets, daily range): BP systolic 87–110; BP diastolic 56–74
[2020-11-18] MEDS: MORPHINE SULFATE 2 MG/ML CPJ (NOT FOR IM USE) IV PRN ×3 (04:40→23:44)
[2020-11-18] MEDS: DILTIAZEM HCL 5MG/ML 5ML VIAL IV PRN (04:40)
[2020-11-18] MEDS: DILTIAZEM HCL 90MG TABLET PO SCH ×5 (06:00→23:43)
[2020-11-18 06:41] LABS: CHLORIDE 102 mEq/L (98-107)
[2020-11-18 06:45] LABS: BASOPHILS % 0.9 % (0.0-2.0); EOSINOPHILS % 4.2 % (0.0-5.0); HEMATOCRIT. 32.1 % (42.0-52.0); HEMOGLOBIN. 10.1 g/dL (14.0-18.0); LYMPHOCYTES % 8.6 % (20.0-50.0); MEAN CORPUSCULAR HEMOGLOBIN 26.5 pg (28.0-32.0); MEAN CORPUSCULAR VOLUME 83.8 fL (80.0-94.0); MEAN PLATELET VOLUME 8.3 fl (7.4-10.4); MONOCYTES % 11.9 % (2.0-8.0); NEUTROPHILS % 74.4 % (40.0-76.0); PLATELET 331 x1000/uL (130-400); RED BLOOD CELL COUNT 3.83 mill/uL (4.7-6.1); RED CELL DISTRIBUTION WIDTH 18.4 % (11.6-14.6)
[2020-11-18] MEDS: AMIODARONE HCL 200 MG TABLET PO SCH ×2 (08:17→17:16)
[2020-11-18] MEDS: METOPROLOL TARTRATE 25MG TABLET PO SCH ×2 (08:17→20:37)
[2020-11-18] MEDS: MIDODRINE HCL 5MG TABLET PO SCH ×3 (08:17→17:15)
[2020-11-18] MEDS: ENOXAPARIN 40MG/0.4ML SYR SUBCUT SCH (08:17)
[2020-11-18] MEDS: LIDOCAINE 5% PATCH TOP SCH (08:30)
[2020-11-18] MEDS: LORAZEPAM 2MG/ML CPJ IM PRN (20:36)
[2020-11-18] MEDS: FAT EMULSIONS 500 ML IV SCH (20:37)
[2020-11-18] MEDS: TOTAL PARENTERAL NUTRITION 1,600 ML IV SCH (20:39)
[2020-11-19] VITALS (11 sets, daily range): BP systolic 83–116; BP diastolic 50–65
[2020-11-19] MEDS: LORAZEPAM 2MG/ML CPJ IM PRN (03:02)
[2020-11-19] MEDS: DILTIAZEM HCL 90MG TABLET PO SCH ×3 (06:20→18:01)
[2020-11-19] MEDS: ENOXAPARIN 40MG/0.4ML SYR SUBCUT SCH (08:21)
[2020-11-19] MEDS: AMIODARONE HCL 200 MG TABLET PO SCH ×2 (08:21→16:28)
[2020-11-19] MEDS: LIDOCAINE 5% PATCH TOP SCH (08:22)
[2020-11-19] MEDS: METOPROLOL TARTRATE 25MG TABLET PO SCH ×2 (08:22→21:45)
[2020-11-19] MEDS: MIDODRINE HCL 5MG TABLET PO SCH ×3 (08:23→16:28)
[2020-11-19] MEDS: MORPHINE SULFATE 2 MG/ML CPJ (NOT FOR IM USE) IV PRN ×3 (11:55→21:58)
[2020-11-19] MEDS: TOTAL PARENTERAL NUTRITION 1,600 ML IV SCH (21:46)
[2020-11-20] VITALS (12 sets, daily range): BP systolic 90–122; BP diastolic 25–74
[2020-11-20] MEDS: DILTIAZEM HCL 90MG TABLET PO SCH ×5 (00:18→23:52)
[2020-11-20] MEDS: MORPHINE SULFATE 2 MG/ML CPJ (NOT FOR IM USE) IV PRN ×3 (02:37→20:47)
[2020-11-20 07:16] LABS: HEMATOCRIT. 34.1 % (42.0-52.0); HEMOGLOBIN. 10.8 g/dL (14.0-18.0); MEAN CORPUSCULAR HEMOGLOBIN 26.8 pg (28.0-32.0); MEAN CORPUSCULAR VOLUME 84.9 fL (80.0-94.0); MEAN PLATELET VOLUME 8.5 fl (7.4-10.4); PLATELET 339 x1000/uL (130-400); RED BLOOD CELL COUNT 4.01 mill/uL (4.7-6.1); RED CELL DISTRIBUTION WIDTH 18.5 % (11.6-14.6)
[2020-11-20 07:26] LABS: CHLORIDE 104 mEq/L (98-107)
[2020-11-20] MEDS: METOPROLOL TARTRATE 25MG TABLET PO SCH ×2 (08:23→20:48)
[2020-11-20] MEDS: AMIODARONE HCL 200 MG TABLET PO SCH ×2 (08:23→17:28)
[2020-11-20] MEDS: MIDODRINE HCL 5MG TABLET PO SCH ×3 (08:25→17:28)
[2020-11-20] MEDS: ENOXAPARIN 40MG/0.4ML SYR SUBCUT SCH (08:46)
[2020-11-20] MEDS: LIDOCAINE 5% PATCH TOP SCH (08:52)
[2020-11-20] MEDS: HYDROCODONE/ACETAMINOPHEN 5/325MG TABLET PO SCH (11:00)
[2020-11-20 11:45] LABS: ATYPICAL LYMPHOCYTES 1
[2020-11-20 11:46] LABS: PLATELET ESTIMATE NORMAL
[2020-11-20] MEDS: HYDROCODONE/ACETAMINOPHEN 10/325MG TABLET JT PRN (12:51)
[2020-11-20] MEDS: FAT EMULSIONS 500 ML IV SCH (20:47)
[2020-11-20] MEDS: TOTAL PARENTERAL NUTRITION 1,600 ML IV SCH (21:00)
[2020-11-20] MEDS: LORAZEPAM 2MG/ML CPJ IM PRN (23:30)
[2020-11-21] VITALS (12 sets, daily range): BP systolic 94–140; BP diastolic 60–72
[2020-11-21] MEDS: HYDROCODONE/ACETAMINOPHEN 10/325MG TABLET JT PRN (00:03)
[2020-11-21] MEDS: DILTIAZEM HCL 5MG/ML 5ML VIAL IV PRN (03:45)
[2020-11-21] MEDS: MORPHINE SULFATE 2 MG/ML CPJ (NOT FOR IM USE) IV PRN ×4 (04:19→20:38)
[2020-11-21] MEDS: DILTIAZEM HCL 90MG TABLET PO SCH ×4 (06:06→23:09)
[2020-11-21 06:48] LABS: BASOPHILS % 0.8 % (0.0-2.0); HEMATOCRIT. 30.3 % (42.0-52.0); HEMOGLOBIN. 9.6 g/dL (14.0-18.0); LYMPHOCYTES % 9.6 % (20.0-50.0); MEAN CORPUSCULAR HEMOGLOBIN 26.9 pg (28.0-32.0); MEAN CORPUSCULAR VOLUME 84.5 fL (80.0-94.0); MEAN PLATELET VOLUME 8.3 fl (7.4-10.4); MONOCYTES % 12.2 % (2.0-8.0); NEUTROPHILS % 74.4 % (40.0-76.0); PLATELET 360 x1000/uL (130-400); RED BLOOD CELL COUNT 3.58 mill/uL (4.7-6.1); RED CELL DISTRIBUTION WIDTH 18.4 % (11.6-14.6)
[2020-11-21 07:51] LABS: CHLORIDE 105 mEq/L (98-107)
[2020-11-21] MEDS: MIDODRINE HCL 5MG TABLET PO SCH ×3 (08:12→18:11)
[2020-11-21] MEDS: METOPROLOL TARTRATE 25MG TABLET PO SCH ×2 (08:12→21:51)
[2020-11-21] MEDS: AMIODARONE HCL 200 MG TABLET PO SCH ×2 (08:12→18:12)
[2020-11-21] MEDS: ENOXAPARIN 40MG/0.4ML SYR SUBCUT SCH (08:13)
[2020-11-21] MEDS: LIDOCAINE 5% PATCH TOP SCH (09:00)
[2020-11-21] MEDS ORDERED: KCL 20MEQ/100ML PREMIX 100 ML IV ONE (10:30)
[2020-11-21 11:09] LABS: BG BASE EXCESS 2.3 mmol/L (-2.0-2.0); BG CARBOXYHEMOGLOBIN 0.7 % (0.5-1.5); BG FRACTION INSPIRED OXYGEN 40; BG HCO3 ACT 25.5 mmol/L (22.0-26.0); BG METHEMOGLOBIN 0.2 % (0.0-1.5); BG OXYGEN SATURATION 64.7 % (92.0-98.5); BG OXYHEMOGLOBIN 64.1 % (94.0-97.0); BG PCO2 34.4 mmHg (35.0-45.0); BG PH 7.488 (7.350-7.450); BG PO2 33.2 mmHg (75.0-100.0); BG SAMPLE SITE RIGHT RADIAL; BG TOTAL HEMOGLOBIN 10.6 g/dL (12.0-18.0); BG VENT MODE NASAL CANNULA
[2020-11-21] MEDS ORDERED: METHYLPREDNISOLONE SOD SUCC 125 MG/2 ML VIAL IV SCH (11:15)
[2020-11-21] MEDS: IPRATROPIUM BROMIDE (0.02%) 0.5MG/2.5ML NEB HHN SCH ×4 (11:36→21:16)
[2020-11-21] MEDS: HYDROCODONE/ACETAMINOPHEN 5/325MG TABLET PO SCH (12:15)
[2020-11-21] MEDS: METHYLPREDNISOLONE SOD SUCC 40 MG/ML VIAL IV SCH (18:11)
[2020-11-21] MEDS: TOTAL PARENTERAL NUTRITION 1,600 ML IV SCH (21:52)
[2020-11-21] MEDS: LORAZEPAM 2MG/ML CPJ IM PRN (23:37)
[2020-11-22] VITALS (12 sets, daily range): BP systolic 90–139; BP diastolic 58–93
[2020-11-22] MEDS: IPRATROPIUM BROMIDE (0.02%) 0.5MG/2.5ML NEB HHN SCH ×5 (00:50→20:51)
[2020-11-22] MEDS: METHYLPREDNISOLONE SOD SUCC 40 MG/ML VIAL IV SCH ×3 (02:37→18:25)
[2020-11-22] MEDS: MORPHINE SULFATE 2 MG/ML CPJ (NOT FOR IM USE) IV PRN ×5 (02:53→20:48)
[2020-11-22] MEDS: HALOPERIDOL LACTATE 5MG/ML VIAL IM PRN ×2 (03:41→17:06)
[2020-11-22] MEDS: DILTIAZEM HCL 90MG TABLET PO SCH ×3 (06:46→18:26)
[2020-11-22] MEDS: HYDROCODONE/ACETAMINOPHEN 5/325MG TABLET PO SCH (08:16)
[2020-11-22] MEDS: METOPROLOL TARTRATE 25MG TABLET PO SCH ×2 (08:16→20:23)
[2020-11-22] MEDS: AMIODARONE HCL 200 MG TABLET PO SCH ×2 (08:16→18:25)
[2020-11-22] MEDS: MIDODRINE HCL 5MG TABLET PO SCH ×3 (08:17→18:25)
[2020-11-22] MEDS: ENOXAPARIN 40MG/0.4ML SYR SUBCUT SCH (08:17)
[2020-11-22] MEDS: LIDOCAINE 5% PATCH TOP SCH (08:17)
[2020-11-22] MEDS ORDERED: SENNOSIDES/DOCUSATE SOD 8.6/50MG TABLET JT SCH (11:45)
[2020-11-22] MEDS ORDERED: MORPHINE SULFATE 2 MG/ML CPJ (NOT FOR IM USE) IV PRN (12:00)
[2020-11-22] MEDS: DOCUSATE SODIUM SUGAR FREE 100MG/10ML UDC JT SCH (13:33)
[2020-11-22] MEDS ORDERED: LIDOCAINE HCL/PF 1% 2ML VIAL ONE (14:29)
[2020-11-22 15:44] LABS: BG BASE EXCESS 1.7 mmol/L (-2.0-2.0); BG CARBOXYHEMOGLOBIN 0.1 % (0.5-1.5); BG DEOXYHEMOGLOBIN 6.3 % (0.0-5.0); BG FRACTION INSPIRED OXYGEN 100; BG HCO3 ACT 28.2 mmol/L (22.0-26.0); BG METHEMOGLOBIN 0.1 % (0.0-1.5); BG OXYGEN SATURATION 93.7 % (92.0-98.5); BG OXYHEMOGLOBIN 93.5 % (94.0-97.0); BG PCO2 53.6 mmHg (35.0-45.0); BG PH 7.339 (7.350-7.450); BG PO2 75.1 mmHg (75.0-100.0); BG SAMPLE SITE RIGHT BRACHIAL; BG TOTAL HEMOGLOBIN 10.9 g/dL (12.0-18.0); BG VENT MODE MASK - NRB
[2020-11-22] MEDS ORDERED: IPRATROPIUM/ALBUTEROL 0.5-3(2.5)MG/3ML NEB HHN NR (16:30)
[2020-11-22] MEDS ORDERED: IPRATROPIUM/ALBUTEROL 0.5-3(2.5)MG/3ML NEB HHN PRN (16:30)
[2020-11-22 17:27] LABS: HEMATOCRIT. 33.7 % (42.0-52.0); HEMOGLOBIN. 10.3 g/dL (14.0-18.0); MEAN CORPUSCULAR HEMOGLOBIN 26.6 pg (28.0-32.0); MEAN CORPUSCULAR VOLUME 87.1 fL (80.0-94.0); MEAN PLATELET VOLUME 8.6 fl (7.4-10.4); PLATELET 356 x1000/uL (130-400); RED BLOOD CELL COUNT 3.87 mill/uL (4.7-6.1); RED CELL DISTRIBUTION WIDTH 19.1 % (11.6-14.6)
[2020-11-22] MEDS: MEROPENEM 500 MG in SODIUM CHLORIDE 0.9% 50 ML IV SCH (20:23)
[2020-11-22] MEDS: TOTAL PARENTERAL NUTRITION 1,600 ML IV SCH (20:24)
[2020-11-22] MEDS: HALOPERIDOL 2MG TABLET PO SCH (20:24)
[2020-11-22 20:26] LABS: PLATELET ESTIMATE NORMAL
[2020-11-23] VITALS (12 sets, daily range): BP systolic 119–143; BP diastolic 55–85
[2020-11-23] MEDS: METHYLPREDNISOLONE SOD SUCC 40 MG/ML VIAL IV SCH ×5 (00:06→23:25)
[2020-11-23] MEDS: DILTIAZEM HCL 90MG TABLET PO SCH ×2 (00:06→05:32)
[2020-11-23] MEDS: MORPHINE SULFATE 2 MG/ML CPJ (NOT FOR IM USE) IV PRN ×6 (00:07→23:06)
[2020-11-23] MEDS: IPRATROPIUM BROMIDE (0.02%) 0.5MG/2.5ML NEB HHN SCH ×6 (01:07→22:21)
[2020-11-23] MEDS: MEROPENEM 500 MG in SODIUM CHLORIDE 0.9% 50 ML IV SCH ×3 (04:04→19:58)
[2020-11-23 07:06] LABS: CHLORIDE 107 mEq/L (98-107)
[2020-11-23 07:23] LABS: HEMATOCRIT. 32.2 % (42.0-52.0); HEMOGLOBIN. 9.8 g/dL (14.0-18.0); MEAN CORPUSCULAR HEMOGLOBIN 26.3 pg (28.0-32.0); MEAN CORPUSCULAR VOLUME 86.5 fL (80.0-94.0); MEAN PLATELET VOLUME 8.5 fl (7.4-10.4); PLATELET 334 x1000/uL (130-400); RED BLOOD CELL COUNT 3.73 mill/uL (4.7-6.1); RED CELL DISTRIBUTION WIDTH 18.6 % (11.6-14.6)
[2020-11-23] MEDS: LIDOCAINE 5% PATCH TOP SCH (09:00)
[2020-11-23] MEDS: HALOPERIDOL 2MG TABLET PO SCH (09:04)
[2020-11-23] MEDS: AMIODARONE HCL 200 MG TABLET PO SCH (09:04)
[2020-11-23] MEDS: DOCUSATE SODIUM SUGAR FREE 100MG/10ML UDC JT SCH (09:04)
[2020-11-23] MEDS: MIDODRINE HCL 5MG TABLET PO SCH (09:05)
[2020-11-23] MEDS: METOPROLOL TARTRATE 25MG TABLET PO SCH (09:05)
[2020-11-23] MEDS: ENOXAPARIN 40MG/0.4ML SYR SUBCUT SCH (09:05)
[2020-11-23] MEDS ORDERED: MORPHINE SULFATE 4 MG/ML CPJ (NOT FOR IM USE) IV PRN (10:38)
[2020-11-23] MEDS ORDERED: METOPROLOL TARTRATE 25MG TABLET JT SCH (11:10)
[2020-11-23] MEDS: DILTIAZEM HCL 90MG TABLET JT SCH ×2 (12:12→17:33)
[2020-11-23] MEDS: MIDODRINE HCL 5MG TABLET JT SCH ×2 (12:29→17:33)
[2020-11-23 14:06] LABS: BG BASE EXCESS 5.7 mmol/L (-2.0-2.0); BG CARBOXYHEMOGLOBIN 0.1 % (0.5-1.5); BG DEOXYHEMOGLOBIN 4.2 % (0.0-5.0); BG FRACTION INSPIRED OXYGEN 99.8; BG HCO3 ACT 32.3 mmol/L (22.0-26.0); BG METHEMOGLOBIN 0.2 % (0.0-1.5); BG OXYGEN SATURATION 95.8 % (92.0-98.5); BG OXYHEMOGLOBIN 95.5 % (94.0-97.0); BG PH 7.363 (7.350-7.450); BG PO2 83.4 mmHg (75.0-100.0); BG SAMPLE SITE RIGHT BRACHIAL; BG VENT MODE MASK - NRB
[2020-11-23 14:11] LABS: NUCLEATED RED BLOOD CELLS 1 /100 WBC; PLATELET ESTIMATE NORMAL
[2020-11-23] MEDS: AMIODARONE HCL 200 MG TABLET JT SCH (17:33)
[2020-11-23] MEDS: HALOPERIDOL 2MG TABLET JT SCH (20:10)
[2020-11-23] MEDS: FAT EMULSIONS 500 ML IV SCH (20:47)
[2020-11-23] MEDS: TOTAL PARENTERAL NUTRITION 1,600 ML IV SCH (20:47)
[2020-11-24] VITALS (12 sets, daily range): BP systolic 103–165; BP diastolic 48–121
[2020-11-24] MEDS: IPRATROPIUM BROMIDE (0.02%) 0.5MG/2.5ML NEB HHN SCH ×6 (00:53→21:32)
[2020-11-24] MEDS: MEROPENEM 500 MG in SODIUM CHLORIDE 0.9% 50 ML IV SCH ×3 (03:53→22:22)
[2020-11-24] MEDS: MORPHINE SULFATE 2 MG/ML CPJ (NOT FOR IM USE) IV PRN ×2 (05:59→20:08)
[2020-11-24] MEDS: METHYLPREDNISOLONE SOD SUCC 40 MG/ML VIAL IV SCH ×3 (06:00→17:14)
[2020-11-24 07:20] LABS: BASOPHILS % 0.1 % (0.0-2.0); HEMATOCRIT. 30.7 % (42.0-52.0); HEMOGLOBIN. 9.4 g/dL (14.0-18.0); LYMPHOCYTES % 3.8 % (20.0-50.0); MEAN CORPUSCULAR HEMOGLOBIN 27.1 pg (28.0-32.0); MEAN CORPUSCULAR VOLUME 88.4 fL (80.0-94.0); MEAN PLATELET VOLUME 9.1 fl (7.4-10.4); MONOCYTES % 5.5 % (2.0-8.0); NEUTROPHILS % 90.6 % (40.0-76.0); PLATELET 306 x1000/uL (130-400); RED BLOOD CELL COUNT 3.48 mill/uL (4.7-6.1); RED CELL DISTRIBUTION WIDTH 19.2 % (11.6-14.6)
[2020-11-24 07:23] LABS: CHLORIDE 106 mEq/L (98-107)
[2020-11-24] MEDS: DOCUSATE SODIUM SUGAR FREE 100MG/10ML UDC JT SCH (08:40)
[2020-11-24] MEDS: ENOXAPARIN 40MG/0.4ML SYR SUBCUT SCH (08:40)
[2020-11-24] MEDS: MIDODRINE HCL 5MG TABLET JT SCH ×3 (08:41→16:35)
[2020-11-24] MEDS: AMIODARONE HCL 200 MG TABLET JT SCH ×2 (08:41→16:35)
[2020-11-24] MEDS: HALOPERIDOL 2MG TABLET JT SCH ×2 (08:41→22:22)
[2020-11-24] MEDS: LIDOCAINE 5% PATCH TOP SCH (08:42)
[2020-11-24 09:13] LABS: BG BASE EXCESS 6.9 mmol/L (-2.0-2.0); BG CARBOXYHEMOGLOBIN 0.3 % (0.5-1.5); BG DEOXYHEMOGLOBIN 5.5 % (0.0-5.0); BG FRACTION INSPIRED OXYGEN 99.8; BG HCO3 ACT 33.1 mmol/L (22.0-26.0); BG METHEMOGLOBIN 0.1 % (0.0-1.5); BG OXYGEN SATURATION 94.5 % (92.0-98.5); BG OXYHEMOGLOBIN 94.1 % (94.0-97.0); BG PCO2 56.4 mmHg (35.0-45.0); BG PH 7.386 (7.350-7.450); BG PO2 74.6 mmHg (75.0-100.0); BG SAMPLE SITE RIGHT RADIAL; BG TOTAL HEMOGLOBIN 9.7 g/dL (12.0-18.0); BG VENT MODE MASK - NRB
[2020-11-24] MEDS ORDERED: POTASSIUM CHLORIDE INJ 40 MEQ in DEXT 5% WATER 250 ML IV SCH (11:00)
[2020-11-24] MEDS: TOTAL PARENTERAL NUTRITION 1,600 ML IV SCH (22:24)
[2020-11-25] VITALS (11 sets, daily range): BP systolic 101–164; BP diastolic 37–116
[2020-11-25] MEDS: IPRATROPIUM BROMIDE (0.02%) 0.5MG/2.5ML NEB HHN SCH ×8 (00:49→21:15)
[2020-11-25] MEDS: METHYLPREDNISOLONE SOD SUCC 40 MG/ML VIAL IV SCH ×5 (00:54→23:23)
[2020-11-25] MEDS: DILTIAZEM HCL 5MG/ML 5ML VIAL IV PRN ×6 (02:35→23:23)
[2020-11-25] MEDS: MEROPENEM 500 MG in SODIUM CHLORIDE 0.9% 50 ML IV SCH ×3 (04:51→20:57)
[2020-11-25 06:53] LABS: CHLORIDE 109 mEq/L (98-107)
[2020-11-25 06:56] LABS: HEMATOCRIT. 31.9 % (42.0-52.0); HEMOGLOBIN. 9.9 g/dL (14.0-18.0); MEAN CORPUSCULAR HEMOGLOBIN 26.7 pg (28.0-32.0); MEAN CORPUSCULAR VOLUME 86.4 fL (80.0-94.0); MEAN PLATELET VOLUME 9.1 fl (7.4-10.4); PLATELET 288 x1000/uL (130-400); RED BLOOD CELL COUNT 3.69 mill/uL (4.7-6.1); RED CELL DISTRIBUTION WIDTH 18.7 % (11.6-14.6)
[2020-11-25 07:01] LABS: PHOSPHORUS 2.6 mg/dL (2.5-4.9)
[2020-11-25] MEDS: DOCUSATE SODIUM SUGAR FREE 100MG/10ML UDC JT SCH ×2 (08:37→10:31)
[2020-11-25] MEDS: AMIODARONE HCL 200 MG TABLET JT SCH ×3 (08:37→16:02)
[2020-11-25] MEDS: HALOPERIDOL 2MG TABLET JT SCH ×3 (08:37→21:08)
[2020-11-25] MEDS: LIDOCAINE 5% PATCH TOP SCH (08:38)
[2020-11-25] MEDS: MIDODRINE HCL 5MG TABLET JT SCH ×4 (08:38→16:02)
[2020-11-25] MEDS ORDERED: IOHEXOL-300 50 ML BOTTLE IV ONE (09:47)
[2020-11-25] MEDS ORDERED: LIDOCAINE HCL 1% 20ML VIAL (Pyxis) INJ ONE (09:47)
[2020-11-25] MEDS: ENOXAPARIN 40MG/0.4ML SYR SUBCUT SCH (10:34)
[2020-11-25] MEDS ORDERED: DILTIAZEM HCL 125 MG in DEXT 5% WATER 100 ML IV SCH (11:00)
[2020-11-25] MEDS: DILTIAZEM HCL 90MG TABLET PO SCH ×3 (14:14→23:31)
[2020-11-25] MEDS: MORPHINE SULFATE 2 MG/ML CPJ (NOT FOR IM USE) IV PRN (15:53)
[2020-11-25] MEDS: FAT EMULSIONS 500 ML IV SCH (20:58)
[2020-11-25] MEDS: TOTAL PARENTERAL NUTRITION 1,600 ML IV SCH (21:10)
[2020-11-25 22:24] LABS: NUCLEATED RED BLOOD CELLS 4 /100 WBC; PLATELET ESTIMATE NORMAL
[2020-11-26] VITALS (11 sets, daily range): BP systolic 118–142; BP diastolic 67–98
[2020-11-26] MEDS: IPRATROPIUM BROMIDE (0.02%) 0.5MG/2.5ML NEB HHN SCH ×6 (00:50→20:30)
[2020-11-26] MEDS: DILTIAZEM HCL 5MG/ML 5ML VIAL IV PRN ×4 (02:03→15:15)
[2020-11-26] MEDS: MORPHINE SULFATE 2 MG/ML CPJ (NOT FOR IM USE) IV PRN ×2 (03:50→22:26)
[2020-11-26] MEDS: MEROPENEM 500 MG in SODIUM CHLORIDE 0.9% 50 ML IV SCH ×3 (04:28→19:31)
[2020-11-26] MEDS: METHYLPREDNISOLONE SOD SUCC 40 MG/ML VIAL IV SCH ×3 (05:51→18:45)
[2020-11-26] MEDS: DILTIAZEM HCL 90MG TABLET PO SCH (05:52)
[2020-11-26] MEDS ORDERED: DILTIAZEM HCL 125 MG in DEXT 5% WATER 100 ML IV SCH (06:15)
[2020-11-26 06:27] LABS: CHLORIDE 111 mEq/L (98-107)
[2020-11-26 06:34] LABS: HEMATOCRIT. 31.4 % (42.0-52.0); HEMOGLOBIN. 9.9 g/dL (14.0-18.0); MEAN CORPUSCULAR HEMOGLOBIN 27.2 pg (28.0-32.0); MEAN CORPUSCULAR VOLUME 86.1 fL (80.0-94.0); MEAN PLATELET VOLUME 9.2 fl (7.4-10.4); PLATELET 280 x1000/uL (130-400); RED BLOOD CELL COUNT 3.65 mill/uL (4.7-6.1); RED CELL DISTRIBUTION WIDTH 18.7 % (11.6-14.6)
[2020-11-26 08:17] LABS: BG CARBOXYHEMOGLOBIN 0.4 % (0.5-1.5); BG DEOXYHEMOGLOBIN 2.1 % (0.0-5.0); BG FRACTION INSPIRED OXYGEN 100; BG METHEMOGLOBIN 0.3 % (0.0-1.5); BG OXYGEN SATURATION 97.9 % (92.0-98.5); BG OXYHEMOGLOBIN 97.2 % (94.0-97.0); BG PCO2 50.7 mmHg (35.0-45.0); BG PH 7.469 (7.350-7.450); BG PO2 102.3 mmHg (75.0-100.0); BG SAMPLE SITE LEFT BRACHIAL; BG TOTAL HEMOGLOBIN 9.7 g/dL (12.0-18.0); BG VENT MODE HIGH FLOW
[2020-11-26] MEDS: MIDODRINE HCL 5MG TABLET JT SCH ×3 (09:13→17:40)
[2020-11-26] MEDS: AMIODARONE HCL 200 MG TABLET JT SCH ×2 (09:13→17:41)
[2020-11-26] MEDS: ENOXAPARIN 40MG/0.4ML SYR SUBCUT SCH (09:13)
[2020-11-26] MEDS: HALOPERIDOL 2MG TABLET JT SCH ×2 (09:13→22:22)
[2020-11-26] MEDS: DOCUSATE SODIUM SUGAR FREE 100MG/10ML UDC JT SCH (09:13)
[2020-11-26] MEDS: LIDOCAINE 5% PATCH TOP SCH (09:16)
[2020-11-26] MEDS ORDERED: METOPROLOL TARTRATE 50MG TABLET PO SCH (09:30)
[2020-11-26] MEDS ORDERED: SODIUM CHLORIDE 0.45% 500 ML IV NR (09:45)
[2020-11-26] MEDS ORDERED: SODIUM CHLORIDE 0.45% 1,000 ML IV SCH (12:00)
[2020-11-26] MEDS: DILTIAZEM HCL 125 MG in DEXT 5% WATER 100 ML IV SCH ×2 (14:30→22:25)
[2020-11-26 15:19] LABS: NUCLEATED RED BLOOD CELLS 7 /100 WBC; PLATELET ESTIMATE NORMAL
[2020-11-26] MEDS: METOPROLOL TARTRATE 50MG TABLET JT SCH (22:24)
[2020-11-26] MEDS: TOTAL PARENTERAL NUTRITION 1,600 ML IV SCH (22:31)
[2020-11-27] VITALS (23 sets, daily range): BP systolic 112–146; BP diastolic 66–90
[2020-11-27] MEDS: METHYLPREDNISOLONE SOD SUCC 40 MG/ML VIAL IV SCH ×4 (01:45→17:29)
[2020-11-27] MEDS: IPRATROPIUM BROMIDE (0.02%) 0.5MG/2.5ML NEB HHN SCH ×5 (04:46→22:55)
[2020-11-27] MEDS: MEROPENEM 500 MG in SODIUM CHLORIDE 0.9% 50 ML IV SCH ×3 (05:33→19:53)
[2020-11-27] MEDS: DILTIAZEM HCL 125 MG in DEXT 5% WATER 100 ML IV SCH ×2 (05:46→16:17)
[2020-11-27] MEDS: MORPHINE SULFATE 2 MG/ML CPJ (NOT FOR IM USE) IV PRN ×3 (06:18→20:14)
[2020-11-27 07:17] LABS: HEMATOCRIT. 33.9 % (42.0-52.0); HEMOGLOBIN. 10.4 g/dL (14.0-18.0); MEAN CORPUSCULAR VOLUME 85.2 fL (80.0-94.0); MEAN PLATELET VOLUME 8.7 fl (7.4-10.4); PLATELET 252 x1000/uL (130-400); RED BLOOD CELL COUNT 3.98 mill/uL (4.7-6.1); RED CELL DISTRIBUTION WIDTH 18.7 % (11.6-14.6)
[2020-11-27 07:36] LABS: CHLORIDE 110 mEq/L (98-107)
[2020-11-27] MEDS: DILTIAZEM HCL 5MG/ML 5ML VIAL IV PRN ×2 (08:14→09:18)
[2020-11-27] MEDS: LIDOCAINE 5% PATCH TOP SCH ×2 (09:19→09:24)
[2020-11-27] MEDS ORDERED: LIDOCAINE HCL 1% 20ML VIAL (Pyxis) INJ ONE (09:41)
[2020-11-27] MEDS ORDERED: LIDOCAINE HCL 2% JELLY 5ML ONE (09:41)
[2020-11-27] MEDS ORDERED: IOHEXOL-300 50 ML BOTTLE IV ONE (09:41)
[2020-11-27] MEDS ORDERED: FENTANYL CITRATE/PF 50MCG/ML 2ML VIAL ONE (10:04)
[2020-11-27] MEDS ORDERED: FENTANYL CITRATE/PF 50MCG/ML 2ML VIAL IV ONE (10:15)
[2020-11-27] MEDS: ENOXAPARIN 40MG/0.4ML SYR SUBCUT SCH (11:08)
[2020-11-27] MEDS: DOCUSATE SODIUM SUGAR FREE 100MG/10ML UDC JT SCH (11:08)
[2020-11-27] MEDS: HALOPERIDOL 2MG TABLET JT SCH ×2 (11:10→21:00)
[2020-11-27] MEDS: AMIODARONE HCL 200 MG TABLET JT SCH ×2 (11:11→17:29)
[2020-11-27] MEDS: METOPROLOL TARTRATE 50MG TABLET JT SCH ×2 (11:11→21:00)
[2020-11-27] MEDS: MIDODRINE HCL 5MG TABLET JT SCH ×3 (11:14→17:29)
[2020-11-27] MEDS ORDERED: TOTAL PARENTERAL NUTRITION 1,600 ML IV SCH (21:00)
[2020-11-27] MEDS ORDERED: IOHEXOL-350 100 ML BOTTLE ONE (22:09)
[2020-11-27 22:54] LABS: NUCLEATED RED BLOOD CELLS 3 /100 WBC; PLATELET ESTIMATE NORMAL
[2020-11-27] MEDS: FAT EMULSIONS 500 ML IV SCH (23:37)
[2020-11-28] VITALS (14 sets, daily range): BP systolic 119–142; BP diastolic 66–92
[2020-11-28] MEDS: ENOXAPARIN 60MG/0.6ML SYR SUBCUT SCH ×3 (00:17→23:19)
[2020-11-28] MEDS: METHYLPREDNISOLONE SOD SUCC 40 MG/ML VIAL IV SCH ×5 (00:28→23:17)
[2020-11-28] MEDS: DILTIAZEM HCL 125 MG in DEXT 5% WATER 100 ML IV SCH ×3 (00:51→19:44)
[2020-11-28] MEDS: HALOPERIDOL LACTATE 5MG/ML VIAL IM PRN (02:07)
[2020-11-28] MEDS: DILTIAZEM HCL 5MG/ML 5ML VIAL IV PRN ×6 (02:47→23:17)
[2020-11-28] MEDS: MORPHINE SULFATE 2 MG/ML CPJ (NOT FOR IM USE) IV PRN ×5 (03:54→20:13)
[2020-11-28] MEDS: IPRATROPIUM BROMIDE (0.02%) 0.5MG/2.5ML NEB HHN SCH ×4 (04:30→20:30)
[2020-11-28] MEDS: MEROPENEM 500 MG in SODIUM CHLORIDE 0.9% 50 ML IV SCH ×3 (04:30→19:51)
[2020-11-28 07:24] LABS: CHLORIDE 112 mEq/L (98-107)
[2020-11-28 07:38] LABS: HEMATOCRIT. 33.3 % (42.0-52.0); HEMOGLOBIN. 10.6 g/dL (14.0-18.0); MEAN CORPUSCULAR HEMOGLOBIN 28.2 pg (28.0-32.0); MEAN CORPUSCULAR VOLUME 88.8 fL (80.0-94.0); MEAN PLATELET VOLUME 9.2 fl (7.4-10.4); PLATELET 228 x1000/uL (130-400); RED BLOOD CELL COUNT 3.75 mill/uL (4.7-6.1); RED CELL DISTRIBUTION WIDTH 19.4 % (11.6-14.6)
[2020-11-28] MEDS: DOCUSATE SODIUM SUGAR FREE 100MG/10ML UDC JT SCH (09:19)
[2020-11-28] MEDS: MIDODRINE HCL 5MG TABLET JT SCH ×3 (09:21→17:11)
[2020-11-28] MEDS: HALOPERIDOL 2MG TABLET JT SCH ×2 (09:21→21:00)
[2020-11-28] MEDS: AMIODARONE HCL 200 MG TABLET JT SCH ×2 (09:21→17:00)
[2020-11-28] MEDS: METOPROLOL TARTRATE 50MG TABLET JT SCH ×2 (09:21→21:00)
[2020-11-28] MEDS ORDERED: DEXTROSE 50% WATER 50ML SYRINGE IV PRN ×2 (17:00)
[2020-11-28 17:19] LABS: BG BASE EXCESS 12.1 mmol/L (-2.0-2.0); BG CARBOXYHEMOGLOBIN 0.5 % (0.5-1.5); BG DEOXYHEMOGLOBIN 12.5 % (0.0-5.0); BG FRACTION INSPIRED OXYGEN 100; BG HCO3 ACT 38.7 mmol/L (22.0-26.0); BG METHEMOGLOBIN 0.1 % (0.0-1.5); BG OXYGEN SATURATION 87.4 % (92.0-98.5); BG OXYHEMOGLOBIN 86.9 % (94.0-97.0); BG PCO2 61.3 mmHg (35.0-45.0); BG PH 7.418 (7.350-7.450); BG PO2 54.1 mmHg (75.0-100.0); BG SAMPLE SITE RIGHT RADIAL; BG TOTAL HEMOGLOBIN 11.1 g/dL (12.0-18.0); BG VENT MODE HIGH FLOW
[2020-11-28] MEDS: INSULIN LISPRO 100 UNITS/ML SUBCUT SCH ×2 (17:19→22:05)
[2020-11-28] MEDS: TOTAL PARENTERAL NUTRITION 1,600 ML IV SCH (21:39)
[2020-11-28] MEDS: BLOOD SUGAR DIAGNOSTIC STRIP TEST SCH (21:55)
[2020-11-29] VITALS (50 sets, daily range): BP systolic 68–155; BP diastolic 42–115
[2020-11-29] MEDS: MORPHINE SULFATE 2 MG/ML CPJ (NOT FOR IM USE) IV PRN ×4 (00:30→14:02)
[2020-11-29] MEDS: IPRATROPIUM BROMIDE (0.02%) 0.5MG/2.5ML NEB HHN SCH ×6 (00:40→20:43)
[2020-11-29] MEDS: DILTIAZEM HCL 5MG/ML 5ML VIAL IV PRN (03:07)
[2020-11-29] MEDS: DILTIAZEM HCL 125 MG in DEXT 5% WATER 100 ML IV SCH ×3 (03:08→17:00)
[2020-11-29] MEDS: MEROPENEM 500 MG in SODIUM CHLORIDE 0.9% 50 ML IV SCH ×3 (03:22→21:24)
[2020-11-29] MEDS ORDERED: DIGOXIN 500MCG/2ML AMP IV ONE (05:15)
[2020-11-29 05:17] LABS: NUCLEATED RED BLOOD CELLS 10 /100 WBC
[2020-11-29 05:18] LABS: PLATELET ESTIMATE NORMAL
[2020-11-29] MEDS ORDERED: DIGOXIN 500MCG/2ML AMP IV NR (05:30)
[2020-11-29] MEDS: METHYLPREDNISOLONE SOD SUCC 40 MG/ML VIAL IV SCH ×3 (05:30→18:17)
[2020-11-29] MEDS: BLOOD SUGAR DIAGNOSTIC STRIP TEST SCH ×4 (05:46→21:24)
[2020-11-29] MEDS ORDERED: ETOMIDATE 2MG/ML 10ML VIAL IV ONE (07:59)
[2020-11-29] MEDS ORDERED: SUCCINYLCHOLINE CHLORIDE 200MG/10ML IV ONE (07:59)
[2020-11-29] MEDS: AMIODARONE HCL 200 MG TABLET JT SCH ×2 (09:00→17:00)
[2020-11-29] MEDS: LIDOCAINE 5% PATCH TOP SCH (09:00)
[2020-11-29] MEDS: METOPROLOL TARTRATE 50MG TABLET JT SCH ×2 (09:00→21:00)
[2020-11-29] MEDS: HALOPERIDOL 2MG TABLET JT SCH ×2 (09:00→21:00)
[2020-11-29] MEDS: DOCUSATE SODIUM SUGAR FREE 100MG/10ML UDC JT SCH (09:00)
[2020-11-29 09:14] LABS: HEMATOCRIT. 31.9 % (42.0-52.0); HEMOGLOBIN. 9.6 g/dL (14.0-18.0); MEAN CORPUSCULAR HEMOGLOBIN 26.3 pg (28.0-32.0); MEAN CORPUSCULAR VOLUME 87.1 fL (80.0-94.0); MEAN PLATELET VOLUME 9.7 fl (7.4-10.4); PLATELET 229 x1000/uL (130-400); RED BLOOD CELL COUNT 3.67 mill/uL (4.7-6.1); RED CELL DISTRIBUTION WIDTH 19.4 % (11.6-14.6)
[2020-11-29 09:22] LABS: CHLORIDE 113 mEq/L (98-107)
[2020-11-29] MEDS ORDERED: DIGOXIN 500MCG/2ML AMP IV PRN (10:00)
[2020-11-29] MEDS: INSULIN LISPRO 100 UNITS/ML SUBCUT SCH ×4 (10:27→21:00)
[2020-11-29 11:55] LABS: BG BASE EXCESS 14.1 mmol/L (-2.0-2.0); BG CARBOXYHEMOGLOBIN 0.8 % (0.5-1.5); BG DEOXYHEMOGLOBIN 16.7 % (0.0-5.0); BG FRACTION INSPIRED OXYGEN 100; BG HCO3 ACT 41.7 mmol/L (22.0-26.0); BG METHEMOGLOBIN 0.3 % (0.0-1.5); BG OXYGEN SATURATION 83.1 % (92.0-98.5); BG OXYHEMOGLOBIN 82.2 % (94.0-97.0); BG PCO2 70.8 mmHg (35.0-45.0); BG PH 7.388 (7.350-7.450); BG PO2 51.3 mmHg (75.0-100.0); BG SAMPLE SITE RIGHT RADIAL; BG TOTAL HEMOGLOBIN 10.9 g/dL (12.0-18.0); BG VENT MODE HIGH FLOW
[2020-11-29 12:16] LABS: NUCLEATED RED BLOOD CELLS 8 /100 WBC; PLATELET ESTIMATE NORMAL
[2020-11-29] MEDS: MIDODRINE HCL 5MG TABLET JT SCH ×2 (13:00→17:00)
[2020-11-29] MEDS: ENOXAPARIN 60MG/0.6ML SYR SUBCUT SCH ×2 (13:43→23:39)
[2020-11-29 14:10] LABS: BG BASE EXCESS 13.8 mmol/L (-2.0-2.0); BG CARBOXYHEMOGLOBIN 0.7 % (0.5-1.5); BG DEOXYHEMOGLOBIN 20.3 % (0.0-5.0); BG FRACTION INSPIRED OXYGEN 100; BG HCO3 ACT 40.8 mmol/L (22.0-26.0); BG METHEMOGLOBIN 0.2 % (0.0-1.5); BG OXYGEN SATURATION 79.5 % (92.0-98.5); BG OXYHEMOGLOBIN 78.8 % (94.0-97.0); BG PCO2 65.7 mmHg (35.0-45.0); BG PH 7.411 (7.350-7.450); BG PO2 45.3 mmHg (75.0-100.0); BG SAMPLE SITE RIGHT RADIAL; BG TOTAL HEMOGLOBIN 10.8 g/dL (12.0-18.0); BG VENT MODE HIGH FLOW
[2020-11-29] MEDS ORDERED: SENNOSIDES/DOCUSATE SOD 8.6/50MG TABLET JT PRN (15:00)
[2020-11-29] MEDS ORDERED: PROPOFOL 10MG/ML 100ML 100 ML IV PRN (15:25)
[2020-11-29 16:11] LABS: BG CARBOXYHEMOGLOBIN 0.2 % (0.5-1.5); BG DEOXYHEMOGLOBIN 2.2 % (0.0-5.0); BG FRACTION INSPIRED OXYGEN 100; BG METHEMOGLOBIN 0.2 % (0.0-1.5); BG OXYGEN SATURATION 97.8 % (92.0-98.5); BG OXYHEMOGLOBIN 97.4 % (94.0-97.0); BG PCO2 59.8 mmHg (35.0-45.0); BG PH 7.454 (7.350-7.450); BG PO2 106.3 mmHg (75.0-100.0); BG SAMPLE SITE RIGHT RADIAL; BG TOTAL HEMOGLOBIN 9.7 g/dL (12.0-18.0); BG VENT MODE VENT - AC
[2020-11-29] MEDS: PHENYLEPHRINE 100 MG in DEXT 5% WATER 240 ML IV PRN (16:12)
[2020-11-29] MEDS: PROPOFOL 10MG/ML 100ML 100 ML IV PRN (16:14)
[2020-11-29] MEDS ORDERED: DIGOXIN 500MCG/2ML AMP IV SCH (18:00)
[2020-11-29] MEDS ORDERED: MIDAZOLAM 100MG/100ML PMX 100 ML IV PRN (18:00)
[2020-11-29] MEDS: MIDAZOLAM HCL 100 MG in SODIUM CHLORIDE 0.9% 100 ML IV PRN (18:29)
[2020-11-29] MEDS: FENTANYL CITRATE/PF 2,500 MCG in SODIUM CHLORIDE 0.9% 200 ML IV PRN (18:30)
[2020-11-29] MEDS: TOTAL PARENTERAL NUTRITION 1,600 ML IV SCH (21:54)
[2020-11-30] VITALS (135 sets, daily range): BP systolic 88–154; BP diastolic 50–93
[2020-11-30] MEDS: IPRATROPIUM BROMIDE (0.02%) 0.5MG/2.5ML NEB HHN SCH ×6 (00:18→21:02)
[2020-11-30] MEDS: DILTIAZEM HCL 125 MG in DEXT 5% WATER 100 ML IV SCH ×3 (01:20→18:00)
[2020-11-30] MEDS: PROPOFOL 10MG/ML 100ML 100 ML IV PRN ×2 (02:58→08:07)
[2020-11-30 05:08] LABS: BG BASE EXCESS 15.9 mmol/L (-2.0-2.0); BG CARBOXYHEMOGLOBIN 0.4 % (0.5-1.5); BG DEOXYHEMOGLOBIN 0.3 % (0.0-5.0); BG FRACTION INSPIRED OXYGEN 100; BG HCO3 ACT 36.9 mmol/L (22.0-26.0); BG METHEMOGLOBIN 0.3 % (0.0-1.5); BG OXYGEN SATURATION 99.7 % (92.0-98.5); BG PCO2 31.2 mmHg (35.0-45.0); BG PH 7.691 (7.350-7.450); BG PO2 447.7 mmHg (75.0-100.0); BG SAMPLE SITE RIGHT FEMORAL; BG TOTAL HEMOGLOBIN 9.4 g/dL (12.0-18.0); BG VENT MODE VENT - AC
[2020-11-30] MEDS: MIDAZOLAM HCL 100 MG in SODIUM CHLORIDE 0.9% 100 ML IV PRN (05:18)
[2020-11-30] MEDS: FENTANYL CITRATE/PF 2,500 MCG in SODIUM CHLORIDE 0.9% 200 ML IV PRN ×2 (05:19→12:22)
[2020-11-30] MEDS ORDERED: VECURONIUM BROMIDE 50 MG in DEXTROSE 5% WATER 50 ML IV PRN (05:45)
[2020-11-30 06:37] LABS: HEMATOCRIT. 29.6 % (42.0-52.0); HEMOGLOBIN. 8.7 g/dL (14.0-18.0); MEAN CORPUSCULAR HEMOGLOBIN 26.1 pg (28.0-32.0); MEAN PLATELET VOLUME 10.4 fl (7.4-10.4); PLATELET 142 x1000/uL (130-400); RED BLOOD CELL COUNT 3.33 mill/uL (4.7-6.1); RED CELL DISTRIBUTION WIDTH 19.2 % (11.6-14.6)
[2020-11-30] MEDS: METHYLPREDNISOLONE SOD SUCC 40 MG/ML VIAL IV SCH ×5 (06:46→23:03)
[2020-11-30] MEDS: MEROPENEM 500 MG in SODIUM CHLORIDE 0.9% 50 ML IV SCH ×3 (06:46→21:01)
[2020-11-30 07:37] LABS: NUCLEATED RED BLOOD CELLS 5 /100 WBC; PLATELET ESTIMATE NORMAL
[2020-11-30 08:14] LABS: CHLORIDE 116 mEq/L (98-107)
[2020-11-30] MEDS: BLOOD SUGAR DIAGNOSTIC STRIP TEST SCH ×4 (08:18→21:02)
[2020-11-30] MEDS: INSULIN LISPRO 100 UNITS/ML SUBCUT SCH ×4 (08:29→21:00)
[2020-11-30 08:43] LABS: BG BASE EXCESS 11.9 mmol/L (-2.0-2.0); BG CARBOXYHEMOGLOBIN 0.4 % (0.5-1.5); BG DEOXYHEMOGLOBIN 0.3 % (0.0-5.0); BG FRACTION INSPIRED OXYGEN 100; BG HCO3 ACT 32.3 mmol/L (22.0-26.0); BG METHEMOGLOBIN 0.3 % (0.0-1.5); BG OXYGEN SATURATION 99.7 % (92.0-98.5); BG PCO2 26.9 mmHg (35.0-45.0); BG PH 7.697 (7.350-7.450); BG PO2 400.1 mmHg (75.0-100.0); BG SAMPLE SITE RIGHT RADIAL; BG TOTAL HEMOGLOBIN 9.3 g/dL (12.0-18.0); BG VENT MODE VENT- PRVC
[2020-11-30] MEDS: METOPROLOL TARTRATE 50MG TABLET JT SCH (09:00)
[2020-11-30] MEDS: AMIODARONE HCL 200 MG TABLET JT SCH ×2 (09:00→17:00)
[2020-11-30] MEDS: MIDODRINE HCL 5MG TABLET JT SCH ×3 (09:00→17:00)
[2020-11-30] MEDS: LIDOCAINE 5% PATCH TOP SCH (09:00)
[2020-11-30] MEDS: DOCUSATE SODIUM SUGAR FREE 100MG/10ML UDC JT SCH (09:00)
[2020-11-30] MEDS: HALOPERIDOL 2MG TABLET JT SCH ×2 (09:00→21:00)
[2020-11-30 09:32] LABS: PHOSPHORUS 0.7 mg/dL (2.5-4.9)
[2020-11-30] MEDS ORDERED: ACETAZOLAMIDE SODIUM 500MG/VIAL IV SCH (10:00)
[2020-11-30 11:06] LABS: BG BASE EXCESS 11.6 mmol/L (-2.0-2.0); BG CARBOXYHEMOGLOBIN 0.2 % (0.5-1.5); BG DEOXYHEMOGLOBIN 0.6 % (0.0-5.0); BG FRACTION INSPIRED OXYGEN 100; BG METHEMOGLOBIN 0.4 % (0.0-1.5); BG OXYGEN SATURATION 99.4 % (92.0-98.5); BG OXYHEMOGLOBIN 98.8 % (94.0-97.0); BG PCO2 41.1 mmHg (35.0-45.0); BG PH 7.548 (7.350-7.450); BG PO2 240.9 mmHg (75.0-100.0); BG SAMPLE SITE RIGHT RADIAL; BG TOTAL HEMOGLOBIN 9.9 g/dL (12.0-18.0); BG VENT MODE VENT- PRVC
[2020-11-30] MEDS: ENOXAPARIN 60MG/0.6ML SYR SUBCUT SCH ×2 (11:28→22:18)
[2020-11-30] MEDS ORDERED: POTASSIUM PHOS,M-BASIC-D-BASIC 20 MMOL in DEXT 5% WATER 243.3333 ML IV SCH (12:00)
[2020-11-30] MEDS: FAT EMULSIONS 500 ML IV SCH (21:01)
[2020-11-30] MEDS ORDERED: VANCOMYCIN 1250MG in DEXTROSE 5% WATER 250ML IV NR (21:30)
[2020-11-30] MEDS: TOTAL PARENTERAL NUTRITION 1,600 ML IV SCH (23:49)
[2020-12-01] VITALS (84 sets, daily range): BP systolic 98–142; BP diastolic 64–96
[2020-12-01] MEDS: IPRATROPIUM BROMIDE (0.02%) 0.5MG/2.5ML NEB HHN SCH ×7 (00:44→23:32)
[2020-12-01] MEDS: DILTIAZEM HCL 125 MG in DEXT 5% WATER 100 ML IV SCH ×2 (02:20→10:40)
[2020-12-01] MEDS: MEROPENEM 500 MG in SODIUM CHLORIDE 0.9% 50 ML IV SCH ×3 (05:27→23:14)
[2020-12-01] MEDS: METHYLPREDNISOLONE SOD SUCC 40 MG/ML VIAL IV SCH ×4 (05:28→23:14)
[2020-12-01 06:11] LABS: HEMATOCRIT. 31.6 % (42.0-52.0); MEAN CORPUSCULAR HEMOGLOBIN 27.7 pg (28.0-32.0); MEAN CORPUSCULAR VOLUME 87.6 fL (80.0-94.0); MEAN PLATELET VOLUME 10.1 fl (7.4-10.4); PLATELET 156 x1000/uL (130-400); RED CELL DISTRIBUTION WIDTH 19.3 % (11.6-14.6)
[2020-12-01 06:16] LABS: CHLORIDE 115 mEq/L (98-107)
[2020-12-01] MEDS: BLOOD SUGAR DIAGNOSTIC STRIP TEST SCH ×4 (07:50→21:00)
[2020-12-01] MEDS: FENTANYL CITRATE/PF 2,500 MCG in SODIUM CHLORIDE 0.9% 200 ML IV PRN (08:04)
[2020-12-01] MEDS: MIDAZOLAM HCL 100 MG in SODIUM CHLORIDE 0.9% 100 ML IV PRN (08:05)
[2020-12-01] MEDS: INSULIN LISPRO 100 UNITS/ML SUBCUT SCH ×4 (08:20→21:00)
[2020-12-01 08:30] LABS: BG BASE EXCESS 9.4 mmol/L (-2.0-2.0); BG DEOXYHEMOGLOBIN 1.3 % (0.0-5.0); BG FRACTION INSPIRED OXYGEN 80; BG HCO3 ACT 34.4 mmol/L (22.0-26.0); BG METHEMOGLOBIN 0.4 % (0.0-1.5); BG OXYGEN SATURATION 98.7 % (92.0-98.5); BG OXYHEMOGLOBIN 98.3 % (94.0-97.0); BG PCO2 49.1 mmHg (35.0-45.0); BG PH 7.463 (7.350-7.450); BG PO2 133.2 mmHg (75.0-100.0); BG SAMPLE SITE RIGHT RADIAL; BG VENT MODE VENT- PRVC
[2020-12-01 08:51] LABS: NUCLEATED RED BLOOD CELLS 8 /100 WBC; PLATELET ESTIMATE NORMAL
[2020-12-01] MEDS: HALOPERIDOL 2MG TABLET JT SCH ×2 (09:00→21:00)
[2020-12-01] MEDS: AMIODARONE HCL 200 MG TABLET JT SCH ×2 (09:00→17:00)
[2020-12-01] MEDS: LIDOCAINE 5% PATCH TOP SCH (09:00)
[2020-12-01] MEDS: MIDODRINE HCL 5MG TABLET JT SCH ×3 (09:00→17:00)
[2020-12-01] MEDS: DOCUSATE SODIUM SUGAR FREE 100MG/10ML UDC JT SCH (09:00)
[2020-12-01] MEDS: ENOXAPARIN 60MG/0.6ML SYR SUBCUT SCH ×2 (12:09→23:13)
[2020-12-01] MEDS: VANCOMYCIN 1 G PREMIX 200 ML IV SCH ×2 (12:54→23:14)
[2020-12-01] MEDS: TOTAL PARENTERAL NUTRITION 1,600 ML IV SCH (23:16)
[2020-12-02] VITALS (96 sets, daily range): BP systolic 11–131; BP diastolic 26–81
[2020-12-02] MEDS: MIDAZOLAM HCL 100 MG in SODIUM CHLORIDE 0.9% 100 ML IV PRN (01:55)
[2020-12-02] MEDS: IPRATROPIUM BROMIDE (0.02%) 0.5MG/2.5ML NEB HHN SCH ×6 (04:00→23:50)
[2020-12-02 06:11] LABS: CHLORIDE 115 mEq/L (98-107)
[2020-12-02] MEDS: MEROPENEM 500 MG in SODIUM CHLORIDE 0.9% 50 ML IV SCH ×3 (06:26→21:55)
[2020-12-02] MEDS: METHYLPREDNISOLONE SOD SUCC 40 MG/ML VIAL IV SCH ×3 (06:26→17:57)
[2020-12-02] MEDS ORDERED: BISACODYL 10MG SUPP PR PRN (07:15)
[2020-12-02] MEDS: FENTANYL CITRATE/PF 2,500 MCG in SODIUM CHLORIDE 0.9% 200 ML IV PRN (07:42)
[2020-12-02] MEDS: BLOOD SUGAR DIAGNOSTIC STRIP TEST SCH ×4 (07:50→21:00)
[2020-12-02] MEDS: INSULIN LISPRO 100 UNITS/ML SUBCUT SCH ×4 (08:20→21:00)
[2020-12-02] MEDS: HALOPERIDOL 2MG TABLET JT SCH ×2 (09:00→21:00)
[2020-12-02] MEDS: DOCUSATE SODIUM SUGAR FREE 100MG/10ML UDC JT SCH (09:00)
[2020-12-02] MEDS: MIDODRINE HCL 5MG TABLET JT SCH ×3 (09:00→17:00)
[2020-12-02] MEDS: AMIODARONE HCL 200 MG TABLET JT SCH ×2 (09:00→17:00)
[2020-12-02 09:05] LABS: BG BASE EXCESS 8.2 mmol/L (-2.0-2.0); BG CARBOXYHEMOGLOBIN 0.3 % (0.5-1.5); BG DEOXYHEMOGLOBIN 16.1 % (0.0-5.0); BG FRACTION INSPIRED OXYGEN 50; BG METHEMOGLOBIN 0.2 % (0.0-1.5); BG OXYGEN SATURATION 83.8 % (92.0-98.5); BG OXYHEMOGLOBIN 83.4 % (94.0-97.0); BG PCO2 54.2 mmHg (35.0-45.0); BG PH 7.415 (7.350-7.450); BG PO2 49.1 mmHg (75.0-100.0); BG SAMPLE SITE LEFT RADIAL; BG TOTAL HEMOGLOBIN 9.8 g/dL (12.0-18.0); BG VENT MODE VENT- PRVC
[2020-12-02 09:08] LABS: PHOSPHORUS 3.4 mg/dL (2.5-4.9)
[2020-12-02 10:04] LABS: HEMOGLOBIN. 8.6 g/dL (14.0-18.0); MEAN CORPUSCULAR HEMOGLOBIN 26.7 pg (28.0-32.0); MEAN CORPUSCULAR VOLUME 87.4 fL (80.0-94.0); PLATELET 118 x1000/uL (130-400); RED BLOOD CELL COUNT 3.21 mill/uL (4.7-6.1); RED CELL DISTRIBUTION WIDTH 19.4 % (11.6-14.6)
[2020-12-02] MEDS: LIDOCAINE 5% PATCH TOP SCH (10:24)
[2020-12-02] MEDS: VANCOMYCIN 1 G PREMIX 200 ML IV SCH ×2 (10:27→21:45)
[2020-12-02 11:47] LABS: NUCLEATED RED BLOOD CELLS 1 /100 WBC; PLATELET ESTIMATE SLIGHTLY DECREASED
[2020-12-02] MEDS: ENOXAPARIN 60MG/0.6ML SYR SUBCUT SCH (12:37)
[2020-12-02] MEDS: FAT EMULSIONS 500 ML IV SCH (21:33)
[2020-12-02] MEDS: TOTAL PARENTERAL NUTRITION 1,600 ML IV SCH (21:34)
[2020-12-02] MEDS: ENOXAPARIN 80MG/0.8ML SYR SUBCUT SCH (21:55)
[2020-12-03] VITALS (95 sets, daily range): BP systolic 65–160; BP diastolic 42–105
[2020-12-03] MEDS: METHYLPREDNISOLONE SOD SUCC 40 MG/ML VIAL IV SCH ×4 (00:14→18:36)
[2020-12-03] MEDS: BLOOD SUGAR DIAGNOSTIC STRIP TEST SCH ×4 (00:19→18:01)
[2020-12-03] MEDS: INSULIN LISPRO 100 UNITS/ML SUBCUT SCH ×4 (00:22→18:00)
[2020-12-03] MEDS: MIDAZOLAM HCL 100 MG in SODIUM CHLORIDE 0.9% 100 ML IV PRN ×2 (01:10→15:07)
[2020-12-03] MEDS: PHENYLEPHRINE 100 MG in DEXT 5% WATER 240 ML IV PRN ×2 (01:16→15:06)
[2020-12-03] MEDS: IPRATROPIUM BROMIDE (0.02%) 0.5MG/2.5ML NEB HHN SCH ×5 (04:02→20:28)
[2020-12-03] MEDS: MEROPENEM 500 MG in SODIUM CHLORIDE 0.9% 50 ML IV SCH ×3 (06:18→22:37)
[2020-12-03 06:41] LABS: HEMATOCRIT. 31.4 % (42.0-52.0); HEMOGLOBIN. 9.8 g/dL (14.0-18.0); MEAN CORPUSCULAR HEMOGLOBIN 28.8 pg (28.0-32.0); MEAN CORPUSCULAR VOLUME 92.3 fL (80.0-94.0); MEAN PLATELET VOLUME 10.3 fl (7.4-10.4); RED CELL DISTRIBUTION WIDTH 20.2 % (11.6-14.6)
[2020-12-03] MEDS ORDERED: NOREPINEPHRINE 32 MG in DEXT 5% WATER 218 ML IV PRN (08:00)
[2020-12-03] MEDS: LIDOCAINE 5% PATCH TOP SCH (08:41)
[2020-12-03] MEDS: VANCOMYCIN 1 G PREMIX 200 ML IV SCH ×2 (08:41→21:00)
[2020-12-03] MEDS: HALOPERIDOL 2MG TABLET JT SCH ×2 (09:00→21:00)
[2020-12-03] MEDS: AMIODARONE HCL 200 MG TABLET JT SCH ×2 (09:00→17:00)
[2020-12-03] MEDS: MIDODRINE HCL 5MG TABLET JT SCH ×3 (09:00→17:00)
[2020-12-03] MEDS: DOCUSATE SODIUM SUGAR FREE 100MG/10ML UDC JT SCH (09:00)
[2020-12-03] MEDS: ENOXAPARIN 80MG/0.8ML SYR SUBCUT SCH ×2 (09:52→21:01)
[2020-12-03 10:09] LABS: BG BASE EXCESS 0.1 mmol/L (-2.0-2.0); BG CARBOXYHEMOGLOBIN 0.3 % (0.5-1.5); BG DEOXYHEMOGLOBIN 10.3 % (0.0-5.0); BG FRACTION INSPIRED OXYGEN 1005; BG HCO3 ACT 28.2 mmol/L (22.0-26.0); BG METHEMOGLOBIN 0.5 % (0.0-1.5); BG OXYGEN SATURATION 89.6 % (92.0-98.5); BG OXYHEMOGLOBIN 88.9 % (94.0-97.0); BG PCO2 65.1 mmHg (35.0-45.0); BG PH 7.254 (7.350-7.450); BG PO2 65.9 mmHg (75.0-100.0); BG SAMPLE SITE RIGHT RADIAL; BG VENT MODE PRVC
[2020-12-03 10:59] LABS: CHLORIDE 111 mEq/L (98-107)
[2020-12-03 12:56] LABS: NUCLEATED RED BLOOD CELLS 4 /100 WBC
[2020-12-03 12:57] LABS: PLATELET ESTIMATE NORMAL
[2020-12-03 12:59] LABS: PLATELET 249 x1000/uL (130-400)
[2020-12-03] MEDS: TOTAL PARENTERAL NUTRITION 1,600 ML IV SCH (21:02)
[2020-12-04] VITALS (97 sets, daily range): BP systolic 81–153; BP diastolic 54–110
[2020-12-04] MEDS: BLOOD SUGAR DIAGNOSTIC STRIP TEST SCH ×4 (00:01→18:24)
[2020-12-04] MEDS: METHYLPREDNISOLONE SOD SUCC 40 MG/ML VIAL IV SCH ×4 (00:01→18:30)
[2020-12-04] MEDS: IPRATROPIUM BROMIDE (0.02%) 0.5MG/2.5ML NEB HHN SCH ×6 (00:16→20:12)
[2020-12-04] MEDS: MEROPENEM 500 MG in SODIUM CHLORIDE 0.9% 50 ML IV SCH ×2 (05:47→13:21)
[2020-12-04] MEDS: INSULIN LISPRO 100 UNITS/ML SUBCUT SCH ×4 (05:52→18:27)
[2020-12-04] MEDS: PHENYLEPHRINE 100 MG in DEXT 5% WATER 240 ML IV PRN (05:52)
[2020-12-04 06:08] LABS: HEMATOCRIT. 28.4 % (42.0-52.0); HEMOGLOBIN. 8.4 g/dL (14.0-18.0); MEAN CORPUSCULAR HEMOGLOBIN 25.7 pg (28.0-32.0); MEAN CORPUSCULAR VOLUME 86.5 fL (80.0-94.0); MEAN PLATELET VOLUME 11.5 fl (7.4-10.4); PLATELET 77 x1000/uL (130-400); RED BLOOD CELL COUNT 3.29 mill/uL (4.7-6.1); RED CELL DISTRIBUTION WIDTH 19.5 % (11.6-14.6)
[2020-12-04] MEDS: ENOXAPARIN 80MG/0.8ML SYR SUBCUT SCH (09:00)
[2020-12-04] MEDS: AMIODARONE HCL 200 MG TABLET JT SCH ×2 (09:00→17:00)
[2020-12-04] MEDS: DOCUSATE SODIUM SUGAR FREE 100MG/10ML UDC JT SCH (09:00)
[2020-12-04] MEDS: MIDODRINE HCL 5MG TABLET JT SCH ×3 (09:00→17:00)
[2020-12-04] MEDS: HALOPERIDOL 2MG TABLET JT SCH ×2 (09:00→21:00)
[2020-12-04 09:20] LABS: BG BASE EXCESS -0.1 mmol/L (-2.0-2.0); BG CARBOXYHEMOGLOBIN 0.7 % (0.5-1.5); BG DEOXYHEMOGLOBIN 8.9 % (0.0-5.0); BG FRACTION INSPIRED OXYGEN 100; BG METHEMOGLOBIN 0.2 % (0.0-1.5); BG OXYHEMOGLOBIN 90.2 % (94.0-97.0); BG PCO2 49.3 mmHg (35.0-45.0); BG PO2 66.7 mmHg (75.0-100.0); BG SAMPLE SITE RIGHT RADIAL; BG TOTAL HEMOGLOBIN 9.4 g/dL (12.0-18.0); BG VENT MODE VENT - AC
[2020-12-04] MEDS: LIDOCAINE 5% PATCH TOP SCH (09:56)
[2020-12-04] MEDS: FENTANYL CITRATE/PF 2,500 MCG in SODIUM CHLORIDE 0.9% 200 ML IV PRN (13:18)
[2020-12-04 15:35] LABS: NUCLEATED RED BLOOD CELLS 40 /100 WBC; PLATELET ESTIMATE DECREASED
[2020-12-04] MEDS ORDERED: FENTANYL CITRATE/PF 2,500 MCG in SODIUM CHLORIDE 0.9% 200 ML IV PRN (19:30)
[2020-12-04] MEDS: FAT EMULSIONS 500 ML IV SCH (22:18)
[2020-12-04] MEDS: TOTAL PARENTERAL NUTRITION 1,600 ML IV SCH (22:20)
[2020-12-05] VITALS (95 sets, daily range): BP systolic 60–136; BP diastolic 23–112
[2020-12-05] MEDS: IPRATROPIUM BROMIDE (0.02%) 0.5MG/2.5ML NEB HHN SCH ×6 (00:08→20:23)
[2020-12-05] MEDS: BLOOD SUGAR DIAGNOSTIC STRIP TEST SCH ×5 (00:52→23:36)
[2020-12-05] MEDS: METHYLPREDNISOLONE SOD SUCC 40 MG/ML VIAL IV SCH ×5 (00:52→23:41)
[2020-12-05] MEDS: INSULIN LISPRO 100 UNITS/ML SUBCUT SCH ×5 (00:54→23:42)
[2020-12-05] MEDS: MIDAZOLAM HCL 100 MG in SODIUM CHLORIDE 0.9% 100 ML IV PRN (06:33)
[2020-12-05] MEDS: MEROPENEM 500 MG in SODIUM CHLORIDE 0.9% 50 ML IV SCH ×2 (06:46→17:34)
[2020-12-05] MEDS ORDERED: MIDAZOLAM HCL 100 MG in SODIUM CHLORIDE 0.9% 100 ML IV PRN (07:15)
[2020-12-05 07:42] LABS: HEMATOCRIT. 30.9 % (42.0-52.0); HEMOGLOBIN. 9.3 g/dL (14.0-18.0); MEAN CORPUSCULAR HEMOGLOBIN 25.9 pg (28.0-32.0); RED CELL DISTRIBUTION WIDTH 19.7 % (11.6-14.6)
[2020-12-05] MEDS ORDERED: DILTIAZEM HCL 125 MG in DEXT 5% WATER 100 ML IV PRN (08:00)
[2020-12-05] MEDS: PHENYLEPHRINE 100 MG in DEXT 5% WATER 240 ML IV PRN ×3 (08:22→15:35)
[2020-12-05] MEDS: DOCUSATE SODIUM SUGAR FREE 100MG/10ML UDC JT SCH (08:51)
[2020-12-05] MEDS: MIDODRINE HCL 5MG TABLET JT SCH ×3 (08:53→16:20)
[2020-12-05] MEDS: HALOPERIDOL 2MG TABLET JT SCH ×2 (08:53→20:05)
[2020-12-05] MEDS: AMIODARONE HCL 200 MG TABLET JT SCH ×2 (08:53→16:20)
[2020-12-05] MEDS: LIDOCAINE 5% PATCH TOP SCH (09:48)
[2020-12-05 10:06] LABS: PLATELET ESTIMATE NORMAL
[2020-12-05 10:09] LABS: NUCLEATED RED BLOOD CELLS 29 /100 WBC
[2020-12-05 10:10] LABS: PLATELET 141 x1000/uL (130-400)
[2020-12-05 10:11] LABS: MEAN PLATELET VOLUME 10.8 fl (7.4-10.4)
[2020-12-05 10:28] LABS: BG BASE EXCESS -9.2 mmol/L (-2.0-2.0); BG DEOXYHEMOGLOBIN 5.6 % (0.0-5.0); BG FRACTION INSPIRED OXYGEN 100; BG HCO3 ACT 20.5 mmol/L (22.0-26.0); BG METHEMOGLOBIN 0.5 % (0.0-1.5); BG OXYGEN SATURATION 94.3 % (92.0-98.5); BG OXYHEMOGLOBIN 92.9 % (94.0-97.0); BG PCO2 70.8 mmHg (35.0-45.0); BG PO2 96.5 mmHg (75.0-100.0); BG SAMPLE SITE RIGHT RADIAL; BG VENT MODE VENT - PRVC
[2020-12-05] MEDS ORDERED: SODIUM BICARBONATE 8.4% 1 MEQ/ML 50ML SYR IV NR (11:00)
[2020-12-05 12:17] LABS: BG CARBOXYHEMOGLOBIN 0.1 % (0.5-1.5); BG DEOXYHEMOGLOBIN 2.4 % (0.0-5.0); BG FRACTION INSPIRED OXYGEN 100; BG HCO3 ACT 24.5 mmol/L (22.0-26.0); BG METHEMOGLOBIN 0.3 % (0.0-1.5); BG OXYGEN SATURATION 97.6 % (92.0-98.5); BG OXYHEMOGLOBIN 97.2 % (94.0-97.0); BG PH 7.251 (7.350-7.450); BG PO2 114.1 mmHg (75.0-100.0); BG SAMPLE SITE RIGHT RADIAL; BG TOTAL HEMOGLOBIN 9.3 g/dL (12.0-18.0); BG VENT MODE VENT - PRVC
[2020-12-05] MEDS ORDERED: SODIUM BICARBONATE 8.4% 1 MEQ/ML 50ML SYR IV ONE (13:00)
[2020-12-05] MEDS ORDERED: SODIUM CHLORIDE 0.9% 250 ML IV SCH ×2 (13:00→16:15)
[2020-12-05] MEDS ORDERED: SODIUM POLYSTYRENE SULFONATE 15 G/60 ML BOT PO NR (14:30)
[2020-12-05] MEDS ORDERED: DEXT 5%/0.9% NACL 1,000 ML IV SCH (16:45)
[2020-12-05 17:32] LABS: BG BASE EXCESS 0.2 mmol/L (-2.0-2.0); BG CARBOXYHEMOGLOBIN 0.3 % (0.5-1.5); BG DEOXYHEMOGLOBIN 1.2 % (0.0-5.0); BG FRACTION INSPIRED OXYGEN 100; BG HCO3 ACT 26.3 mmol/L (22.0-26.0); BG METHEMOGLOBIN 0.3 % (0.0-1.5); BG OXYGEN SATURATION 98.8 % (92.0-98.5); BG OXYHEMOGLOBIN 98.2 % (94.0-97.0); BG PCO2 49.8 mmHg (35.0-45.0); BG PH 7.341 (7.350-7.450); BG SAMPLE SITE RIGHT RADIAL; BG TOTAL HEMOGLOBIN 9.4 g/dL (12.0-18.0); BG VENT MODE PRVC
[2020-12-05] MEDS ORDERED: INSULIN GLARGINE UD 100 UNITS/ML SYR SUBCUT SCH (22:00)
[2020-12-06] VITALS (62 sets, daily range): BP systolic 42–129; BP diastolic 27–77
[2020-12-06] MEDS: IPRATROPIUM BROMIDE (0.02%) 0.5MG/2.5ML NEB HHN SCH ×3 (02:10→08:12)
[2020-12-06] MEDS: INSULIN LISPRO 100 UNITS/ML SUBCUT SCH (05:12)
[2020-12-06] MEDS: BLOOD SUGAR DIAGNOSTIC STRIP TEST SCH (05:12)
[2020-12-06] MEDS: PHENYLEPHRINE 100 MG in DEXT 5% WATER 240 ML IV PRN (05:14)
[2020-12-06] MEDS: METHYLPREDNISOLONE SOD SUCC 40 MG/ML VIAL IV SCH (05:14)
[2020-12-06 06:03] LABS: HEMATOCRIT. 24.8 % (42.0-52.0); HEMOGLOBIN. 7.7 g/dL (14.0-18.0); MEAN CORPUSCULAR HEMOGLOBIN 25.8 pg (28.0-32.0); RED BLOOD CELL COUNT 2.98 mill/uL (4.7-6.1); RED CELL DISTRIBUTION WIDTH 18.8 % (11.6-14.6)
[2020-12-06] MEDS: DOCUSATE SODIUM SUGAR FREE 100MG/10ML UDC JT SCH (09:00)
[2020-12-06] MEDS ORDERED: SODIUM POLYSTYRENE SULFONATE 15 G/60 ML BOT PO NR (09:00)
[2020-12-06] MEDS: MIDODRINE HCL 5MG TABLET JT SCH (09:00)
[2020-12-06] MEDS: HALOPERIDOL 2MG TABLET JT SCH (09:00)
[2020-12-06] MEDS: AMIODARONE HCL 200 MG TABLET JT SCH (09:00)
[2020-12-06] MEDS ORDERED: SODIUM POLYSTYRENE SULFONATE 15 G/60 ML BOT PR NR (10:00)
[2020-12-06 10:11] LABS: NUCLEATED RED BLOOD CELLS 30 /100 WBC
[2020-12-06] MEDS: LIDOCAINE 5% PATCH TOP SCH (10:12)
[2020-12-06 10:13] LABS: PLATELET ESTIMATE DECREASED
[2020-12-06 10:19] LABS: PLATELET 64 x1000/uL (130-400)
[2020-12-06] MEDS ORDERED: MORPHINE SULFATE 250 MG in DEXT 5% WATER 225 ML IV PRN (10:30)
[2020-12-06] MEDS ORDERED: TOTAL PARENTERAL NUTRITION 1,600 ML IV SCH ×2 (10:45→18:00)
[2020-12-06] MEDS ORDERED: DOCUSATE SODIUM 100MG CAPSULE PO SCH (15:00)
== END 2020-12-06 19:52 | DRG 853 ==
LOC: ER 14:38 → 5WST 17:24 → EDBEDREQ 17:36 → ENRESERV 09-16 02:17 → CVICU 09-16 03:19 → 3WST 09-30 17:03 → CVICU 10-04 19:10 → 3WST 10-09 22:18 → CVICU 10-13 13:38 → 3WST 10-27 22:34 → MICUSO 11-04 01:12 → 3WST 11-13 23:42 → CVICU 11-29 14:20
PROVIDERS: ADMIT Family Medicine Adult Medicine; ATTEND Family Medicine Adult Medicine
PROC: 0DJ08ZZ Inspection of Upper Intestinal Tract, Via Natural or Artificial Opening Endoscopic (ICD-10-PCS; 2020-09-23)
PROC: 02HV33Z Insertion of Infusion Device into Superior Vena Cava, Percutaneous Approach (ICD-10-PCS; 2020-09-27)
PROC: B5181ZA Fluoroscopy of Superior Vena Cava using Low Osmolar Contrast, Guidance (ICD-10-PCS; 2020-09-27)
PROC: B548ZZA Ultrasonography of Superior Vena Cava, Guidance (ICD-10-PCS; 2020-09-27)
PROC: 0BBC0ZZ Excision of Right Upper Lung Lobe, Open Approach (ICD-10-PCS; principal; 2020-09-28)
PROC: 30233N1 Transfusion of Nonautologous Red Blood Cells into Peripheral Vein, Percutaneous Approach (ICD-10-PCS; 2020-09-28)
PROC: 0BNM0ZZ Release Bilateral Lungs, Open Approach (ICD-10-PCS; 2020-09-28)
PROC: 0BQ Respiratory System, Repair (ICD-10-PCS; 2020-09-28)
PROC: 0DHA0UZ Insertion of Feeding Device into Jejunum, Open Approach (ICD-10-PCS; 2020-09-29)
PROC: 0W9930Z Drainage of Right Pleural Cavity with Drainage Device, Percutaneous Approach (ICD-10-PCS; 2020-10-07)
PROC: 0BB Respiratory System, Excision (ICD-10-PCS; 2020-10-07)
PROC: 05HY33Z Insertion of Infusion Device into Upper Vein, Percutaneous Approach (ICD-10-PCS; 2020-10-16)
PROC: B54MZZA Ultrasonography of Right Upper Extremity Veins, Guidance (ICD-10-PCS; 2020-10-16)
PROC: 0DPD3UZ Removal of Feeding Device from Lower Intestinal Tract, Percutaneous Approach (ICD-10-PCS; 2020-10-23)
PROC: 0DHA3UZ Insertion of Feeding Device into Jejunum, Percutaneous Approach (ICD-10-PCS; 2020-10-23)
PROC: 0DN80ZZ Release Small Intestine, Open Approach (ICD-10-PCS; 2020-11-12)
PROC: 0DPD3UZ Removal of Feeding Device from Lower Intestinal Tract, Percutaneous Approach (ICD-10-PCS; 2020-11-27)
PROC: 0DHA3UZ Insertion of Feeding Device into Jejunum, Percutaneous Approach (ICD-10-PCS; 2020-11-27)
PROC: 0BH17EZ Insertion of Endotracheal Airway into Trachea, Via Natural or Artificial Opening (ICD-10-PCS; 2020-11-29)
PROC: 5A1955Z Respiratory Ventilation, Greater than 96 Consecutive Hours (ICD-10-PCS; 2020-11-29)
DX: A41.51 Sepsis due to Escherichia coli [E. coli] (principal); J86.0 Pyothorax with fistula; J69.0 Pneumonitis due to inhalation of food and vomit; G93.41 Metabolic encephalopathy; R65.21 Severe sepsis with septic shock; J15.5 Pneumonia due to Escherichia coli; E43 Unspecified severe protein-calorie malnutrition; I26.99 Other pulmonary embolism without acute cor pulmonale; J96.21 Acute and chronic respiratory failure with hypoxia; J96.22 Acute and chronic respiratory failure with hypercapnia; G62.81 Critical illness polyneuropathy; J84.9 Interstitial pulmonary disease, unspecified; I48.92 Unspecified atrial flutter; N17.9 Acute kidney failure, unspecified; E87.1 Hypo-osmolality and hyponatremia; J90 Pleural effusion, not elsewhere classified; I31.3 Pericardial effusion (noninflammatory); K94.13 Enterostomy malfunction; J94.8 Other specified pleural conditions; D68.59 Other primary thrombophilia; E87.0 Hyperosmolality and hypernatremia; E87.4 Mixed disorder of acid-base balance; F11.20 Opioid dependence, uncomplicated; J98.11 Atelectasis; Z16.12 Extended spectrum beta lactamase (ESBL) resistance; K94.23 Gastrostomy malfunction; Z66 Do not resuscitate; R57.0 Cardiogenic shock; J43.9 Emphysema, unspecified; R65.20 Severe sepsis without septic shock; D50.9 Iron deficiency anemia, unspecified; E78.5 Hyperlipidemia, unspecified; F10.21 Alcohol dependence, in remission; M19.90 Unspecified osteoarthritis, unspecified site; I27.29 Other secondary pulmonary hypertension; E83.42 Hypomagnesemia; E83.39 Other disorders of phosphorus metabolism; E11.649 Type 2 diabetes mellitus with hypoglycemia without coma; I48.0 Paroxysmal atrial fibrillation; K66.0 Peritoneal adhesions (postprocedural) (postinfection); E87.6 Hypokalemia; C14.0 Malignant neoplasm of pharynx, unspecified; D63.8 Anemia in other chronic diseases classified elsewhere; D69.6 Thrombocytopenia, unspecified; D75.89 Other specified diseases of blood and blood-forming organs; E86.0 Dehydration; F17.210 Nicotine dependence, cigarettes, uncomplicated; R62.7 Adult failure to thrive; I10 Essential (primary) hypertension; K21.9 Gastro-esophageal reflux disease without esophagitis; E86.1 Hypovolemia; E87.5 Hyperkalemia; G89.4 Chronic pain syndrome; K59.00 Constipation, unspecified; R26.9 Unspecified abnormalities of gait and mobility; R33.9 Retention of urine, unspecified; Y83.8 Other surgical procedures as the cause of abnormal reaction of the patient, or of later complication, without mention of misadventure at the time of the procedure; Z20.822 Contact with and (suspected) exposure to COVID-19; K22.2 Esophageal obstruction; Z92.3 Personal history of irradiation; Z92.21 Personal history of antineoplastic chemotherapy; Z85.01 Personal history of malignant neoplasm of esophagus; Z82.49 Family history of ischemic heart disease and other diseases of the circulatory system; Z83.3 Family history of diabetes mellitus; Z99.81 Dependence on supplemental oxygen; Z68.23 Body mass index [BMI] 23.0-23.9, adult; Y82.8 Other medical devices associated with adverse incidents; K22.8 Other specified diseases of esophagus
CPT/HCPCS: 31500; 36415; 36598; 36600; 49450; 71045; 71250; 71275; 74018; 74176; 74220; 76770; 76937; 78227; 80048; 80053; 80061; 80162; 80202; 80305; 81003; 82040; 82270; 82375; 82550; 82553; 82607; 82728; 82746; 82805; 82962; 83036; 83540; 83550; 83605; 83735; 83880; 84100; 84134; 84145; 84443; 84478; 84484; 85014; 85018; 85025; 85027; 85049; 85379; 85384; 86850; 86900; 86920; 87070; 87075; 87077; 87106; 87116; 87186; 87426; 88108; 88305; 88312; 92523; 92610; 93005; 93306; 93970; 94002; 94003; 94640; 97110; 97162; 97164; 97168; 97530; 97535; 99285; A6261; A9537; C1725; C1751; C1769; C1893; C9113; J0282; J0330; J0360; J0456; J0690; J0696; J1100; J1120; J1160; J1170; J1630; J1644; J1650; J1815; J1885; J1940; J2060; J2185; J2248; J2250; J2270; J2274; J2370; J2405; J2704; J2710; J2765; J2920; J2930; J3010; J3370; J3475; J3480; J3490; J7030; J7040; J7042; J7050; J7060; J7070; J7131; J7608; J7626; L3908; P9016; P9041; P9047; Q9967; U0003; A4315